=== PATIENT | male | born 1995 | race Caucasian/White ===

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

== ENCOUNTER 2017-01-13 22:41 | Inpatient (IN) | payer OTHER ==
[~2017-01-13] VITALS: Ht 162.6 cm; Wt 48.9 kg
[2017-01-13] MEDS ORDERED: ONDANSETRON INJ 2 MG/ML 2 ML VIAL IV STA (23:22)
[2017-01-13] MEDS ORDERED: MoRPHine SULFATE 10 MG/ML CARP/VIAL IV STA (23:22)
[2017-01-13] MEDS ORDERED: SODIUM CHLORIDE 0.9% 1000ML 1,000 ML IV STA (23:22)
[2017-01-13] MEDS ORDERED: SODIUM CHLORIDE 0.9% 1000ML 1,000 ML IV ONE (23:22)
--- NOTE | 2017-01-13 23:29 | EMERGENCY ROOM VISIT NOTE ---
History Report prepared by [facility]: Doreen Winston Under the Supervision of: Dr. Alex Nogueira M.D. First contact with patient: 23:16 Chief Complaint: ABDOMINAL PAIN Stated Complaint: PAIN Nursing Triage Summary: pt reports hx of sickle cell and a bad spleen. had sudden onset RUQ abdominal pain tonight. pt denies N/V/D. rates pain 10/10. History of Present Illness The patient is a 21 year old male who presents to the Emergency Room with complaints of persistent left upper quadrant abdominal pain that began today. He currently rates his discomfort as a 10/10 in severity. The patient states that he has a history of sickle cell anemia and states that he has a bad spleen. He states that his pain began suddenly today. The patient states that he is feeling short of breath today. He denies any trauma or injury to the area. The patient denies any fever chills, nausea, vomiting, or urinary symptoms. He states that he has had this happen in the past, noting that he previously used oxycodone for his discomfort. The patient denies any joint aches. He denies taking anything for his discomfort today. Source of History: patient Onset: today Position: abdomen (LUQ) Symptom Intensity: 10/10 Timing: other Associated Symptoms: + SOB, No chills, No fevers, No nausea, No vomiting Review of Systems See HPI for pertinent positives & negatives. A total of 10 systems reviewed and were otherwise negative. Past Medical & Surgical Medical Problems: (1) Elevated bilirubin (2) Intractable abdominal pain (3) Sickle cell anemia (4) Sickle cell anemia Old medical records were reviewed. Nurse's notes were reviewed and I agree with. 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 Normal speech HEENT: Normal cephalic atraumatic. Pupils are equal round and reactive to light. Sclera anicteric. Extraocular movements are intact. Oropharynx is pink with moist mucous membranes. No swelling of the mouth lips or tongue. Neck: Supple with a midline trachea. No meningeal signs or stiffness, no JVD or bruits. No Stridor. Chest: Clear to auscultation bilaterally. No wheezes or rhonchi. No increased work of breathing. Heart: regular rate and rhythm. Abdomen: Minimally diffusely tender. Soft, nondistended without rebound guarding or rigidity. Extremities: No cyanosis clubbing or edema. No calf tenderness or assymetry Spine/Back. Non tender to palpation. No CVA tenderness Skin: Good turgor without rashes. Neurologic exam: Cranial nerves two through 12 are intact. Motor and sensation are intact and symmetrical throughout. Medical Decision & Procedures ER Provider Diagnostic Interpretation: Chest x-ray per my interpretation reveals no pneumothorax, failure, infiltrate, or free air. CT results as stated below per my review and radiologist interpretation: CT Abdomen and Pelvis: Comparison is made to CT dated 11/01/16. There is minimal patchy groundglass opacity in the dependent right lower lobe. There is periportal edema, increased from prior exam. This can be seen in the setting of aggressive IV hydration in addition to pathological causes. The gallbladder, pancreas, adrenal glands, and kidneys are within normal limits. There is splenomegaly measuring 13.4 cm, decreased from 17 cm previously. Again noted are regions of infarction involving the inferior and medial spleen. The proportion of splenic tissue which enhances normally has increased from prior exam, no exceeding 50%. There is no perisplenic fluid. There is no evidence of small or large bowel obstruction. Multiple fluid- filled loops of small bowel are noted and may represent a nonspecific enteritis. The appendix is not clearly visualized, but there are no secondary signs of acute appendicitis. Urinary bladder and prostate are unremarkable. There are no acute osseous findings. There is stable mild H-shaped configuration of vertebral bodies, compatible with sickle cell disease. Radiologist: Mino Paz MD Study ready at 0041 and initial results transmitted at 0054 Laboratory Results 01/13/17 22:55 Red Blood Count 4.71, Mean Corpuscular Volume 70.9, Mean Corpuscular Hemoglobin 25.3, Mean Corpuscular Hemoglobin Concent 35.6, Neutrophils (%) (Auto) 34.6, Lymphocytes (%) (Auto) 46.0, Monocytes (%) (Auto) 13.2, Eosinophils (%) (Auto) 5.5, Basophils (%) (Auto) 0.5, Neutrophils # (Auto) 3.15, Lymphocytes # (Auto) 4.19, Monocytes # (Auto) 1.20, Eosinophils # (Auto) 0.50, Basophils # (Auto) 0.05 01/13/17 22:55 Test 01/13/17 22:55 White Blood Count 9.11 K/uL (4.8-10.8) Red Blood Count 4.71 M/uL (4.7-6.1) Hemoglobin 11.9 g/dL (14.0-18.0) Hematocrit 33.4 % (42-52) Mean Corpuscular Volume 70.9 fL (80-100) Mean Corpuscular Hemoglobin 25.3 pg (25-34) Mean Corpuscular Hemoglobin Concent 35.6 g/dl (32-36) Platelet Count 271 K/uL (130-400) Neutrophils (%) (Auto) 34.6 % Lymphocytes (%) (Auto) 46.0 % Monocytes (%) (Auto) 13.2 % Eosinophils (%) (Auto) 5.5 % Basophils (%) (Auto) 0.5 % Neutrophils # (Auto) 3.15 K/uL (1.4-6.5) Lymphocytes # (Auto) 4.19 K/uL (1.2-3.4) Monocytes # (Auto) 1.20 K/uL (0.11-0.59) Eosinophils # (Auto) 0.50 K/uL (0-0.5) Basophils # (Auto) 0.05 K/uL (0-0.2) RDW Standard Deviation 41.5 fL (36.4-46.3) RDW Coefficient of Variation 16.0 % (11.5-14.5) Immature Granulocyte % (Auto) 0.2 % Immature Granulocyte # (Auto) 0.02 K/uL (0.00-0.02) Absolute Reticulocyte Count 0.11 10^6/uL (0.02-0.10) Percent Reticulocyte Count 2.4 % (0.5-2.0) Anion Gap 9.0 mmol/L (3-11) Est Creatinine Clear Calc Drug Dose 120.9 ml/min Estimated GFR () > 150.0 Estimated GFR (Non- 138.5 BUN/Creatinine Ratio 12.5 (10-20) Calcium Level 8.8 mg/dl (8.5-10.1) Total Bilirubin 3.3 mg/dl (0.2-1) Direct Bilirubin 0.5 mg/dl (0-0.2) Aspartate Amino Transf (AST/SGOT) 48 U/L (15-37) Alanine Aminotransferase (ALT/SGPT) 44 U/L (12-78) Alkaline Phosphatase 51 U/L (45-117) Total Protein 8.3 gm/dl (6.4-8.2) Albumin 4.5 gm/dl (3.4-5.0) Lipase 92 U/L (73-393) Laboratory studies as stated above per my review. Medications Administered Medications (Trade) Dose Ordered Sig/Enmanuel Route Start Time Stop Time Status Last Admin Dose Admin Sodium Chloride 1,000 ml @ 999 mls/hr Q1H1M STAT IV 01/13/17 23:22 01/14/17 00:22 DC 01/13/17 23:31 999 MLS/HR Sodium Chloride (Nss 1000ml) 1,000 ml @ 200 mls/hr Q5H ONCE IV 01/13/17 23:22 01/14/17 02:54 DC 01/13/17 23:32 200 MLS/HR Ondansetron HCl (Zofran Inj) 4 mg NOW STAT IV 01/13/17 23:22 01/13/17 23:25 DC 01/13/17 23:31 4 MG Morphine Sulfate (MoRPHine SULFATE INJ) 6 mg NOW STAT IV 01/13/17 23:22 01/13/17 23:25 DC 01/13/17 23:32 6 MG Naloxone HCl (Narcan Inj) 0.4 mg STK-MED ONCE .ROUTE 01/13/17 23:33 01/13/17 23:36 DC 01/13/17 23:38 0.2 MG ED Course 2317: Past medical records reviewed. The patient was evaluated in room A12B, and a complete history and physical examination were performed. 2322: Ordered Morphine Sulfate 6 mg IV, Zofran Inj 4 mg IV, Sodium Chloride 1000 ml @ 200 mls/hr IV, Sodium Chloride 1000 ml @ 999 mls/hr IV. 2333: Ordered Narcan Inj 0.4 mg .route. 2337: After the patient received his narcotics, he became unresponsive and his saturation dropped. The patient was given .2 of Narcan and placed on oxygen. He immediately woke up. 2348: I reevaluated the patient and he is resting comfortably. He is mildly sleepy but arousable. He answers questions appropriately. The patient has an O2 saturation of 100%. 2358: I reevaluated the patient and he is awake, but still has mild pain. His vitals are stable. The patient is going to have a CT scan. 0018: I went to reevaluate the patient and he is at CT scan. 0054: I reevaluated the patient and he is pain free and resting comfortably. 0110: I discussed the patients case with Arthur Benitez. He recommends that the patient is evaluated for further treatment. 0116: I reevaluated the patient and he is resting. I discussed the exam findings with him and I discussed the treatment plan. He verbalized complete understanding and agreement. He will be evaluated for further treatment. 0129: I discussed the patients case with Dr. Koch, [facility] Resident. She will evaluate the patient for further treatment. Medical Decision Differentials include, but are not limited to; sickle cell crisis, gallbladder disease, liver disease, splenic process, electrolyte or metabolic abnormality, dehydration, anemia. This patient comes in as described above. He apparently has sickle cell disease and has abdominal pain and he's had this before. 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 He appears uncomfortable but his abdomen is nontender or distended. IV access established and blood work was obtained. I reviewed his old records and the last time and she was given morphine 6 mg IV and I gave him the same dose and it was given slowly however this made the patient very somnolent and he got briefly hypoxemic and unresponsive. He was given 0.2 mg of Narcan IV and woke up immediately. He remained stable after that and woke up and started complaining that he wanted more pain medication. He is not significantly anemic compared to baseline. He has no white count or fever to suggest infection. He has no significant electrolyte or metabolic abnormalities is told the bilirubin is mildly elevated as intensity of baseline is most likely related to his underlying hemoglobinopathy. He continue to be on a monitor while he was here I did a CT of his abdomen and pelvis. CAT scan shows no definite findings acutely. He does have splenic infarct which looks less than in October. I did discuss case Dr. Benitez ,who recommended we continue IV hydration and oxygen and he will see him in the morning and will likely be a little be discharged after some observation. The patient seems a feeling much better at present without pain. I did relay to the admitting team as well his sensitivity to pain medication. He will be observed Consults Time Called: 0108 Consulting Physician: Dr. Benitez, Oncology Returned Call: 0110 I discussed the patients case with Eli, Oncology. He recommends that the patient is evaluated for further treatment. Additional Consults: Time Called: 0128 Consulted Physician: LEENA Yang Resident Returned Call: 0129 Additional Comments: I discussed the patients case with Dr. Koch, [facility] [place] Resident. She will evaluate the patient for further treatment. Impression Primary Impression: Central abdominal pain Additional Impressions: Sickle cell disease Splenic infarct Scribe Attestation The scribe's documentation has been prepared under my direction and personally reviewed by me in its entirety. I confirm that the note above accurately reflects all work, treatment, procedures, and medical decision making performed by me. Departure Information Dispostion Being Evaluated By Hospitalist Prescriptions No Active Prescriptions or Reported Meds Referrals No Doctor, Assigned (PCP) Problem Qualifiers
[2017-01-13] MEDS ORDERED: NALOXONE HCL 0.4 MG/1 ML VIAL/CARP ONE (23:33)
[2017-01-13 23:39] LABS: BASO % 0.5 %; BASO ABS # 0.05 K/uL (0-0.2); COMPLETE YES; EOS % 5.5 %; HEMATOCRIT 33.4 % (42-52); IG% 0.2 %; LYMPH ABS # 4.19 K/uL (1.2-3.4); MEAN CELL VOLUME 70.9 fL (80-100); MEAN CORPUSCULAR HEMOGLOBIN 25.3 pg (25-34); MEAN CORPUSCULAR HGB CONC 35.6 g/dl (32-36); MONO % 13.2 %; NEUT % 34.6 %; PLATELET COUNT 271 K/uL (130-400); RED BLOOD COUNT 4.71 M/uL (4.7-6.1); WHITE BLOOD COUNT 9.11 K/uL (4.8-10.8)
[2017-01-13 23:54] LABS: BLOOD UREA NITROGEN 9 mg/dl (7-18); BUN/CREATININE RATIO 12.5 (10-20); CALCIUM 8.8 mg/dl (8.5-10.1); CARBON DIOXIDE 30 mmol/L (21-32); CHLORIDE 105 mmol/L (98-107); CREATININE 0.68 mg/dl (0.60-1.40); GLUCOSE 114 mg/dl (70-99); POTASSIUM 3.5 mmol/L (3.5-5.1); SODIUM 144 mmol/L (136-145)
[2017-01-13 23:57] LABS: ALKALINE PHOSPHATASE 51 U/L (45-117); ALT/SGPT 44 U/L (12-78); AST/SGOT 48 U/L (15-37)
[2017-01-14] MEDS ORDERED: OPTIRAY 320 IV PRN
[2017-01-14] MEDS ORDERED: POLYETHYLENE (MIRALAX) 17 GM PACK PO PRN (02:00)
[2017-01-14] MEDS ORDERED: MAGNESIUM HYDROXIDE SUSP 30 ML UDC PO PRN (02:00)
[2017-01-14] MEDS ORDERED: ZOLPIDEM TARTRATE 5 MG TAB PO PRN (02:00)
[2017-01-14] MEDS ORDERED: ONDANSETRON INJ 2 MG/ML 2 ML VIAL IV PRN (02:00)
[2017-01-14] MEDS ORDERED: ACETAMINOPHEN 325 MG TAB PO PRN (02:00)
[2017-01-14] MEDS ORDERED: ALUMINUM/MAGNESIUM/SIMETH (MAALOX MAX) 30 ML UDC PO PRN (02:00)
--- NOTE | 2017-01-14 02:10 | History and Physical ---
History & Physical Date & Time of Service: Jan 14, 2017 at 02:02 Chief Complaint: PAIN Primary Care Physician: Jeronimo Benitez D.O. 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 He was recently admitted in October and found to have a splenic infarct after flying back from [facility] and was dehydrated. He reports ascites been getting abdominal pain monthly when she will just take oxycodone for annual resolved. He developed severe sudden onset pain today, this is located in the epigastric region, was associated with shortness of breath, and he felt he "felt like he was going to " so he came to the ED. He was given 6 mg of IV morphine, this was where he would've received previously, but then his saturations dropped and he ended up needing Narcan. Currently he reports his pain is better controlled. He denies feeling short of breath anymore. He was meant to have an appointment with Dr. Benitez tomorrow at 8:30 to discuss going on hydroxyurea. 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 A total of 10 systems reviewed and were otherwise negative. Physical Exam Vital Signs Date Time Temp Pulse Resp B/P Pulse Ox O2 Delivery O2 Flow Rate FiO2 01/14/17 00:35 62 16 112/81 100 Nasal Cannula 2.0 01/13/17 22:44 36.4 64 22 111/74 97 Room Air GENERAL: Awake, alert, well-appearing, in no acute distress HENT: Normocephalic, atraumatic. Oropharynx unremarkable. EYES: Normal conjunctiva. Sclera non-icteric. NECK: Supple. No nuchal rigidity. FROM. No JVD. RESPIRATORY: Clear to auscultation. CARDIAC: Regular rate, normal rhythm. Extremities warm and well perfused. Pulses equal. ABDOMEN: Soft, non-distended. Mild epigastric tenderness to palpation. No rebound or guarding. No masses. RECTAL: Deferred. MUSCULOSKELETAL: Chest examination reveals no tenderness. The back is symmetrical on inspection without obvious abnormality. There is no CVA tenderness to palpation. No joint edema. LOWER EXTREMITIES: Calves are equal size bilaterally and non-tender. No edema. No discoloration. NEURO: Normal sensorium. No sensory or motor deficits noted. SKIN: No rash or jaundice noted. Diagnostics Laboratory Results Results Past 24 Hours Test 01/13/17 22:55 Range/Units White Blood Count 9.11 4.8-10.8 K/uL Red Blood Count 4.71 4.7-6.1 M/uL Hemoglobin 11.9 14.0-18.0 g/dL Hematocrit 33.4 42-52 % Mean Corpuscular Volume 70.9 80-100 fL Mean Corpuscular Hemoglobin 25.3 25-34 pg Mean Corpuscular Hemoglobin Concent 35.6 32-36 g/dl Platelet Count 271 130-400 K/uL Neutrophils (%) (Auto) 34.6 % Lymphocytes (%) (Auto) 46.0 % Monocytes (%) (Auto) 13.2 % Eosinophils (%) (Auto) 5.5 % Basophils (%) (Auto) 0.5 % Neutrophils # (Auto) 3.15 1.4-6.5 K/uL Lymphocytes # (Auto) 4.19 1.2-3.4 K/uL Monocytes # (Auto) 1.20 0.11-0.59 K/uL Eosinophils # (Auto) 0.50 0-0.5 K/uL Basophils # (Auto) 0.05 0-0.2 K/uL RDW Standard Deviation 41.5 36.4-46.3 fL RDW Coefficient of Variation 16.0 11.5-14.5 % Immature Granulocyte % (Auto) 0.2 % Immature Granulocyte # (Auto) 0.02 0.00-0.02 K/uL Absolute Reticulocyte Count 0.11 0.02-0.10 10^6/uL Percent Reticulocyte Count 2.4 0.5-2.0 % Sodium Level 144 136-145 mmol/L Potassium Level 3.5 3.5-5.1 mmol/L Chloride Level 105 98-107 mmol/L Carbon Dioxide Level 30 21-32 mmol/L Anion Gap 9.0 3-11 mmol/L Blood Urea Nitrogen 9 7-18 mg/dl Creatinine 0.68 0.60-1.40 mg/dl Est Creatinine Clear Calc Drug Dose 120.9 ml/min Estimated GFR () > 150.0 Estimated GFR (Non- 138.5 BUN/Creatinine Ratio 12.5 10-20 Random Glucose 114 70-99 mg/dl Calcium Level 8.8 8.5-10.1 mg/dl Total Bilirubin 3.3 0.2-1 mg/dl Direct Bilirubin 0.5 0-0.2 mg/dl Aspartate Amino Transf (AST/SGOT) 48 15-37 U/L Alanine Aminotransferase (ALT/SGPT) 44 12-78 U/L Alkaline Phosphatase 51 45-117 U/L Total Protein 8.3 6.4-8.2 gm/dl Albumin 4.5 3.4-5.0 gm/dl Lipase 92 73-393 U/L Diagnostic Radiology CT Abdomen and Pelvis: Comparison is made to CT dated 11/01/16. There is minimal patchy groundglass opacity in the dependent right lower lobe. There is periportal edema, increased from prior exam. This can be seen in the setting of aggressive IV hydration in addition to pathological causes. The gallbladder, pancreas, adrenal glands, and kidneys are within normal limits. There is splenomegaly measuring 13.4 cm, decreased from 17 cm previously. Again noted are regions of infarction involving the inferior and medial spleen. The proportion of splenic tissue which enhances normally has increased from prior exam, no exceeding 50%. There is no perisplenic fluid. There is no evidence of small or large bowel obstruction. Multiple fluid- filled loops of small bowel are noted and may represent a nonspecific enteritis. The appendix is not clearly visualized, but there are no secondary signs of acute appendicitis. Urinary bladder and prostate are unremarkable. There are no acute osseous findings. There is stable mild H-shaped configuration of vertebral bodies, compatible with sickle cell disease. Radiologist: Mino Paz MD Study ready at 0041 and initial results transmitted at 0059 Impression Assessment and Plan 21 yo M with sickle cell with acute abdominal pain, likely from enteritis Abdominal pain - Toradol 15mg q4h - Morphine 1-2mg q4h PRN - IV fluids - Regular diet Sickle cell - Consult Dr Benitez Level of Care Med/Surg VTE Prophylaxis VTE Risk Assessment Done? Y/N: Yes Risk Level: Moderate Resident Tracking Resident Involvement: Resident Care Provided Care Provided: Adult [facility] Medicine Assessment and Plan Attending Addendum: I have physically seen and examined this patient, have directed their medical care, have supervised the medical residents activities, and agree with the H&P as noted above, with the following changes: The patient is awake, well-developed and adequately nourished, alert and oriented 3, normocephalic and atraumatic, lying in bed and in no acute distress. HEENT--PERRL, EOMI, mucous membranes and oropharynx dry. Neck--supple, no JVD or bruits, thyroid normal, trachea midline, no adenopathy. Heart--normal S1 and S2, no extra beats, no murmurs, rubs or gallops. Lungs--clear bilaterally with good air movement, no respiratory distress, no accessory muscle use. Abdomen--normal bowel sounds and soft, nontender and nondistended, no hernias or masses, no organomegaly. Extremities--no cyanosis, clubbing or edema. There are good distal pulses b/l. Dermatologic--normal skin turgor, normal color, warm and dry, no abnormal lymph nodes, no rash. Neurologic--cranial nerves II through XII grossly intact, motor and sensory examination normal. Rheumatologic--normal range of motion, nontender, muscles and joints. Psychiatric--normal affect. Assessment and Plan: Sickle cell disease/acute abdominal pain/history of splenic infarcts/enteritis-- the patient be admitted to the hospital. He'll be allowed a regular diet, IV fluids at 100 mils per hour, Zofran 4 mg IV every 6 hours when necessary, Protonix 40 mg IV daily, Toradol 15 mg IV every 4 hours when necessary, and morphine sulfate 12 mg IV every 4 hours when necessary. 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
[2017-01-14] MEDS ORDERED: KETOROLAC TROMETHAMINE 15 MG/ML VIAL IV PRN (02:15)
[2017-01-14] MEDS ORDERED: MoRPHine SULFATE 2 MG/ML CARP IV PRN (02:15)
[2017-01-14 02:40] VITALS: BP 111/74; PULSE 51; TEMP 37.9; O2SAT 100; Ht 162.6 cm; Wt 48.9 kg
[2017-01-14] MEDS ORDERED: SODIUM CHLOR 0.45% + 20MEQ KCL 1,000 ML IV SCH (03:00)
[2017-01-14 05:46] LABS: URINE APPEARANCE CLOUDY (CLEAR); URINE BILIRUBIN NEG (NEG); URINE COLOR YELLOW; URINE NITRITE NEG (NEG); URINE PH 7.5 (4.5-7.5); URINE SPECIFIC GRAVITY 1.034 (1.000-1.030); UROBILINOGEN NEG (NEG)
[2017-01-14 05:47] LABS: MANUAL MICROSCOPIC REQUIRED? NO; REVIEW REQ? NO
--- NOTE | 2017-01-14 07:29 | DIAGNOSTIC IMAGING REPORT ---
CHEST ONE VIEW PORTABLE HISTORY: Atypical CHEST PAIN COMPARISON: Chest 11/01/2016. FINDINGS: The lungs are clear. Cardiac silhouette is top normal in size. No pleural effusions. No pneumothorax. IMPRESSION: No acute process. Electronically signed by: Rodolfo Anna M.D. 01/14/2017 7:28 AM Dictated Date/Time: 01/14/2017 7:26 AM
--- NOTE | 2017-01-14 07:50 | DIAGNOSTIC IMAGING REPORT ---
ABDOMEN AND PELVIS CT WITH IV CONTRAST CT DOSE: 265.49 mGy.cm HISTORY: eval for splenic disease, upper abdominal pain. TECHNIQUE: Multiaxial CT images of the abdomen and pelvis were performed following the use of intravenous contrast. COMPARISON STUDY: Abdomen and pelvis CT 11/01/2016. FINDINGS: The heart remains top normal in size. Faint groundglass densities within the right lower lobe posteriorly. These are new from the prior study. The left lung base is clear. No pneumoperitoneum. No pneumatosis. No fractures within the visualized osseous structures. Mild periportal edema which could be due to overhydration. No hepatic masses. The adrenal glands and pancreas are unremarkable. There is a small gallstone. The kidneys enhance normally. No hydronephrosis. No retroperitoneal lymphadenopathy. Mild mesenteric lymphadenopathy persists. Normal bladder. No bowel wall thickening or obstruction. Normal appendix. The spleen is decreased in size and now measures 13 cm in length, previously measuring 17 cm. The decreased enhancement within the inferior and medial aspect of the spleen is consistent with a splenic infarct. This has improved. Moderately distended debris-filled stomach. This remains unchanged. IMPRESSION: 1. Decrease in size of the spleen with improvement in the splenic infarct. 2. Faint patchy groundglass airspace opacities within the right lower lobe posteriorly. This could represent atelectasis, a small area of pneumonia, or acute chest syndrome given the patient's history of sickle cell disease. 3. Cholelithiasis. 4. No bowel wall thickening or obstruction. 5. Mild mesenteric lymphadenopathy, unchanged. 6. Mild periportal edema which could be due to overhydration. Electronically signed by: Rodolfo Anna M.D. 01/14/2017 7:48 AM Dictated Date/Time: 01/14/2017 7:42 AM
--- NOTE | 2017-01-14 08:27 | Progress Note ---
Progress Note Date of Service Jan 14, 2017. Progress Note Patient admitted in the early am for Sickle Cell crisis. Pain is controlled now. awaiting consult from heme/onc.
--- NOTE | 2017-01-14 08:45 | Oncology Consultation ---
Oncology/Heme Consultation Date of Consultation: Jan 14, 2017. Attending Physician: René Bundy M.D. 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 He is really never had an issue with crisis except when he was much younger. However recently he was hospitalized with splenic infarction. He was actually scheduled to follow-up in our clinic today. Last evening he was admitted with sharp midepigastric abdominal pain that seemed to radiate into the left upper quadrant. He became concerned and presented to the emergency room. Blood work was acceptable. Interestingly the CT scan which was reviewed shows a fair amount of splenic tissue that has radiologically recovered since his splenic infarction. Otherwise the really wasn't much change to his CT scan. This morning he feels generally well. He states his pain is better. 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 student Allergies Coded Allergies: No Known Allergies (Unverified , 11/01/16) Home Medications No Active Prescriptions or Reported Meds Current Inpatient Medications Current Inpatient Medications Medications (Trade) Dose Ordered Sig/Enmanuel Route Start Time Stop Time Status Last Admin Dose Admin Ioversol (Optiray 320) 100 ml UD PRN IV 01/14/17 00:00 01/18/17 00:00 Al Hydrox/Mg Hydrox/Simethicone (Maalox Max Susp) 15 ml Q4H PRN PO 01/14/17 02:00 02/13/17 01:59 Magnesium Hydroxide (Milk Of Magnesia Susp) 30 ml Q6H PRN PO 01/14/17 02:00 02/13/17 01:59 Polyethylene (Miralax Powder Packet) 17 gm DAILY PRN PO 01/14/17 02:00 02/13/17 01:59 Zolpidem Tartrate (Ambien Tab) 5 mg HSZ PRN PO 01/14/17 02:00 02/13/17 01:59 Ondansetron HCl (Zofran Inj) 4 mg Q6H PRN IV 01/14/17 02:00 02/13/17 01:59 Morphine Sulfate (MoRPHine SULFATE INJ) @ Q4H PRN IV 01/14/17 02:15 01/28/17 02:14 Ketorolac Tromethamine 15 mg 15 mg Q6H PRN IV 01/14/17 02:15 01/19/17 02:14 01/14/17 05:21 15 MG Potassium Chloride/Sodium Chloride 1,000 ml @ 100 mls/hr Q10H IV 01/14/17 03:00 01/14/17 22:59 01/14/17 02:59 100 MLS/HR Pantoprazole Sodium/Syringe (Protonix Inj/ Syringe) 10 ml @ 5 mls/min DAILY@11 IV 01/14/17 11:00 02/13/17 10:59 Review of Systems Constitutional: Negative for weight loss, night sweats, or fever Eyes: Negative for event change of vision ENT: Negative for epistaxis, nasal discharge, sore throat, or deafness Cardiovascular: Negative for chest pain, palpitations, dizziness, diaphoresis Respiratory: Negative for new shortness of breath,hemoptysis, or purulent cough Gastrointestinal: Negative for diarrhea, hematemesis, melena, nausea, vomiting , or dyspepsia Integumentary (skin): Negative for rash or jaundice discoloration Genitourinary: Negative for urinary frequency, hematuria, or dysuria Neurological: Negative for weakness, seizure activity, headache, or dizziness Lymphatic/Hematologic: Negative for petechiae, bleeding or new adenopathy Musculoskeletal: Negative for new joint or back pain Allergic/Immunologic: Negative for unusual rash or pruritis. Physical Exam Date Time Temp Pulse Resp B/P Pulse Ox O2 Delivery O2 Flow Rate FiO2 01/14/17 02:40 Nasal Cannula 2.0 01/14/17 02:40 37.9 51 18 111/74 100 Nasal Cannula 2.0 01/14/17 02:21 58 18 97/69 100 01/14/17 02:20 58 18 97/69 100 Nasal Cannula 2.0 01/14/17 00:35 62 16 112/81 100 Nasal Cannula 2.0 01/13/17 22:44 36.4 64 22 111/74 97 Room Air Constitutional: vitals are stable. Eyes: Eyes are RORY EOMI without conjuctival erythema or icterus. ENT: External examination was negative for masses. Neck: Negative for masses or palpable thyromegaly Respiratory: Lung sounds were generally clear bilaterally Cardiovascular: Heart was RRR without significant murmur, gallops aoe rubs Gastrointestinal: No palpable hepatic or splenomegaly. The abdomen was soft with normal bowel sounds. Lymphatic system: there was no palpable peripheral lymphadenopathy Musculoskeletal System: The musculoskeletal system seemed concordant with age. Skin: The skin was negative for jaundice. Neurologic exam: The exam was negative for any focal findings. Deep tendon reflexes were equal and symmetrical. Psychiatric exam: Was essentially negative with normal mood and effect. Extremities: Negative for edema or erythema Laboratory Results Last 24 Hours Test 01/13/17 22:55 01/14/17 00:00 01/14/17 06:35 White Blood Count 9.11 K/uL Red Blood Count 4.71 M/uL Hemoglobin 11.9 g/dL Hematocrit 33.4 % Mean Corpuscular Volume 70.9 fL Mean Corpuscular Hemoglobin 25.3 pg Mean Corpuscular Hemoglobin Concent 35.6 g/dl Platelet Count 271 K/uL Neutrophils (%) (Auto) 34.6 % Lymphocytes (%) (Auto) 46.0 % Monocytes (%) (Auto) 13.2 % Eosinophils (%) (Auto) 5.5 % Basophils (%) (Auto) 0.5 % Neutrophils # (Auto) 3.15 K/uL Lymphocytes # (Auto) 4.19 K/uL Monocytes # (Auto) 1.20 K/uL Eosinophils # (Auto) 0.50 K/uL Basophils # (Auto) 0.05 K/uL RDW Standard Deviation 41.5 fL RDW Coefficient of Variation 16.0 % Immature Granulocyte % (Auto) 0.2 % Immature Granulocyte # (Auto) 0.02 K/uL Absolute Reticulocyte Count 0.11 10^6/uL Percent Reticulocyte Count 2.4 % Sodium Level 144 mmol/L Potassium Level 3.5 mmol/L Chloride Level 105 mmol/L Carbon Dioxide Level 30 mmol/L Anion Gap 9.0 mmol/L Blood Urea Nitrogen 9 mg/dl Creatinine 0.68 mg/dl Est Creatinine Clear Calc Drug Dose 120.9 ml/min Estimated GFR () > 150.0 Estimated GFR (Non- 138.5 BUN/Creatinine Ratio 12.5 Random Glucose 114 mg/dl Calcium Level 8.8 mg/dl Total Bilirubin 3.3 mg/dl Direct Bilirubin 0.5 mg/dl Aspartate Amino Transf (AST/SGOT) 48 U/L Alanine Aminotransferase (ALT/SGPT) 44 U/L Alkaline Phosphatase 51 U/L Total Protein 8.3 gm/dl Albumin 4.5 gm/dl Lipase 92 U/L Urine Color YELLOW Urine Appearance CLOUDY Urine pH 7.5 Urine Specific [place] 1.034 Urine Protein NEG Urine Glucose (UA) NEG Urine Ketones NEG Urine Occult Blood NEG Urine Nitrite NEG Urine Bilirubin NEG Urine Urobilinogen NEG Urine Leukocyte Esterase NEG Urine WBC (Auto) 1-5 /hpf Urine RBC (Auto) 0-4 /hpf Urine Hyaline Casts (Auto) 1-5 /lpf Urine Epithelial Cells (Auto) 10-20 /lpf Urine Bacteria (Auto) NEG Lactate Dehydrogenase 258 U/L Assessment & Plan Variant hemoglobin S that is sickle cell hemoglobin S with hereditary persistent hemoglobin. LDH is 258. I doubt that the abdominal pain was a result of crisis however this will have to remain unclear. If an amylase and lipase marked on done and we should do those tests. However this morning he looks and quite stable. His abdomen is soft. If in fact he is able to eat then I suspect he can be discharged. He was actually scheduled to be seen in our clinic today. One of the topics that was to be discussed was beginning hydroxyurea. I started my discussion by trying to delay beginning Hydrea until there was clear stability in regards to his abdomen. However he was aware of this drug and wanted to begin. He understands that it is a form of chemotherapy. We will begin had a small dose of the prescription of 500 mg capsules were given to him to begin as an outpatient. The major potential side effects of mild nausea and risk of cytopenias with risk of fever and infection were all reviewed with him. He will have a follow-up in our clinic in about 2 weeks. He appears clinically quite stable. I did point out to him that using Hydrea in this circumstance is debatable. The role and mechanism of using Hydrea in straightforward sickle cell is to ameliorate the disease by increasing hemoglobin. His hemoglobinopathy is such that his hemoglobin is already quite elevated. However there is a secondary component and potential mechanism for Hydrea in that it does affect the deep of red cells and the red cells and there flow (rheology). He understands this but one a to begin the medicine. Thank you for helping in his care.
[2017-01-14] MEDS ORDERED: HYDR500C3 PO (09:02)
[2017-01-14] MEDS ORDERED: OXYC-106 PO (09:02)
--- NOTE | 2017-01-14 09:05 | Discharge Instructions ---
Discharge Instructions Date of Service Jan 14, 2017. Admission Reason for Admission: Abdominal pain, Sickle Cell disease Discharge Discharge Diagnosis / Problem: Abdominal pain/Sickle Cell disease/ cholelithiasis Discharge Goals Goal(s): Decrease discomfort, Increase independence Activity Recommendations Activity Limitations: resume your previous activity . Instructions / Follow-Up Instructions / Follow-Up PCP - 5-7 days Hematology, Dr. Benitez - call office to schedule an appointment for 2 weeks from now. Current Hospital Diet Patient's current hospital diet: Regular Diet Discharge Diet Recommended Diet: Regular Diet Procedures Procedures Performed: NONE> Pending Studies Studies pending at discharge: no Medical Emergencies . Who to Call and When: Medical Emergencies: If at any time you feel your situation is an emergency, please call 911 immediately. . Non-Emergent Contact Non-Emergency issues call your: Primary Care Provider . . "Provider Documentation" section prepared by Osman Valle. VTE Core Measure Inpt VTE Proph given/why not?: Davion Robertson, [facility]
[2017-01-14 10:23] VITALS: BP 111/74; PULSE 51; TEMP 37.9; O2SAT 100
[2017-01-14] MEDS ORDERED: PANTOprazole INJ 40 MG in SYRINGE 0 ML IV SCH (11:00)
--- NOTE | 2017-01-14 11:52 | Discharge Summary ---
Discharge Summary Date of Service Jan 14, 2017. Discharge Summary Admission Date: Jan 14, 2017 at 01:56 Discharge Date: Jan 14, 2017 Discharge Disposition: Home Principal Diagnosis: Abdominal pain Problems/Secondary Diagnoses: Sickle cell disease/cholelithiasis Procedures: None. Consultations: Hematology, Dr. Benitez Medication Reconciliation New Medications: Hydroxyurea (Hydrea Cap) 500 Mg Cap 500 MG PO DAILY for 30 Days, #30 CAP NS Oxycodone/Acetaminophen 10MG/325MG (Percocet 10MG/325MG) Tab 1 TAB PO DIRECTED PRN for Pain for 10 Days, #20 TAB NS Discharge Exam A 10 system review was performed and all were negative. GEN: Awake, alert, and oriented x 3. Not in acute distress HEENT: Tm's intact, no inflammation, EOMI, PERRLA, MMM Neck: Soft, supple Lungs: CTA b/l, no r/r/w Heart: REG, nrl S1S2 without murmurs, rubs or gallops Abdomen: Soft, NT, ND, + BS EXT: No C/C/E NEURO: CN's II-XII grossly intact, non-focal Skin: warm, dry, no rashes PSYCH: pleasant, cooperative, no signs of significant anxiety or depression. Hospital Course This 21 year old male with a history of sickle cell disease and a partial splenic infarction had sudden onset of severe abdominal pain that started in the right upper quadrant and then moved across his abdomen to the left upper ( the area that he has pain with sickle disease). In the ED he was given dose of IV Morphine and became hypoxemic which was treated with dose of Narcan. He did well through the night. This am he had no pain at all. Hematology evaluated the patient and the patient was started on hydroxyurea. I doubt that his pain was from sickle crisis. Interestingly, his CT scan of the abdomen/pelvis did show cholelithiasis. Perhaps his pain was related to this or gastroenteritis. 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 I did give him a script for oxycodone/ APAP which he had at home in [facility] to use prn. He will follow up with Dr. Benitez in 2 weeks. Total Time Spent: Greater than 30 minutes This includes examination of the patient, discharge planning, medication reconciliation, and communication with other providers. Discharge Instructions Please refer to the electronic Patient Visit Report (Discharge Instructions) for additional information. Follow-Up PCP - 5-7 days Hematology, Dr. Benitez - in 2 weeks.
[2017-01-22 22:29] LABS: HCT 31.2 % (38.5-50.0); HEMOGLOBIN A2 1.8 % (1.8-3.5); HEMOGLOBIN F 24.3 % (<2.0); HEMOGLOBIN S 71.2 % (0.0); HGB 10.3 g/dL (13.2-17.1); MCH 25.8 pg (27.0-33.0); RDW 16.3 % (11.0-15.0)
== END 2017-01-14 10:48 | disposition home or self-care (01) | DRG 812 ==
LOC: ENRESERVTM → ENRESERVDT → C.EDB 22:43 → C.MSN 01-14 01:56
PROVIDERS: ADMIT Hospitalist; ATTEND Hospitalist
DX: D57.00 Hb-SS disease with crisis, unspecified (principal); I25.2 Old myocardial infarction; K80.20 Calculus of gallbladder without cholecystitis without obstruction

== ENCOUNTER 2017-01-16 21:04 | Inpatient (IN) | payer OTHER ==
[~2017-01-16] VITALS: Ht 162.6 cm; Wt 48.5 kg
[~2017-01-16 21:04] MED LIST changes: +HYDR500C3 PO; +OXYC-106 PO; -OXYC-88 PO
[2017-01-16] MEDS ORDERED: SODIUM CHLORIDE 0.9% 1000ML 2,000 ML IV STA (21:17)
[2017-01-16] MEDS ORDERED: ONDA4TAB46 PO (21:23)
[2017-01-16 21:29] LABS: BASO % 0.1 %; BASO ABS # 0.02 K/uL (0-0.2); EOS % 0.4 %; HEMATOCRIT 34.7 % (42-52); IG% 0.4 %; LYMPH % 6.8 %; LYMPH ABS # 1.05 K/uL (1.2-3.4); MEAN CELL VOLUME 69.8 fL (80-100); MEAN CORPUSCULAR HEMOGLOBIN 24.9 pg (25-34); MEAN CORPUSCULAR HGB CONC 35.7 g/dl (32-36); NEUT % 83.3 %; PLATELET COUNT 261 K/uL (130-400); RED BLOOD COUNT 4.97 M/uL (4.7-6.1); WHITE BLOOD COUNT 15.35 K/uL (4.8-10.8)
[2017-01-16] MEDS ORDERED: ONDANSETRON INJ 2 MG/ML 2 ML VIAL IV STA (21:46)
[2017-01-16 21:51] LABS: ALKALINE PHOSPHATASE 95 U/L (45-117); ALT/SGPT 159 U/L (12-78); AST/SGOT 82 U/L (15-37); BLOOD UREA NITROGEN 8 mg/dl (7-18); CALCIUM 8.8 mg/dl (8.5-10.1); CARBON DIOXIDE 28 mmol/L (21-32); CHLORIDE 97 mmol/L (98-107); CREATININE 0.79 mg/dl (0.60-1.40); GLUCOSE 98 mg/dl (70-99); POTASSIUM 3.5 mmol/L (3.5-5.1); SODIUM 135 mmol/L (136-145)
[2017-01-16] MEDS: FENTANYL CITRATE INJ 50 MCG/1 ML 2 ML VIAL IV PRN ×2 (21:54→22:50)
[2017-01-16 22:30] LABS: COMPLETE YES; OVALOCYTES 1+; POIKILOCYTOSIS PRESENT; POLYCHROMASIA 1+; SCHISTOCYTES OCCASIONAL
[2017-01-16 22:38] LABS: ANISOCYTOSIS PRESENT; MICROCYTOSIS PRESENT
--- NOTE | 2017-01-16 22:40 | DIAGNOSTIC IMAGING REPORT ---
ULTRASOUND RIGHT UPPER QUADRANT ABDOMEN CLINICAL HISTORY: Right upper quadrant abdominal pain. COMPARISON STUDY: Abdominal CT dated 01/14/2017. TECHNIQUE: Real-time, grayscale, and color flow sonography of the right upper quadrant of the abdomen was performed. Images are reviewed in the transverse and longitudinal planes. FINDINGS: Liver: The liver is normal in size and echotexture. There is no intrahepatic biliary ductal dilatation. The main portal vein is patent. Gallbladder: The gallbladder is distended and filled with sludge and stones. The gallbladder wall is thickened and hyperemic measuring up to 4 mm. There is a small volume of free fluid in the right upper quadrant. A sonographic Ruelas's sign is reportedly present. The common bile duct measures up to 0.9 cm in diameter. Pancreas: Not well visualized due to overlying bowel gas. Right kidney: Survey images of the right kidney demonstrate normal size and echotexture. There is no hydronephrosis. Ascites: A small volume of free fluid is seen in the right upper quadrant. IMPRESSION: Cholelithiasis and biliary sludge with sonographic evidence of acute cholecystitis. Surgical consultation is advised. Electronically signed by: Doug Cabrera M.D. 01/16/2017 10:39 PM Dictated Date/Time: 01/16/2017 10:37 PM
[2017-01-16] MEDS ORDERED: PIPERACILLIN/TAZOBACTAM 4.5 GM/100ML D5W IV STA (22:45)
[2017-01-16] MEDS ORDERED: LACTATED RINGER'S 1000ML 1,000 ML IV STA (23:01)
[2017-01-17] MEDS: FENTANYL CITRATE INJ 50 MCG/1 ML 2 ML VIAL IV PRN ×2 (00:20→01:08)
[2017-01-17] MEDS ORDERED: PROMETHAZINE HCL INJ 25 MG in SODIUM CHLORIDE 0.9% 50ML 50 ML IV PRN (01:15)
[2017-01-17] MEDS ORDERED: MoRPHine SULFATE 4 MG/ML 1 ML CARP\\VIAL IV PRN (01:15)
[2017-01-17] MEDS ORDERED: ONDANSETRON INJ 2 MG/ML 2 ML VIAL IV PRN (01:15)
[2017-01-17] MEDS ORDERED: ACETAMINOPHEN IV 100 ML IV PRN (01:15)
[2017-01-17] MEDS ORDERED: VANCOMYCIN INJ 1,200 MG in SODIUM CHLORIDE 0.9% 250ML 250 ML IV STA (01:57)
--- NOTE | 2017-01-17 02:20 | EMERGENCY ROOM VISIT NOTE ---
History Report prepared by [facility]: Booker Powers Under the Supervision of: Dr. Watson Lazaro M.D. First contact with patient: 21:17 Chief Complaint: ABDOMINAL PAIN Stated Complaint: ABD PAIN Nursing Triage Summary: pt reports diffuse abdominal pain , reports admission to hosp. last week for dx of sickle cell crisis , states this belly pain is the same as last week. ,+ NV , I used the oxycodone for the pain it is not helping History of Present Illness The patient is a 21 year old male who presents to the Emergency Room with complaints of diffuse abdominal pain that began last night. He rates his pain an 8/10 in severity. His pain is radiating into his back as well. The patient was admitted to the hospital over night last week secondary to a sickle cell crisis. This is the first time that has happened to him. He states that his pain is similar to the same pain he felt at that time. He is also experiencing nausea and vomiting. He began having sickle cell problems last September. He has been having dark urine as well. He has been taking Oxycodone which has not been helping. He also took Zofran NIP WRAPPER. Patient denies LOC, headache, fevers, chills, diaphoresis, visual changes, neck pain, chest pain, breathing difficulties, melena, hematochezia, , numbness, weakness, lymphadenopathy, rash, or other complaints. Source of History: patient Onset: Last night Position: abdomen Symptom Intensity: 8/10 Quality: sharp Timing: constant Associated Symptoms: + back pain, + nausea, + urinary symptoms, + vomiting Review of Systems See HPI for pertinent positives and negatives. A total of ten systems were reviewed and were otherwise negative. Past Medical & Surgical Medical Problems: (1) Acute cholecystitis (2) Acute gallstone pancreatitis (3) Elevated bilirubin (4) Intractable abdominal pain (5) Sickle cell anemia (6) Sickle cell anemia Family History Diabetes mellitus FH: heart disease Hypertension Kidney disease Social History Smoking Status: Current Every Day Smoker Alcohol Use: none Marital Status: single 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: [employer] Current/Historical Medications Scheduled Hydroxyurea (Hydrea Cap), 500 MG PO DAILY Scheduled PRN Ondansetron Hcl (Zofran), 4 MG PO Q6H PRN for Nausea Oxycodone/Acetaminophen 10MG/325MG (Percocet 10MG/325MG), 1 TAB PO DIRECTED PRN for Pain Allergies Coded Allergies: No Known Allergies (Unverified , 11/01/16) Physical Exam Vital Signs Date Time Temp Pulse Resp B/P Pulse Ox O2 Delivery O2 Flow Rate FiO2 01/17/17 01:56 37.1 118 16 117/68 95 01/17/17 01:34 118 16 95 01/17/17 01:30 117/68 01/17/17 01:04 102 19 99 01/17/17 01:00 120/74 01/17/17 00:34 72 17 97 01/17/17 00:30 109/67 01/17/17 00:24 72 20 109/61 96 Room Air 01/17/17 00:04 73 22 99 01/17/17 00:00 109/61 01/16/17 23:37 81 20 110/68 97 Room Air 01/16/17 23:34 86 20 98 01/16/17 23:30 110/68 01/16/17 23:04 93 20 97 01/16/17 23:00 117/66 01/16/17 22:55 93 20 120/81 96 Room Air 01/16/17 22:51 120/81 01/16/17 22:04 72 18 100 01/16/17 22:00 131/90 01/16/17 21:57 77 20 127/87 97 Nasal Cannula 2.0 01/16/17 21:56 97 Nasal Cannula 2.0 01/16/17 21:56 86 Room Air 01/16/17 21:34 94 23 100 01/16/17 21:30 127/87 01/16/17 21:29 87 20 127/87 100 Room Air 01/16/17 21:29 100 01/16/17 21:06 37.1 108 20 121/72 98 Room Air Physical Exam GENERAL: Awake, alert, very uncomfortable appearing, in moderate distress HENT: Normocephalic, atraumatic. Oropharynx unremarkable. EYES: Normal conjunctiva. Sclera are icteric. NECK: Supple. No nuchal rigidity. FROM. No JVD. RESPIRATORY: Clear to auscultation. CARDIAC: Tachycardic rate, normal rhythm. Extremities warm and well perfused. Pulses equal. ABDOMEN: Soft, non-distended. Diffuse tenderness to palpation. No rebound or guarding. No masses. RECTAL: Deferred. MUSCULOSKELETAL: Chest examination reveals no tenderness. The back is symmetrical on inspection without obvious abnormality. There is no CVA tenderness to palpation. No joint edema. LOWER EXTREMITIES: Calves are equal size bilaterally and non-tender. No edema. No discoloration. NEURO: Normal sensorium. No sensory or motor deficits noted. SKIN: No rash or jaundice noted. Medical Decision & Procedures ER Provider Diagnostic Interpretation: X ray results as stated below per my interpretation and radiologist interpretation. Other radiology results as stated below per my review and radiologist interpretation ULTRASOUND RIGHT UPPER QUADRANT ABDOMEN CLINICAL HISTORY: Right upper quadrant abdominal pain. COMPARISON STUDY: Abdominal CT dated 01/14/2017. TECHNIQUE: Real-time, grayscale, and color flow sonography of the right upper quadrant of the abdomen was performed. Images are reviewed in the transverse and longitudinal planes. FINDINGS: Liver: The liver is normal in size and echotexture. There is no intrahepatic biliary ductal dilatation. The main portal vein is patent. Gallbladder: The gallbladder is distended and filled with sludge and stones. The gallbladder wall is thickened and hyperemic measuring up to 4 mm. There is a small volume of free fluid in the right upper quadrant. A sonographic Ruelas's sign is reportedly present. The common bile duct measures up to 0.9 cm in diameter. Pancreas: Not well visualized due to overlying bowel gas. Right kidney: Survey images of the right kidney demonstrate normal size and echotexture. There is no hydronephrosis. Ascites: A small volume of free fluid is seen in the right upper quadrant. IMPRESSION: Cholelithiasis and biliary sludge with sonographic evidence of acute cholecystitis. Surgical consultation is advised. Electronically signed by: Doug Cabrera M.D. 01/16/2017 10:39 PM Dictated Date/Time: 01/16/2017 10:37 PM Laboratory Results 01/16/17 21:16 Red Blood Count 4.97, Mean Corpuscular Volume 69.8, Mean Corpuscular Hemoglobin 24.9, Mean Corpuscular Hemoglobin Concent 35.7, Neutrophils (%) (Auto) 83.3, Lymphocytes (%) (Auto) 6.8, Monocytes (%) (Auto) 9.0, Eosinophils (%) (Auto) 0.4 , Basophils (%) (Auto) 0.1, Neutrophils # (Auto) 12.78, Lymphocytes # (Auto) 1.05, Monocytes # (Auto) 1.38, Eosinophils # (Auto) 0.06, Basophils # (Auto) 0.02 01/16/17 21:16 Test 01/16/17 21:16 White Blood Count 15.35 K/uL (4.8-10.8) Red Blood Count 4.97 M/uL (4.7-6.1) Hemoglobin 12.4 g/dL (14.0-18.0) Hematocrit 34.7 % (42-52) Mean Corpuscular Volume 69.8 fL (80-100) Mean Corpuscular Hemoglobin 24.9 pg (25-34) Mean Corpuscular Hemoglobin Concent 35.7 g/dl (32-36) Platelet Count 261 K/uL (130-400) Neutrophils (%) (Auto) 83.3 % Lymphocytes (%) (Auto) 6.8 % Monocytes (%) (Auto) 9.0 % Eosinophils (%) (Auto) 0.4 % Basophils (%) (Auto) 0.1 % Neutrophils # (Auto) 12.78 K/uL (1.4-6.5) Lymphocytes # (Auto) 1.05 K/uL (1.2-3.4) Monocytes # (Auto) 1.38 K/uL (0.11-0.59) Eosinophils # (Auto) 0.06 K/uL (0-0.5) Basophils # (Auto) 0.02 K/uL (0-0.2) RDW Standard Deviation 40.2 fL (36.4-46.3) RDW Coefficient of Variation 16.0 % (11.5-14.5) Immature Granulocyte % (Auto) 0.4 % Immature Granulocyte # (Auto) 0.06 K/uL (0.00-0.02) Polychromasia 1+ Poikilocytosis PRESENT Anisocytosis PRESENT Microcytosis PRESENT Macrocytosis PRESENT Ovalocytes 1+ Schistocytes OCCASIONAL Anion Gap 10.0 mmol/L (3-11) Est Creatinine Clear Calc Drug Dose 103.2 ml/min Estimated GFR () > 150.0 Estimated GFR (Non- 130.2 BUN/Creatinine Ratio 10.0 (10-20) Calcium Level 8.8 mg/dl (8.5-10.1) Total Bilirubin 14.7 mg/dl (0.2-1) Direct Bilirubin 9.4 mg/dl (0-0.2) Aspartate Amino Transf (AST/SGOT) 82 U/L (15-37) Alanine Aminotransferase (ALT/SGPT) 159 U/L (12-78) Alkaline Phosphatase 95 U/L (45-117) Total Protein 8.0 gm/dl (6.4-8.2) Albumin 4.5 gm/dl (3.4-5.0) Lipase 34656 U/L (73-393) Laboratory results reviewed by me Medications Administered Medications (Trade) Dose Ordered Sig/Enmanuel Route Start Time Stop Time Status Last Admin Dose Admin Sodium Chloride (Nss 1000ml) 2,000 ml @ 999 mls/hr Q2H1M STAT IV 01/16/17 21:17 01/16/17 23:17 DC 01/16/17 21:23 999 MLS/HR Fentanyl Citrate (Fentanyl Inj) 50 mcg Q15M PRN IV 01/16/17 22:00 01/30/17 21:59 01/17/17 01:08 50 MCG Ondansetron HCl (Zofran Inj) 4 mg NOW STAT IV 01/16/17 21:46 01/16/17 21:48 DC 01/16/17 21:53 4 MG Piperacillin Sod/ Tazobactam Sod 4.5 gm 4.5 gm NOW STAT IV 01/16/17 22:45 01/16/17 22:47 DC 01/16/17 22:54 4.5 GM Lactated Ringer's (Lr 1000ml) 1,000 ml @ 200 mls/hr Q5H STAT IV 01/16/17 23:01 01/17/17 04:00 01/16/17 23:21 200 MLS/HR ED Course 2116: The patient was evaluated in room B3. A complete history and physical exam was performed. Ordered Sodium Chloride 2000 ml @ 999 mls/hr IV 2146: Ordered Zofran 4 mg IV 2200: Ordered Fentanyl 50 mcg IV 2245: Zosyn Iv 4.5 gm IV 2248: I reassessed the patient at this time. He is doing better. 2251: At this time, I spoke with Dr. Ernst - General Surgery. We discussed the patient's case. He stated that I should speak with GI for a possible ERCP procedure. 2301: Lactated Ringer's 1000 ml @ mls/hr IV 2304: I spoke with Dr. Faith - GI, at this time. They recommended that the patient should be placed on NPO. We should watch his symptoms while giving him fluid and antibiotics and the symptoms should pass on their own. We will monitor him overnight. 2357: Upon reexamination, the patient was resting. I discussed the test results and treatment plan with him. The patient will be evaluated by Dr. Bundy - [facility], for further management. Medical Decision Triage Nursing notes reviewed. The patient's presentation and history were concerning for abdominal pain. Etiologies such as sickle crisis, organ infarction, biliary pathology, pancreatitis, appendicitis, diverticulitis, obstruction, inflammatory bowel disease, renal colic, PUD,mesenteric ischemia, aortic pathology, infections, genitourinary, UTI, perforated viscus, as well as others were entertained. The patient was evaluated. He was quite uncomfortable. He was hydrated with 2 L normal saline. He was given IV Zofran and IV fentanyl. He received multiple doses of IV fentanyl. The patient was jaundice. He had scleral icterus. The patient was mildly tachycardic. He was sent for ultrasound. Blood work revealed a leukocytosis and marked elevation of his LFTs. Ultrasound imaging was concerning for cholecystitis. The patient was given IV Zosyn. Consultation was made with general surgery, Dr. Ernst who recommended urgent GI consultation. Consultation was made with Dr. faith. He recommended lactated Ringer's, pain medication, and agreed with the antibiotic dosing. He asked that the patient admitted by internal medicine. If the patient is worsening he would like to be notified as he may need urgent ERCP. Consultation was made with Dr. René Bundy. He evaluated the patient in the Emergency Room. He did order an MRCP as well as additional treatment. The patient was admitted for further management. The chart was completed utilizing [employer] Speech voice recognition software. Grammatical errors, random word insertions, pronoun errors, and incomplete sentences are an occasional consequence of this system due to software limitations, ambient noise, and hardware issues. Any formal questions or concerns about the content, text, or information contained within the body of this dictation should be directly addressed to the physician for clarification. Consults Time Called: 2247 Consulting Physician: Dr. Ernst - General Surgery Returned Call: 2250 We discussed the patient's case. See ED course. Additional Consults: Time Called: 2300 Consulted Physician: Dr. Vianney WELLS Returned Call: 2303 Additional Comments: We discussed the patient's case. See ED course. Time Called: 235 Consulted Physician: Dr. Bundy - [facility] Returned Call: 235 Additional Comments: He will be evaluating the patient for further management. Impression Primary Impression: Cholecystitis Additional Impression: Pancreatitis Scribe Attestation The scribe's documentation has been prepared under my direction and personally reviewed by me in its entirety. I confirm that the note above accurately reflects all work, treatment, procedures, and medical decision making performed by me. Departure Information Dispostion Being Evaluated By Hospitalist [facility] ([facility] Patient Instructions My [facility] Problem Qualifiers Additional Impression: Pancreatitis Chronicity: acute Pancreatitis type: biliary Acute pancreatitis complication: unspecified Qualified Codes: K85.10 - Biliary acute pancreatitis without necrosis or infection
[2017-01-17 02:50] VITALS: BP 125/91; PULSE 102; TEMP 37; Ht 162.6 cm; Wt 48.5 kg
[2017-01-17 03:00] VITALS: BP 125/91; PULSE 102; TEMP 37; O2SAT 100
[2017-01-17] MEDS ORDERED: PANTOprazole INJ 40 MG in SYRINGE 0 ML IV STA (03:05)
[2017-01-17] MEDS ORDERED: VANCOMYCIN CONSULT ACTIVE PRN (03:15)
[2017-01-17] MEDS ORDERED: NSS + 20MEQ KCL 1000ML 1,000 ML IV SCH (03:15)
[2017-01-17] MEDS: PIPERACILL/TAZOBAC IV 3.375 GM in DEXTROSE 5% 100ML 100 ML IV SCH ×3 (03:50→19:53)
--- NOTE | 2017-01-17 04:11 | Pharmacy Progress Note ---
Pharmacy Antibiotic Consult Date of Service: Jan 17, 2017. Pharmacy Dosing Scope Pharmacy is consulted to initiate Vancomycin IV dosing therapy, order appropriate labs and adjust drug dose/frequency. Subjective The patient is a 21 year old male admitted on Jan 17, 2017 at 01:30. Objective Height (Feet): 5 Height (Inches): 4.00 Weight (Kilograms): 48.500 Lab Results (24hrs): Laboratory Tests Test 01/16/17 21:16 BUN/Creatinine Ratio 10.0 Blood Urea Nitrogen 8 mg/dl Creatinine 0.79 mg/dl White Blood Count 15.35 K/uL Red Blood Count 4.97 M/uL Hemoglobin 12.4 g/dL Hematocrit 34.7 % Mean Corpuscular Volume 69.8 fL Mean Corpuscular Hemoglobin 24.9 pg Mean Corpuscular Hemoglobin Concent 35.7 g/dl Platelet Count 261 K/uL Neutrophils (%) (Auto) 83.3 % Lymphocytes (%) (Auto) 6.8 % Monocytes (%) (Auto) 9.0 % Eosinophils (%) (Auto) 0.4 % Basophils (%) (Auto) 0.1 % Neutrophils # (Auto) 12.78 K/uL Lymphocytes # (Auto) 1.05 K/uL Monocytes # (Auto) 1.38 K/uL Eosinophils # (Auto) 0.06 K/uL Basophils # (Auto) 0.02 K/uL Recent Pertinent Medications * Patient is also receiving Zosyn 3.375mg IV every hours Assessment & Plan * Loading dose: 1200 mg IV (~ 25mg/kg) X 1 dose then 600mg IV (~12.3mg/kg) every 8 hours. * Goal trough level estimate: between 16-20 mcg/mL. * Trough level is ordered for 0330 on 01/18/17 just prior to the 4th dose. Pharmacy will continue to follow and will adjust dose/frequency as necessary. Thank you
--- NOTE | 2017-01-17 05:01 | History and Physical ---
History & Physical Date & Time of Service: Jan 17, 2017 at 04:50 Chief Complaint: Acute Cholecystitis, Acute Gallstone Pancreatitis Primary Care Physician: [facility] History of Present Illness Source: patient The patient is a 21-year-old male who was admitted and discharged on January 14 due to severe abdominal pain with unclear etiology at that time. The pain was initially thought possibly secondary to sickle cell, but determined to not likely be so. When he was discharged home that day he felt improved, however, last night he began to develop generalized abdominal pain again, this time radiated into his back, accompanied by nausea and vomiting. His urine has become more dark has not been urinating as frequently. He has been taking oxycodone was not helping the pain. Past Medical/Surgical History Medical Problems: (1) Sickle cell anemia Status: Chronic Family History Diabetes mellitus FH: heart disease Hypertension Kidney disease Social History Smoking Status: Light Tobacco Smoker Smokeless Tobacco Use: No Alcohol Use: none Marital Status: single Housing status: lives with friends Occupational Status: [employer] Multi-Drug Resistant Organisms History of MDRO: No Allergies Coded Allergies: No Known Allergies (Unverified , 11/01/16) Home Medications Scheduled Hydroxyurea (Hydrea Cap), 500 MG PO DAILY Scheduled PRN Ondansetron Hcl (Zofran), 4 MG PO Q6H PRN for Nausea Oxycodone/Acetaminophen 10MG/325MG (Percocet 10MG/325MG), 1 TAB PO DIRECTED PRN for Pain Review of Systems The patient denies chest pain, palpitations, shortness of breath, cough, lower extremity swelling, vision change, hearing change, sore throat, blood in urine or stool, dysuria, urinary frequency or urgency, lightheadedness, dizziness, headache, memory loss, rash, abnormal bruising or bleeding, imbalance, focal or generalized weakness, numbness or tingling in arms or legs, arthralgias or myalgias, neck pain, night sweats, or allergy symptoms. The review of systems is otherwise negative other than for that already noted above, and at least 10 systems have been reviewed. Physical Exam Vital Signs Date Time Temp Pulse Resp B/P Pulse Ox O2 Delivery O2 Flow Rate FiO2 01/17/17 03:00 37.0 102 16 125/91 100 Room Air 01/17/17 02:50 37.0 102 16 125/91 Room Air 01/17/17 01:56 37.1 118 16 117/68 95 01/17/17 01:34 118 16 95 01/17/17 01:30 117/68 01/17/17 01:04 102 19 99 01/17/17 01:00 120/74 01/17/17 00:34 72 17 97 01/17/17 00:30 109/67 01/17/17 00:24 72 20 109/61 96 Room Air 01/17/17 00:04 73 22 99 01/17/17 00:00 109/61 01/16/17 23:37 81 20 110/68 97 Room Air 01/16/17 23:34 86 20 98 01/16/17 23:30 110/68 01/16/17 23:04 93 20 97 01/16/17 23:00 117/66 01/16/17 22:55 93 20 120/81 96 Room Air 01/16/17 22:51 120/81 01/16/17 22:04 72 18 100 01/16/17 22:00 131/90 01/16/17 21:57 77 20 127/87 97 Nasal Cannula 2.0 01/16/17 21:56 97 Nasal Cannula 2.0 01/16/17 21:56 86 Room Air 01/16/17 21:34 94 23 100 01/16/17 21:30 127/87 01/16/17 21:29 87 20 127/87 100 Room Air 01/16/17 21:29 100 01/16/17 21:06 37.1 108 20 121/72 98 Room Air The patient is awake, alert and oriented 3, normocephalic and atraumatic, sometimes rolling back and forth on the bed, in moderate acute distress secondary to abdominal pain as the pain medication wears off. HEENT--PERRL, EOMI, mucous membranes and oropharynx dry. Neck--supple, no JVD or bruits, thyroid normal, trachea midline, no adenopathy. Heart--normal S1 and S2, no extra beats, no murmurs, rubs or gallops. Lungs--clear bilaterally but diminished, no respiratory distress, no accessory muscle use. Abdomen--decreased bowel sounds, soft, mildly distended, generalized discomfort. Extremities--no cyanosis, clubbing or edema. There are good distal pulses b/l. Dermatologic--normal skin turgor, normal color, warm and dry, no abnormal lymph nodes, no rash. Neurologic--cranial nerves II through XII grossly intact. Rheumatologic--normal range of motion, nontender, muscles and joints. Psychiatric--in pain. Diagnostics Laboratory Results Results Past 24 Hours Test 01/16/17 21:16 Range/Units White Blood Count 15.35 4.8-10.8 K/uL Red Blood Count 4.97 4.7-6.1 M/uL Hemoglobin 12.4 14.0-18.0 g/dL Hematocrit 34.7 42-52 % Mean Corpuscular Volume 69.8 80-100 fL Mean Corpuscular Hemoglobin 24.9 25-34 pg Mean Corpuscular Hemoglobin Concent 35.7 32-36 g/dl Platelet Count 261 130-400 K/uL Neutrophils (%) (Auto) 83.3 % Lymphocytes (%) (Auto) 6.8 % Monocytes (%) (Auto) 9.0 % Eosinophils (%) (Auto) 0.4 % Basophils (%) (Auto) 0.1 % Neutrophils # (Auto) 12.78 1.4-6.5 K/uL Lymphocytes # (Auto) 1.05 1.2-3.4 K/uL Monocytes # (Auto) 1.38 0.11-0.59 K/uL Eosinophils # (Auto) 0.06 0-0.5 K/uL Basophils # (Auto) 0.02 0-0.2 K/uL RDW Standard Deviation 40.2 36.4-46.3 fL RDW Coefficient of Variation 16.0 11.5-14.5 % Immature Granulocyte % (Auto) 0.4 % Immature Granulocyte # (Auto) 0.06 0.00-0.02 K/uL Polychromasia 1+ Poikilocytosis PRESENT Anisocytosis PRESENT Microcytosis PRESENT Macrocytosis PRESENT Ovalocytes 1+ Schistocytes OCCASIONAL Sodium Level 135 136-145 mmol/L Potassium Level 3.5 3.5-5.1 mmol/L Chloride Level 97 98-107 mmol/L Carbon Dioxide Level 28 21-32 mmol/L Anion Gap 10.0 3-11 mmol/L Blood Urea Nitrogen 8 7-18 mg/dl Creatinine 0.79 0.60-1.40 mg/dl Est Creatinine Clear Calc Drug Dose 103.2 ml/min Estimated GFR () > 150.0 Estimated GFR (Non- 130.2 BUN/Creatinine Ratio 10.0 10-20 Random Glucose 98 70-99 mg/dl Calcium Level 8.8 8.5-10.1 mg/dl Total Bilirubin 14.7 0.2-1 mg/dl Direct Bilirubin 9.4 0-0.2 mg/dl Aspartate Amino Transf (AST/SGOT) 82 15-37 U/L Alanine Aminotransferase (ALT/SGPT) 159 12-78 U/L Alkaline Phosphatase 95 45-117 U/L Total Protein 8.0 6.4-8.2 gm/dl Albumin 4.5 3.4-5.0 gm/dl Lipase 48883 73-393 U/L Diagnostic Radiology Patient Name: KATHERIN PINZON Unit Number: [id number] Dictated: 01/16/172236 Transcribed: 01/16/172236 EV Printed Date/Time: [~ rep prt dt]/[~ rep prt tm] [~ rep ct labl] - [~ rep ct ivnm] [facility] [place] [address] Dictated: 01/16/172236 Transcribed: 01/16/172236 EV Printed Date/Time: [~ rep prt dt]/[~ rep prt tm] [~ rep ct labl] - [~ rep ct ivnm] [~ rep ct add3]] ULTRASOUND RIGHT UPPER QUADRANT ABDOMEN CLINICAL HISTORY: Right upper quadrant abdominal pain. COMPARISON STUDY: Abdominal CT dated 01/14/2017. TECHNIQUE: Real-time, grayscale, and color flow sonography of the right upper quadrant of the abdomen was performed. Images are reviewed in the transverse and longitudinal planes. FINDINGS: Liver: The liver is normal in size and echotexture. There is no intrahepatic biliary ductal dilatation. The main portal vein is patent. Gallbladder: The gallbladder is distended and filled with sludge and stones. The gallbladder wall is thickened and hyperemic measuring up to 4 mm. There is a small volume of free fluid in the right upper quadrant. A sonographic Ruelas's sign is reportedly present. The common bile duct measures up to 0.9 cm in diameter. Pancreas: Not well visualized due to overlying bowel gas. Right kidney: Survey images of the right kidney demonstrate normal size and echotexture. There is no hydronephrosis. Ascites: A small volume of free fluid is seen in the right upper quadrant. IMPRESSION: Cholelithiasis and biliary sludge with sonographic evidence of acute cholecystitis. Surgical consultation is advised. Electronically signed by: Doug Cabrera M.D. 01/16/2017 10:39 PM Dictated Date/Time: 01/16/2017 10:37 PM The status of this report is Signed. Draft = Not yet reviewed or approved by Radiologist. Signed = Reviewed and approved by Radiologist. <AttendingPhy></AttendingPhy> <FamilyPhy>[facility]</FamilyPhy> <PrimaryPhy>[facility]</PrimaryPhy> <UnitNumber>[id number]</ UnitNumber> <VisitNumber>[id number]</VisitNumber> <PatientName>YUNG PINZON</PatientName> <DateOfBirth>1995</DateOfBirth> <Location>[facility]</ Location> <ServiceDate>01/16/17</ServiceDate> <MNE>ESINDI</MNE> <OrderingPhy> Watson Lazaro MD</OrderingPhy> <OrderingPhyMNE>f rep ord dr hill</ OrderingPhyMNE> <DictatingPhyMNE>f rep dict dr hill</DictatingPhyMNE> <CCListMNE> f rep ct sergio</CCListMNE> <AdmittingPhyMNE>f pt admit dr hill</AdmittingPhyMNE> < AttendingPhyMNE>f pt attend dr hill</AttendingPhyMNE> <ConsultingPhyMNE>f pt consult dr hill</ConsultingPhyMNE> <FamilyPhyMNE>f pt fam dr hill</FamilyPhyMNE> <OtherPhyMNE>f pt other dr hill</OtherPhyMNE> < PrimaryPhyMNE>f pt prim care dr hill</PrimaryPhyMNE> <ReferringPhyMNE>f pt referring dr hill</ReferringPhyMNE> Impression Assessment and Plan Acute cholecystitis/gallstone pancreatitis--patient will be admitted to the medical surgical floor and nothing by mouth status. Start Zosyn 3.375 g IV every 6 hours, Zofran 4 mg IV every 6 hours when necessary, Protonix 40 mg IV daily, Phenergan 25 mg IV every 6 hours when necessary, normal saline with potassium chloride 20 mEq at 25 ML's per hour, and morphine sulfate 2-4 mg IV every 2 hours when necessary Follow serial laboratories. The emergency department as consulted surgery, who asked the patient be seen by gastroenterology. GI consult suggested symptomatic treatment, and the patient' s pain was not controlled, would come in for decompression. We'll order an MRCP for further assessment. Sickle cell disease--has been seen by fire apparatus engineer Dr. Benitez at last admission , but was not thought to be in crisis at that time. Level of Care Med/Surg Advanced Directives Existing Advance Directive: No Existing Living Will: No Existing Power of Buttonhole Maker Hand: No Resuscitation Status FULL RESUSCITATION VTE Prophylaxis VTE Risk Assessment Done? Y/N: Yes Risk Level: Low Given or contraindicated: SCD's Social Service Consult None Apply
[2017-01-17] MEDS: MoRPHine SULFATE 2 MG/ML CARP IV PRN ×5 (05:02→14:30)
[2017-01-17] MEDS: DiphenhydrAMINE HCL 50 MG/ML VIAL IV PRN (05:41)
[2017-01-17 06:49] VITALS: BP 123/64; PULSE 92; TEMP 37.3; O2SAT 95
[2017-01-17] MEDS ORDERED: PIPERACILL/TAZOBAC CONSULT ACTIVE PRN (09:30)
[2017-01-17] MEDS: LACTATED RINGER'S 1000ML 1,000 ML IV SCH ×4 (10:00→21:24)
--- NOTE | 2017-01-17 10:05 | DIAGNOSTIC IMAGING REPORT ---
MRCP CLINICAL HISTORY: Acute cholecystitis. Abdominal pain. COMPARISON STUDY: CT of the abdomen and pelvis January 14, 2017 and right upper quadrant ultrasound January 16, 2017. TECHNIQUE: Utilizing a 1.5 Michelle magnet and heavily T2 weighted sequences, multiplanar, multi echo imaging of the abdomen was performed without IV contrast. FINDINGS: The splenic infarct is similar appearance to CT of January 14, 2017. No biliary ductal dilatation is identified. No common bile duct calculi are identified although sensitivity is diminished due to motion artifact. There has been interval development of a small to moderate amount of fluid within the abdomen and pelvis since prior abdominal CT. Peripancreatic fluid is noted. Sludge and stones are noted within the gallbladder. There is mild gallbladder wall thickening. Trace bilateral pleural effusion are noted. Unenhanced images of the liver, adrenal glands and kidneys are normal. IMPRESSION: 1. Interval development of abdominal and pelvic ascites with peripancreatic infiltration. The findings favor acute pancreatitis. Discussed with Dr. Valle at time of dictation. 2. No biliary ductal dilatation. No common bile duct calculi identified although sensitivity diminished due to motion artifact. 3. Cholelithiasis and mild gallbladder wall thickening which may reflect acute cholecystitis. 4. No change in appearance of the splenic infarct. Electronically signed by: Troy Cash M.D. 01/17/2017 10:04 AM Dictated Date/Time: 01/17/2017 8:33 AM
[2017-01-17 10:18] LABS: BASO % 0.1 %; BASO ABS # 0.01 K/uL (0-0.2); EOS % 0.3 %; HEMATOCRIT 31.8 % (42-52); IG% 0.4 %; LYMPH % 8.3 %; LYMPH ABS # 1.17 K/uL (1.2-3.4); MEAN CORPUSCULAR HEMOGLOBIN 25.4 pg (25-34); NEUT % 81.9 %; PLATELET COUNT 222 K/uL (130-400); RED BLOOD COUNT 4.61 M/uL (4.7-6.1); WHITE BLOOD COUNT 14.04 K/uL (4.8-10.8)
[2017-01-17 10:28] LABS: MEAN CORPUSCULAR HGB CONC 36.8 g/dl (32-36)
[2017-01-17] MEDS: PANTOprazole INJ 40 MG in SYRINGE 0 ML IV SCH (10:41)
[2017-01-17 10:43] LABS: ALB/GLOB RATIO 1.1 (0.9-2); ALKALINE PHOSPHATASE 85 U/L (45-117); ALT/SGPT 110 U/L (12-78); AST/SGOT 51 U/L (15-37); BLOOD UREA NITROGEN 5 mg/dl (7-18); CALCIUM 8.2 mg/dl (8.5-10.1); CARBON DIOXIDE 27 mmol/L (21-32); CHLORIDE 100 mmol/L (98-107); COMPLETE YES; CREATININE 0.66 mg/dl (0.60-1.40); GLUCOSE 79 mg/dl (70-99); MICROCYTOSIS PRESENT; POLYCHROMASIA 1+; POTASSIUM 3.5 mmol/L (3.5-5.1); SODIUM 137 mmol/L (136-145); TARGET CELLS 1+
[2017-01-17] MEDS ORDERED: VANCOMYCIN INJ 600 MG in SODIUM CHLORIDE 0.9% 250ML 250 ML IV SCH (12:00)
--- NOTE | 2017-01-17 12:13 | Gastrointestinal Consultation ---
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 He was admitted and d/c'd two days prior for similar but less significant abdominal pain. The pain he is experiencing now is the most severe, located in the epigastrium, and radiates across his abdomen. Does have nausea without vomiting. No diarrhea, no recent or historical EtoH use. On presentation here he was noted to have dramatically elevated Bili, Lipase, and WBC count all likely due to gallstone pancreatitis. Tachycardic without hypotension but in significant pain. His gallbladder on US is thickened and inflamed. CBD was measured to 9 mm, however, MRCP did not show biliary ductal dilation and no definitive choledocholithiasis. WBC count, bilirubin have declined today. VS are improved and pain is being controlled. No hx of this in past. He does have sickle cell disease, prior admission was thought to be a sickle crisis, but was not transfused and was discharge with a bilirubin of 3.3. AST/ALT are elevated but AP is normalized. 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: [employer] student Allergies Coded Allergies: No Known Allergies (Unverified , 11/01/16) Current Medications Home Meds and Scripts Medications Dose Route/Sig Max Daily Dose Days Date Category Zofran (Ondansetron HCl) 4 Mg Tab 4 Mg PO Q6H PRN 01/16/17 Reported Percocet 10MG/325MG (Oxycodone/Acetaminophen) Tab 1 Tab PO DIRECTED PRN 10 01/14/17 Rx Hydrea Cap (Hydroxyurea) 500 Mg Cap 500 Mg PO DAILY 30 01/14/17 Rx Review of Systems Constitutional: + see HPI Eyes: No diplopia, No discharge, No eye pain, No problem reported, No redness, No see HPI, No worsening of vision Respiratory: No cough, No dyspnea at rest, No dyspnea on exertion, No hemoptysis, No problem reported, No see HPI, No shortness of breath, No sputum, No wheezing Cardiac: No PND, No chest pain, No claudication, No edema, No orthopnea, No palpitations, No problem reported, No see HPI Abdomen: + see HPI Musculoskeletal: No calf pain, No joint pain, No muscle pain, No problem reported, No see HPI, No swelling Physical Exam Date Time Temp Pulse Resp B/P Pulse Ox O2 Delivery O2 Flow Rate FiO2 01/17/17 08:00 Room Air 01/17/17 06:49 37.3 92 19 123/64 95 Room Air 01/17/17 03:00 37.0 102 16 125/91 100 Room Air 01/17/17 02:50 37.0 102 16 125/91 Room Air 01/17/17 02:50 Room Air 01/17/17 01:56 37.1 118 16 117/68 95 01/17/17 01:34 118 16 95 01/17/17 01:30 117/68 01/17/17 01:04 102 19 99 01/17/17 01:00 120/74 01/17/17 00:34 72 17 97 01/17/17 00:30 109/67 01/17/17 00:24 72 20 109/61 96 Room Air 01/17/17 00:04 73 22 99 01/17/17 00:00 109/61 01/16/17 23:37 81 20 110/68 97 Room Air 01/16/17 23:34 86 20 98 01/16/17 23:30 110/68 01/16/17 23:04 93 20 97 01/16/17 23:00 117/66 01/16/17 22:55 93 20 120/81 96 Room Air 01/16/17 22:51 120/81 01/16/17 22:04 72 18 100 01/16/17 22:00 131/90 01/16/17 21:57 77 20 127/87 97 Nasal Cannula 2.0 01/16/17 21:56 97 Nasal Cannula 2.0 01/16/17 21:56 86 Room Air 01/16/17 21:34 94 23 100 01/16/17 21:30 127/87 01/16/17 21:29 87 20 127/87 100 Room Air 01/16/17 21:29 100 01/16/17 21:06 37.1 108 20 121/72 98 Room Air General Appearance: + pertinent finding (ill appearing, falling asleep during interview) Eyes: + pertinent finding (yellow eyes) Respiratory/Chest: chest non-tender, lungs clear, normal breath sounds Cardiovascular: regular rate, rhythm, no edema Abdomen: + pertinent finding (hypoactive, voluntary guarding, no rebound. 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 No biliary ductal dilatation is identified. No common bile duct calculi are identified although sensitivity is diminished due to motion artifact. There has been interval development of a small to moderate amount of fluid within the abdomen and pelvis since prior abdominal CT. Peripancreatic fluid is noted. Sludge and stones are noted within the gallbladder. There is mild gallbladder wall thickening. Trace bilateral pleural effusion are noted. Unenhanced images of the liver, adrenal glands and kidneys are normal. IMPRESSION: 1. Interval development of abdominal and pelvic ascites with peripancreatic infiltration. The findings favor acute pancreatitis. Discussed with Dr. Valle at time of dictation. 2. No biliary ductal dilatation. No common bile duct calculi identified although sensitivity diminished due to motion artifact. 3. Cholelithiasis and mild gallbladder wall thickening which may reflect acute cholecystitis. 4. No change in appearance of the splenic infarct. RUQ US Liver: The liver is normal in size and echotexture. There is no intrahepatic biliary ductal dilatation. The main portal vein is patent. Gallbladder: The gallbladder is distended and filled with sludge and stones. The gallbladder wall is thickened and hyperemic measuring up to 4 mm. There is a small volume of free fluid in the right upper quadrant. A sonographic Ruelas's sign is reportedly present. The common bile duct measures up to 0.9 cm in diameter. Pancreas: Not well visualized due to overlying bowel gas. Right kidney: Survey images of the right kidney demonstrate normal size and echotexture. There is no hydronephrosis. Ascites: A small volume of free fluid is seen in the right upper quadrant. IMPRESSION: Cholelithiasis and biliary sludge with sonographic evidence of acute cholecystitis. Surgical consultation is advised. Laboratory Results Last 24 Hours Test 01/16/17 21:16 01/17/17 10:09 White Blood Count 15.35 K/uL 14.04 K/uL Red Blood Count 4.97 M/uL 4.61 M/uL Hemoglobin 12.4 g/dL 11.7 g/dL Hematocrit 34.7 % 31.8 % Mean Corpuscular Volume 69.8 fL 69.0 fL Mean Corpuscular Hemoglobin 24.9 pg 25.4 pg Mean Corpuscular Hemoglobin Concent 35.7 g/dl 36.8 g/dl Platelet Count 261 K/uL 222 K/uL Neutrophils (%) (Auto) 83.3 % 81.9 % Lymphocytes (%) (Auto) 6.8 % 8.3 % Monocytes (%) (Auto) 9.0 % 9.0 % Eosinophils (%) (Auto) 0.4 % 0.3 % Basophils (%) (Auto) 0.1 % 0.1 % Neutrophils # (Auto) 12.78 K/uL 11.51 K/uL Lymphocytes # (Auto) 1.05 K/uL 1.17 K/uL Monocytes # (Auto) 1.38 K/uL 1.26 K/uL Eosinophils # (Auto) 0.06 K/uL 0.04 K/uL Basophils # (Auto) 0.02 K/uL 0.01 K/uL RDW Standard Deviation 40.2 fL 39.0 fL RDW Coefficient of Variation 16.0 % 15.8 % Immature Granulocyte % (Auto) 0.4 % 0.4 % Immature Granulocyte # (Auto) 0.06 K/uL 0.05 K/uL Polychromasia 1+ 1+ Poikilocytosis PRESENT Anisocytosis PRESENT Microcytosis PRESENT PRESENT Macrocytosis PRESENT Ovalocytes 1+ Schistocytes OCCASIONAL Sodium Level 135 mmol/L 137 mmol/L Potassium Level 3.5 mmol/L 3.5 mmol/L Chloride Level 97 mmol/L 100 mmol/L Carbon Dioxide Level 28 mmol/L 27 mmol/L Anion Gap 10.0 mmol/L 10.0 mmol/L Blood Urea Nitrogen 8 mg/dl 5 mg/dl Creatinine 0.79 mg/dl 0.66 mg/dl Est Creatinine Clear Calc Drug Dose 103.2 ml/min 123.5 ml/min Estimated GFR () > 150.0 > 150.0 Estimated GFR (Non- 130.2 140.2 BUN/Creatinine Ratio 10.0 7.0 Random Glucose 98 mg/dl 79 mg/dl Calcium Level 8.8 mg/dl 8.2 mg/dl Total Bilirubin 14.7 mg/dl 9.9 mg/dl Direct Bilirubin 9.4 mg/dl 5.1 mg/dl Aspartate Amino Transf (AST/SGOT) 82 U/L 51 U/L Alanine Aminotransferase (ALT/SGPT) 159 U/L 110 U/L Alkaline Phosphatase 95 U/L 85 U/L Total Protein 8.0 gm/dl 7.0 gm/dl Albumin 4.5 gm/dl 3.7 gm/dl Lipase 79932 U/L Target Cells 1+ Globulin 3.3 gm/dl Albumin/Globulin Ratio 1.1 Impression Patient is a 21 year old male with sickle cell disease with moderately severe gallstone pancreatitis. Plan Does have a WBC count and elevated bilirubin, but normal alkaline phosphatase. At least some of his bilirubin can be explained from sickle cell and cholecystitis. With his severity of pancreatitis, normal AP, lack of fever, no obstruction from MRCP, and no signs of hypotension, I discussed case with one of our ERCP MD's who suggested continued observation. If has fever, hypotension , then acute biliary decompression can be pursued, however, may worsen pancreatitis and should be proceeded with caution. He does not have Charot's Triad or Reynald's Pentad. BISOP score is 2, meaning less than 2% chance of mortality. The offending stone may have passed given labs and lack of biliary ductal dilation. Recs 1. IVF to continue with LR at 250 cc/hr. If has hypoxia can be turned down. Would continue for at least another 24 hrs. 2. Pain Control 3. Wean Abx to Zosyn only 4. Blood Cx's x 2 5. Follow daily labs 6. If any clinical signs of decompensation, such as hypotension, fevers, or chills, please call GI. If occurs consider repeat CT to exclude necrosis, pancreatic fluid collections. 7. Call with any questions 8. At the minimum prior to D/C should have cholecystectomy eval and intraoperative IOC.
[2017-01-17] MEDS ORDERED: NURSING VERBAL MED ORDER ONE (12:45)
[2017-01-17 15:22] VITALS: BP 116/70; PULSE 90; TEMP 37.2; O2SAT 96
[2017-01-17] MEDS ORDERED: HYDROmorphone INJ 1 MG/ML SYR IV PRN (17:00)
[2017-01-17] MEDS ORDERED: HYDROmorphone INJ 2 MG/ML SYR/VIAL IV PRN ×2 (17:00→18:00)
--- NOTE | 2017-01-17 17:00 | Progress Note ---
Progress Note Date of Service Jan 17, 2017. Progress Note Patient admitted with gallstone pancreatitis. With bili improving today suspect passed stone. Patient asked that Dr. Benitez follow to make sure sickle cell controlled - I will consult. Patient reports that Morphine tends to make him more nauseous. 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 GI directing management which is much appreciated. Patient is concerned about his schooling. 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 He reports that it is competitive and he will be missing school and has missed. I will ask social service if (with permission) we could make call on patients behalf to his advisor essentially to confirm that severity of the patients illness.
[2017-01-17] MEDS ORDERED: HYDROmorphone INJ 0.5 MG/0.5 ML SYR IV PRN (18:00)
--- NOTE | 2017-01-17 19:02 | Oncology Consultation ---
Oncology/Heme Consultation Date of Consultation: Jan 17, 2017. Attending Physician: René Bundy M.D. Reason for Consultation: History of hemoglobin S with hereditary persistent hemoglobin History of Present Illness Mr. 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 As his chart reflects he was just hospitalized a few days ago with abdominal pain without nausea. At that time his chemistries were such that his bilirubin although 3.3 was in the range of his usual bilirubin. Amylase and lipase were both normal. His abdominal pain subsided after hydration and he was discharged. He now returns with continued pain primarily in the right upper quadrant and back. Now his bilirubin is quite high primarily direct bilirubin. SGOT and SGPT are elevated but alkaline phosphatase is normal. CBC is acceptable. Lipase and MRCP findings are all consistent with pancreatitis. I do suspect that he has had a gallstone pancreatitis. A few months ago he had presented with infarction of his spleen that actually on the last CT scan done very recently there was demonstration of decreased splenic infarct with what appeared to be new or reformed splenic parenchyma. This very at that hemoglobin S tends to have a rather benign or less critical clinical issues because of the persistent hemoglobin. However in spite of adequate of course infarcts like splenic infarcts have been recorded and they do have evidence of hemolysis and subsequent problems like: 58. His brother who I believe most likely has a same issue is status post cholecystectomy. Mr. Sudha Dubon can only recall one other incidence of what sounds like a sickle crisis when he was very young. At that time he had a bony event and again his hemoglobinopathy hasn't been an issue until the recent splenic infarct. He denies any fever or chills. At our last consultation just a few days ago he inquired about taking hydroxyurea. I warned him at that time about beginning hydroxyurea because I wasn't sure where the abdominal pain was going to go as far as whether it was going to go away or develop into something else such as where he is now with possible cholecystitis. Nevertheless he wanted to begin a small dose and a prescription was given to him for 500 mg of hydroxyurea day but he has not taken any at this point. 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 Allergies Coded Allergies: No Known Allergies (Unverified , 11/01/16) Home Medications Scheduled Hydroxyurea (Hydrea Cap), 500 MG PO DAILY Scheduled PRN Ondansetron Hcl (Zofran), 4 MG PO Q6H PRN for Nausea Oxycodone/Acetaminophen 10MG/325MG (Percocet 10MG/325MG), 1 TAB PO DIRECTED PRN for Pain Current Inpatient Medications Current Inpatient Medications Medications (Trade) Dose Ordered Sig/Enmanuel Route Start Time Stop Time Status Last Admin Dose Admin Piperacillin Sod/ Tazobactam Sod/ Dextrose (Zosyn Iv/D5 100ml) 115 ml @ 28 mls/hr Q8H IV 01/17/17 04:00 01/27/17 03:59 01/17/17 11:39 28 MLS/HR Ondansetron HCl 4 mg 4 mg Q6H PRN IV 01/17/17 01:15 02/16/17 01:14 Pantoprazole Sodium 40 mg/ Syringe 10 ml @ 5 mls/min DAILY@11 IV 01/17/17 11:00 02/16/17 10:59 01/17/17 10:41 5 MLS/MIN Promethazine HCl/ Sodium Chloride (Phenergan Inj/ Nss 50ml) 51 ml @ 204 mls/hr Q6H PRN IV 01/17/17 01:15 02/16/17 01:14 Diphenhydramine HCl (Benadryl Inj) 50 mg Q6H PRN IV 01/17/17 01:30 02/16/17 01:29 01/17/17 05:41 50 MG Piperacillin Sod/ Tazobactam Sod 1 ea 1 ea UD PRN N/A 01/17/17 09:30 02/16/17 09:29 Lactated Ringer's (Lr 1000ml) 1,000 ml @ 250 mls/hr Q4H IV 01/17/17 10:00 02/16/17 09:59 01/17/17 18:33 250 MLS/HR Hydromorphone HCl (Dilaudid Inj) 0.5 mg Q2HWA PRN IV 01/17/17 18:00 01/31/17 17:59 01/17/17 17:17 0.5 MG Hydromorphone HCl (Dilaudid Inj) 1 mg Q2HWA PRN IV 01/17/17 18:00 01/31/17 17:59 Review of Systems Constitutional: Negative for weight loss, night sweats, or fever Eyes: Negative for event change of vision ENT: Negative for epistaxis, nasal discharge, sore throat, or deafness Cardiovascular: Negative for chest pain, palpitations, dizziness, diaphoresis Respiratory: Negative for new shortness of breath,hemoptysis, or purulent cough Gastrointestinal: Negative for diarrhea, hematemesis, melena, plus nausea or vomiting Integumentary (skin): Negative for rash Genitourinary: Negative for urinary frequency, hematuria, or dysuria Neurological: Negative for weakness, seizure activity, headache, or dizziness Lymphatic/Hematologic: Negative for petechiae, bleeding or new adenopathy Musculoskeletal: Negative for new joint or back pain Allergic/Immunologic: Negative for unusual rash or pruritis. Physical Exam Date Time Temp Pulse Resp B/P Pulse Ox O2 Delivery O2 Flow Rate FiO2 01/17/17 15:22 37.2 90 16 116/70 96 Room Air 01/17/17 08:00 Room Air 01/17/17 06:49 37.3 92 19 123/64 95 Room Air 01/17/17 03:00 37.0 102 16 125/91 100 Room Air 01/17/17 02:50 37.0 102 16 125/91 Room Air 01/17/17 02:50 Room Air 01/17/17 01:56 37.1 118 16 117/68 95 01/17/17 01:34 118 16 95 01/17/17 01:30 117/68 01/17/17 01:04 102 19 99 01/17/17 01:00 120/74 01/17/17 00:34 72 17 97 01/17/17 00:30 109/67 01/17/17 00:24 72 20 109/61 96 Room Air 01/17/17 00:04 73 22 99 01/17/17 00:00 109/61 01/16/17 23:37 81 20 110/68 97 Room Air 01/16/17 23:34 86 20 98 01/16/17 23:30 110/68 01/16/17 23:04 93 20 97 01/16/17 23:00 117/66 01/16/17 22:55 93 20 120/81 96 Room Air 01/16/17 22:51 120/81 01/16/17 22:04 72 18 100 01/16/17 22:00 131/90 01/16/17 21:57 77 20 127/87 97 Nasal Cannula 2.0 01/16/17 21:56 97 Nasal Cannula 2.0 01/16/17 21:56 86 Room Air 01/16/17 21:34 94 23 100 01/16/17 21:30 127/87 01/16/17 21:29 87 20 127/87 100 Room Air 01/16/17 21:29 100 01/16/17 21:06 37.1 108 20 121/72 98 Room Air Constitutional: vitals are stable. Thin pleasant young man Eyes: Eyes are RORY EOMI without conjuctival erythema positive for scleral icterus ENT: External examination was negative for masses. Neck: Negative for masses or palpable thyromegaly Respiratory: Lung sounds were generally clear bilaterally Cardiovascular: Heart was RRR without significant murmur, gallops aoe rubs Gastrointestinal: No palpable hepatic or splenomegaly. The abdomen was mildly tender in the right upper quadrant or particular bowel sounds are decreased Lymphatic system: there was no palpable peripheral lymphadenopathy Musculoskeletal System: The musculoskeletal system seemed concordant with age. Skin: The skin was negative for unusual rash Neurologic exam: The exam was negative for any focal findings. Deep tendon reflexes were equal and symmetrical. Psychiatric exam: Was essentially negative with normal mood and effect. Extremities: Negative for edema erythema Laboratory Results Last 24 Hours Test 01/16/17 21:16 01/17/17 10:09 White Blood Count 15.35 K/uL 14.04 K/uL Red Blood Count 4.97 M/uL 4.61 M/uL Hemoglobin 12.4 g/dL 11.7 g/dL Hematocrit 34.7 % 31.8 % Mean Corpuscular Volume 69.8 fL 69.0 fL Mean Corpuscular Hemoglobin 24.9 pg 25.4 pg Mean Corpuscular Hemoglobin Concent 35.7 g/dl 36.8 g/dl Platelet Count 261 K/uL 222 K/uL Neutrophils (%) (Auto) 83.3 % 81.9 % Lymphocytes (%) (Auto) 6.8 % 8.3 % Monocytes (%) (Auto) 9.0 % 9.0 % Eosinophils (%) (Auto) 0.4 % 0.3 % Basophils (%) (Auto) 0.1 % 0.1 % Neutrophils # (Auto) 12.78 K/uL 11.51 K/uL Lymphocytes # (Auto) 1.05 K/uL 1.17 K/uL Monocytes # (Auto) 1.38 K/uL 1.26 K/uL Eosinophils # (Auto) 0.06 K/uL 0.04 K/uL Basophils # (Auto) 0.02 K/uL 0.01 K/uL RDW Standard Deviation 40.2 fL 39.0 fL RDW Coefficient of Variation 16.0 % 15.8 % Immature Granulocyte % (Auto) 0.4 % 0.4 % Immature Granulocyte # (Auto) 0.06 K/uL 0.05 K/uL Polychromasia 1+ 1+ Poikilocytosis PRESENT Anisocytosis PRESENT Microcytosis PRESENT PRESENT Macrocytosis PRESENT Ovalocytes 1+ Schistocytes OCCASIONAL Sodium Level 135 mmol/L 137 mmol/L Potassium Level 3.5 mmol/L 3.5 mmol/L Chloride Level 97 mmol/L 100 mmol/L Carbon Dioxide Level 28 mmol/L 27 mmol/L Anion Gap 10.0 mmol/L 10.0 mmol/L Blood Urea Nitrogen 8 mg/dl 5 mg/dl Creatinine 0.79 mg/dl 0.66 mg/dl Est Creatinine Clear Calc Drug Dose 103.2 ml/min 123.5 ml/min Estimated GFR () > 150.0 > 150.0 Estimated GFR (Non- 130.2 140.2 BUN/Creatinine Ratio 10.0 7.0 Random Glucose 98 mg/dl 79 mg/dl Calcium Level 8.8 mg/dl 8.2 mg/dl Total Bilirubin 14.7 mg/dl 9.9 mg/dl Direct Bilirubin 9.4 mg/dl 5.1 mg/dl Aspartate Amino Transf (AST/SGOT) 82 U/L 51 U/L Alanine Aminotransferase (ALT/SGPT) 159 U/L 110 U/L Alkaline Phosphatase 95 U/L 85 U/L Total Protein 8.0 gm/dl 7.0 gm/dl Albumin 4.5 gm/dl 3.7 gm/dl Lipase 98608 U/L Target Cells 1+ Globulin 3.3 gm/dl Albumin/Globulin Ratio 1.1 Assessment & Plan 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 With his chemistries and findings I suspect that he has had a gallstone and now resultant pancreatitis. CBC is acceptable. Would continue hydration and I suspect surgery will need to be consulted. A cholecystectomy will eventually need to be done once the a pancreatitis subsides. I have told Mr. Parkinson not to take any hydroxyurea until after this - (the time of surgery) is established and done
[2017-01-17] MEDS: HYDROmorphone INJ 1 MG/ML SYR IV PRN ×3 (19:20→23:21)
[2017-01-17 23:20] VITALS: BP 121/78; PULSE 98; TEMP 37; O2SAT 97
[2017-01-18] MEDS: HYDROmorphone INJ 1 MG/ML SYR IV PRN ×11 (01:22→23:13)
[2017-01-18] MEDS: LACTATED RINGER'S 1000ML 1,000 ML IV SCH ×7 (01:22→22:15)
[2017-01-18] MEDS: PIPERACILL/TAZOBAC IV 3.375 GM in DEXTROSE 5% 100ML 100 ML IV SCH ×3 (03:24→13:23)
[2017-01-18] MEDS ORDERED: VANCOMYCIN TROUGH SCH (03:30)
[2017-01-18] MEDS: DiphenhydrAMINE HCL 50 MG/ML VIAL IV PRN ×2 (05:15→20:15)
[2017-01-18 07:01] VITALS: BP 132/86; PULSE 127; TEMP 37; O2SAT 100
[2017-01-18 07:30] VITALS: PULSE 94
[2017-01-18 07:47] LABS: BASO % 0.2 %; BASO ABS # 0.02 K/uL (0-0.2); COMPLETE YES; HEMATOCRIT 27.8 % (42-52); IG% 0.4 %; LYMPH % 15.9 %; LYMPH ABS # 1.71 K/uL (1.2-3.4); MEAN CELL VOLUME 71.3 fL (80-100); MEAN CORPUSCULAR HEMOGLOBIN 25.9 pg (25-34); MEAN CORPUSCULAR HGB CONC 36.3 g/dl (32-36); MEAN PLATELET VOLUME 10.6 fL (7.4-10.4); NEUT % 69.5 %; PLATELET COUNT 192 K/uL (130-400); WHITE BLOOD COUNT 10.73 K/uL (4.8-10.8)
[2017-01-18 07:57] LABS: INR 1.2 (0.9-1.1); PARTIAL THROMBOPLASTIN RATIO 1.3; PROTHROMBIN TIME (PATIENT) 13.4 SECONDS (9.0-12.0)
[2017-01-18 08:20] LABS: ALKALINE PHOSPHATASE 67 U/L (45-117); ALT/SGPT 70 U/L (12-78); AMYLASE 215 U/L (25-115); AST/SGOT 27 U/L (15-37); BLOOD UREA NITROGEN 7 mg/dl (7-18); BUN/CREATININE RATIO 13.5 (10-20); CALCIUM 8.4 mg/dl (8.5-10.1); CARBON DIOXIDE 29 mmol/L (21-32); CHLORIDE 98 mmol/L (98-107); CREATININE 0.51 mg/dl (0.60-1.40); GLUCOSE 68 mg/dl (70-99); MAGNESIUM 1.4 mg/dl (1.8-2.4); POTASSIUM 3.4 mmol/L (3.5-5.1); SODIUM 137 mmol/L (136-145)
[2017-01-18] MEDS ORDERED: MAGNESIUM SULFATE 1GM / D5W 1 GM in PREMIXED IN D5W 100 ML IV ONE (10:00)
--- NOTE | 2017-01-18 10:06 | Gastroenterology Progress Note ---
Progress Note Date of Service: Jan 18, 2017 Subjective Pt evaluation today including: conversation w/ patient, physical exam, chart review, lab review Patient was seen and examined this morning. He reports that he is hungry and is no longer having any of the pain that brought him to the ED. No nausea, no vomiting. No fever, chills. Has been NPO with IVF. He has not had a BM since admission but does not feel like he has to go due to limited PO intake. Denies any black/bloody stools, hematemesis coffee ground emesis. He reports he has been itchy since admission - he believed related to Dilaudid use as this has happened with other pain medications. Denies any SOB, facial edema with dilaudid Also with elevated TB. Not pruritic today. TB elevation resolving, still receiving Dilaudid. Review of Systems Constitutional: No chills, No fever Respiratory: No cough, No shortness of breath Cardiac: No chest pain, No edema Abdomen: No GI bleeding, No constipation, No diarrhea, No nausea, No pain, No vomiting Medications Current Inpatient Medications Medications (Trade) Dose Ordered Sig/Enmanuel Route Start Time Stop Time Status Last Admin Dose Admin Piperacillin Sod/ Tazobactam Sod/ Dextrose (Zosyn Iv/D5 100ml) 115 ml @ 28 mls/hr Q8H IV 01/17/17 04:00 01/27/17 03:59 01/18/17 03:24 28 MLS/HR Ondansetron HCl 4 mg 4 mg Q6H PRN IV 01/17/17 01:15 02/16/17 01:14 Pantoprazole Sodium 40 mg/ Syringe 10 ml @ 5 mls/min DAILY@11 IV 01/17/17 11:00 02/16/17 10:59 01/17/17 10:41 5 MLS/MIN Promethazine HCl/ Sodium Chloride (Phenergan Inj/ Nss 50ml) 51 ml @ 204 mls/hr Q6H PRN IV 01/17/17 01:15 02/16/17 01:14 Diphenhydramine HCl (Benadryl Inj) 50 mg Q6H PRN IV 01/17/17 01:30 02/16/17 01:29 01/18/17 05:15 50 MG Piperacillin Sod/ Tazobactam Sod 1 ea 1 ea UD PRN N/A 01/17/17 09:30 02/16/17 09:29 Lactated Ringer's (Lr 1000ml) 1,000 ml @ 250 mls/hr Q4H IV 01/17/17 10:00 02/16/17 09:59 01/18/17 05:14 250 MLS/HR Hydromorphone HCl (Dilaudid Inj) 0.5 mg Q2HWA PRN IV 01/17/17 18:00 01/31/17 17:59 01/17/17 17:17 0.5 MG Hydromorphone HCl 1 mg 1 mg Q2HWA PRN IV 01/17/17 18:00 01/31/17 17:59 01/18/17 08:05 1 MG Magnesium Sulfate/ Prmx (Magnesium Sulfate/Premixed D5W) 100 ml @ 100 mls/hr NOW ONCE IV 01/18/17 10:00 01/18/17 10:59 Objective Vital Signs Date Time Temp Pulse Resp B/P Pulse Ox O2 Delivery O2 Flow Rate FiO2 01/18/17 08:00 Room Air 01/18/17 07:30 94 01/18/17 07:01 37.0 127 18 132/86 100 Room Air 01/17/17 23:26 Room Air 01/17/17 23:20 37.0 98 16 121/78 97 Room Air 01/17/17 20:00 Room Air 01/17/17 15:22 37.2 90 16 116/70 96 Room Air Physical Exam General Appearance: no apparent distress Eyes: PERRL ENT: hearing grossly normal Neck: supple Respiratory/Chest: lungs clear, normal breath sounds, no respiratory distress, no accessory muscle use Cardiovascular: regular rate, rhythm, no JVD, no murmur Abdomen: normal bowel sounds, non tender, soft, no organomegaly, no pulsatile mass Neurologic/Psych: alert, normal mood/affect, oriented x 3 Skin: normal color, warm/dry, no rash Laboratory Results Last 24 Hours Test 01/17/17 10:09 01/18/17 07:37 White Blood Count 14.04 K/uL 10.73 K/uL Red Blood Count 4.61 M/uL 3.90 M/uL Hemoglobin 11.7 g/dL 10.1 g/dL Hematocrit 31.8 % 27.8 % Mean Corpuscular Volume 69.0 fL 71.3 fL Mean Corpuscular Hemoglobin 25.4 pg 25.9 pg Mean Corpuscular Hemoglobin Concent 36.8 g/dl 36.3 g/dl Platelet Count 222 K/uL 192 K/uL Neutrophils (%) (Auto) 81.9 % 69.5 % Lymphocytes (%) (Auto) 8.3 % 15.9 % Monocytes (%) (Auto) 9.0 % 13.0 % Eosinophils (%) (Auto) 0.3 % 1.0 % Basophils (%) (Auto) 0.1 % 0.2 % Neutrophils # (Auto) 11.51 K/uL 7.46 K/uL Lymphocytes # (Auto) 1.17 K/uL 1.71 K/uL Monocytes # (Auto) 1.26 K/uL 1.39 K/uL Eosinophils # (Auto) 0.04 K/uL 0.11 K/uL Basophils # (Auto) 0.01 K/uL 0.02 K/uL RDW Standard Deviation 39.0 fL 41.7 fL RDW Coefficient of Variation 15.8 % 16.0 % Immature Granulocyte % (Auto) 0.4 % 0.4 % Immature Granulocyte # (Auto) 0.05 K/uL 0.04 K/uL Polychromasia 1+ Microcytosis PRESENT Target Cells 1+ Sodium Level 137 mmol/L 137 mmol/L Potassium Level 3.5 mmol/L 3.4 mmol/L Chloride Level 100 mmol/L 98 mmol/L Carbon Dioxide Level 27 mmol/L 29 mmol/L Anion Gap 10.0 mmol/L 10.0 mmol/L Blood Urea Nitrogen 5 mg/dl 7 mg/dl Creatinine 0.66 mg/dl 0.51 mg/dl Est Creatinine Clear Calc Drug Dose 123.5 ml/min 159.8 ml/min Estimated GFR () > 150.0 > 150.0 Estimated GFR (Non- 140.2 > 150.0 BUN/Creatinine Ratio 7.0 13.5 Random Glucose 79 mg/dl 68 mg/dl Calcium Level 8.2 mg/dl 8.4 mg/dl Total Bilirubin 9.9 mg/dl 5.5 mg/dl Direct Bilirubin 5.1 mg/dl 2.0 mg/dl Aspartate Amino Transf (AST/SGOT) 51 U/L 27 U/L Alanine Aminotransferase (ALT/SGPT) 110 U/L 70 U/L Alkaline Phosphatase 85 U/L 67 U/L Total Protein 7.0 gm/dl 6.4 gm/dl Albumin 3.7 gm/dl 3.2 gm/dl Globulin 3.3 gm/dl Albumin/Globulin Ratio 1.1 Mean Platelet Volume 10.6 fL Prothrombin Time 13.4 SECONDS Prothromb Time International Ratio 1.2 Activated Partial Thromboplast Time 34.3 SECONDS Partial Thromboplastin Ratio 1.3 Magnesium Level 1.4 mg/dl Amylase Level 215 U/L Lipase 1253 U/L Assessment and Plan Patient is a 21 year old male with sickle cell disease with moderately severe gallstone pancreatitis. Today he is no longer having any epigastric pain or nausea. Labs continue to improve. TB 5.5, DB 2 AST 27 ALT 70 ALKP 67. He is requesting food. Continue IVF to continue with LR at 250 cc/hr until 01/19/17 Clear liquids as tolerated. May advance to low fat diet 01/19/17 if doing well with clear liquids. IV Pain medications as needed Continue Zosyn LFT's while admitted Please call with any signs of decompensation, such as hypotension, fevers, or chills - will need repeat CT to exclude necrosis, pancreatic fluid collections at that time Consult surgery for cholecystectomy evaluation GI to sign off. Call with questions. I have seen and examined the patient with Leni Ayala whose note reflect sour findings and plan.
[2017-01-18] MEDS: PANTOprazole INJ 40 MG in SYRINGE 0 ML IV SCH (10:13)
--- NOTE | 2017-01-18 13:12 | Surgery Consultation ---
Consultation Date of Consultation: Jan 18, 2017. Attending Physician: Osman Valle DO (Faye Andrade, NADEEM) History of Present Illness Marley is a pleasant 21 year-old male with history of sickle cell anemia who originally presented to the emergency room with abdominal pain on 01/15/[address] scan of abdomen and pelvis which showed cholelithiasis and decreased size of spleen and improvement in splenic infarct. He had no leukocytosis however his total bilirubin was elevated at 3.3. He was discharged home on same day and felt to have a sickle cell crisis however whenever he got home he continued to have severe abdominal pain and presented to the emergency room again on 01/16/2017. Marley states the pain was an 11 on a scale of 10. States the pain was very severe and sharp in the entire abdomen with radiation to his back. Associated nausea and vomiting. No fevers or chills. He states he has never had this type of pain before. Denies of any fever, chills, night sweats, changes in bowel habits, diarrhea, constipation , or blood in stools. He did notice very dark urine as well. On this ER admission he had a leukocytosis of 15.35 and total bilirubin of 14.7 with direct bilirubin of 9.4. [place]ase [place] [id number]. Abdominal ultrasound showed gallstones, slight gallbladder wall thickening, and dilated common bile duct at 0.9 cm. MRCP however did not show dilated CBD and no choledocholithiasis. IT did however show evidence of peripancreatic fluid and findings suggestive of acute pancreatitis. Patient states he is feeling better since admission. Still having some right and left abdominal pain. No nausea or vomiting since admission. Is itchy. 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 As of note, patient's brother has sickle cell anemia as well and had history of gallstones in which he required ERCP and gallbladder removal. (Faye Andrade PA-C) Past Medical/Surgical History Medical Problems: (1) Central abdominal pain Status: Acute (2) Cholecystitis Status: Acute (3) LUQ abdominal pain Status: Acute (4) Pancreatitis Status: Acute (5) Sickle cell crisis Status: Acute (6) Sickle cell disease Status: Acute (7) Splenic infarct Status: Acute (8) Splenic infarct Status: Acute (Faye Andrade PA-C) Family History Diabetes mellitus FH: heart disease Hypertension Kidney disease (Faye Andrade PA-C) Diabetes mellitus FH: heart disease Hypertension Kidney disease (Jama Betancur M.D.) Social History Smoking Status: Light Tobacco Smoker Smokeless Tobacco Use: No Alcohol Use: none Marital Status: single 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: [employer]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 (Faye Andarde PA-C) Allergies Coded Allergies: No Known Allergies (Unverified , 11/01/16) Home Medications Scheduled Hydroxyurea (Hydrea Cap), 500 MG PO DAILY Scheduled PRN Ondansetron Hcl (Zofran), 4 MG PO Q6H PRN for Nausea Oxycodone/Acetaminophen 10MG/325MG (Percocet 10MG/325MG), 1 TAB PO DIRECTED PRN for Pain Current Inpatient Medications Current Inpatient Medications Medications (Trade) Dose Ordered Sig/Enmanuel Route Start Time Stop Time Status Last Admin Dose Admin Piperacillin Sod/ Tazobactam Sod/ Dextrose (Zosyn Iv/D5 100ml) 115 ml @ 28 mls/hr Q8H IV 01/17/17 04:00 01/27/17 03:59 01/18/17 12:06 28 MLS/HR Ondansetron HCl 4 mg 4 mg Q6H PRN IV 01/17/17 01:15 02/16/17 01:14 Pantoprazole Sodium 40 mg/ Syringe 10 ml @ 5 mls/min DAILY@11 IV 01/17/17 11:00 02/16/17 10:59 01/18/17 10:13 5 MLS/MIN Promethazine HCl/ Sodium Chloride (Phenergan Inj/ Nss 50ml) 51 ml @ 204 mls/hr Q6H PRN IV 01/17/17 01:15 02/16/17 01:14 Diphenhydramine HCl (Benadryl Inj) 50 mg Q6H PRN IV 01/17/17 01:30 02/16/17 01:29 01/18/17 05:15 50 MG Piperacillin Sod/ Tazobactam Sod 1 ea 1 ea UD PRN N/A 01/17/17 09:30 02/16/17 09:29 Lactated Ringer's (Lr 1000ml) 1,000 ml @ 250 mls/hr Q4H IV 01/17/17 10:00 02/16/17 09:59 01/18/17 10:13 250 MLS/HR Hydromorphone HCl (Dilaudid Inj) 0.5 mg Q2HWA PRN IV 01/17/17 18:00 01/31/17 17:59 01/17/17 17:17 0.5 MG Hydromorphone HCl (Dilaudid Inj) 1 mg Q2HWA PRN IV 01/17/17 18:00 01/31/17 17:59 01/18/17 12:06 1 MG (Faye Andrade, PA-C) Review of Systems Constitutional: No chills, No fever, No sweats Cardiovascular: No chest pain Abdomen: + nausea, + pain, + vomiting, No constipation, No diarrhea Musculoskeletal: No joint pain, No muscle pain Genitourinary - Male: + problem reported (dark urine), No dysuria, No hematuria , No urinary frequency, No urinary urgency Integumentary: + itch (Faye Andrade, PA-C) Physical Exam Date Time Temp Pulse Resp B/P Pulse Ox O2 Delivery O2 Flow Rate FiO2 01/18/17 08:00 Room Air 01/18/17 07:30 94 01/18/17 07:01 37.0 127 18 132/86 100 Room Air 01/17/17 23:26 Room Air 01/17/17 23:20 37.0 98 16 121/78 97 Room Air 01/17/17 20:00 Room Air 01/17/17 15:22 37.2 90 16 116/70 96 Room Air General Appearance: WD/WN, no apparent distress Head: normocephalic, atraumatic Eyes: + pertinent finding (+ sclera yellow) ENT: hearing grossly normal Neck: trachea midline Respiratory/Chest: lungs clear, normal breath sounds, no respiratory distress, no accessory muscle use Cardiovascular: regular rate, rhythm, no murmur Abdomen/GI: soft, no organomegaly, no pulsatile mass, + tenderness (RUQ and LUQ ) Neurologic/Psych: alert, normal mood/affect, oriented x 3 Skin: warm/dry, no rash, + jaundice (Faye Andrade, PA-C) Laboratory Results Last 24 Hours Test 01/18/17 07:37 White Blood Count 10.73 K/uL Red Blood Count 3.90 M/uL Hemoglobin 10.1 g/dL Hematocrit 27.8 % Mean Corpuscular Volume 71.3 fL Mean Corpuscular Hemoglobin 25.9 pg Mean Corpuscular Hemoglobin Concent 36.3 g/dl Platelet Count 192 K/uL Mean Platelet Volume 10.6 fL Neutrophils (%) (Auto) 69.5 % Lymphocytes (%) (Auto) 15.9 % Monocytes (%) (Auto) 13.0 % Eosinophils (%) (Auto) 1.0 % Basophils (%) (Auto) 0.2 % Neutrophils # (Auto) 7.46 K/uL Lymphocytes # (Auto) 1.71 K/uL Monocytes # (Auto) 1.39 K/uL Eosinophils # (Auto) 0.11 K/uL Basophils # (Auto) 0.02 K/uL RDW Standard Deviation 41.7 fL RDW Coefficient of Variation 16.0 % Immature Granulocyte % (Auto) 0.4 % Immature Granulocyte # (Auto) 0.04 K/uL Prothrombin Time 13.4 SECONDS Prothromb Time International Ratio 1.2 Activated Partial Thromboplast Time 34.3 SECONDS Partial Thromboplastin Ratio 1.3 Sodium Level 137 mmol/L Potassium Level 3.4 mmol/L Chloride Level 98 mmol/L Carbon Dioxide Level 29 mmol/L Anion Gap 10.0 mmol/L Blood Urea Nitrogen 7 mg/dl Creatinine 0.51 mg/dl Est Creatinine Clear Calc Drug Dose 159.8 ml/min Estimated GFR () > 150.0 Estimated GFR (Non- > 150.0 BUN/Creatinine Ratio 13.5 Random Glucose 68 mg/dl Calcium Level 8.4 mg/dl Magnesium Level 1.4 mg/dl Total Bilirubin 5.5 mg/dl Direct Bilirubin 2.0 mg/dl Aspartate Amino Transf (AST/SGOT) 27 U/L Alanine Aminotransferase (ALT/SGPT) 70 U/L Alkaline Phosphatase 67 U/L Total Protein 6.4 gm/dl Albumin 3.2 gm/dl Amylase Level 215 U/L Lipase 1253 U/L ULTRASOUND RIGHT UPPER QUADRANT ABDOMEN CLINICAL HISTORY: Right upper quadrant abdominal pain. COMPARISON STUDY: Abdominal CT dated 01/14/2017. TECHNIQUE: Real-time, grayscale, and color flow sonography of the right upper quadrant of the abdomen was performed. Images are reviewed in the transverse and longitudinal planes. FINDINGS: Liver: The liver is normal in size and echotexture. There is no intrahepatic biliary ductal dilatation. The main portal vein is patent. Gallbladder: The gallbladder is distended and filled with sludge and stones. The gallbladder wall is thickened and hyperemic measuring up to 4 mm. There is a small volume of free fluid in the right upper quadrant. A sonographic Ruelas's sign is reportedly present. The common bile duct measures up to 0.9 cm in diameter. Pancreas: Not well visualized due to overlying bowel gas. Right kidney: Survey images of the right kidney demonstrate normal size and echotexture. There is no hydronephrosis. Ascites: A small volume of free fluid is seen in the right upper quadrant. IMPRESSION: Cholelithiasis and biliary sludge with sonographic evidence of acute cholecystitis. Surgical consultation is advised. MRCP CLINICAL HISTORY: Acute cholecystitis. Abdominal pain. COMPARISON STUDY: CT of the abdomen and pelvis January 14, 2017 and right upper quadrant ultrasound January 16, 2017. TECHNIQUE: Utilizing a 1.5 Michelle magnet and heavily T2 weighted sequences, multiplanar, multi echo imaging of the abdomen was performed without IV contrast. FINDINGS: The splenic infarct is similar appearance to CT of January 14, 2017. No biliary ductal dilatation is identified. No common bile duct calculi are identified although sensitivity is diminished due to motion artifact. There has been interval development of a small to moderate amount of fluid within the abdomen and pelvis since prior abdominal CT. Peripancreatic fluid is noted. Sludge and stones are noted within the gallbladder. There is mild gallbladder wall thickening. Trace bilateral pleural effusion are noted. Unenhanced images of the liver, adrenal glands and kidneys are normal. IMPRESSION: 1. Interval development of abdominal and pelvic ascites with peripancreatic infiltration. The findings favor acute pancreatitis. Discussed with Dr. Valle at time of dictation. 2. No biliary ductal dilatation. No common bile duct calculi identified although sensitivity diminished due to motion artifact. 3. Cholelithiasis and mild gallbladder wall thickening which may reflect acute cholecystitis. 4. No change in appearance of the splenic infarct. (Faye Andrade ., PA-C) Assessment & Plan Gallstone Pancreatitis - Leukocytosis resolved - Total bilirubin and Direct Bilirubin improving 5.5/2.0 respectively - Lipase trending down, 1253 today - +Jaundice Sickle Cell Anemia Plan: Discussed with patient cholecystectomy however will need to allow pancreatitis to improve prior to cholecystectomy. Will not plan on laparoscopic cholecystectomy for another few days. () Continue IV fluids, IV antibiotics, and conservative management Continue pain management prn Repeat am labs, cbc, bmp, LFTs, lipase Now on clear liquids Continue management established by GI and Medicine services will follow Dr. Betancur has seen and examined patient and agrees with above stated findings and treatment plan (Faye Andrade ., PA-C) I interviewed and examined this patient and I agree with the above note. He has a history of sickle cell anemia and was admitted with a rather significant pancreatitis with significant elevation of LFT's and has developed ascites most likely due to cholelithiasis and sludge. He will need a cholecystectomy at some point after resolution of the pancreatitis. We will continue to follow and determine timing of surgery. (Jama Betancur M.D.)
--- NOTE | 2017-01-18 13:51 | Hospitalist Progress Note ---
Hospitalist Progress Note Date of Service Jan 18, 2017. (Mariaa Covarrubias ., ALAINAC) Subjective Pt evaluation today including: conversation w/ patient, physical exam, chart review, lab review, review of inpatient medication list Pain: 4/10 bilateral flank pain PO Intake: NPO Voiding: no voiding problems Patient reports blemished better. He states he still has a 4/10 bilateral flank pain that is worse with deep breaths. He also complains of weakness and fatigue. The patient is being kept NPO. He denies any nausea or vomiting. The patient complains of itchiness, likely secondary to elevated bilirubin. The patient denies fevers, chills, sweats, chest pain, palpitations, claudication, cough, wheezing, shortness of breath, nausea, vomiting, dysuria, hematuria, urinary retention, paralysis, numbness and tingling. Additional Comments: See HPI for pertinent positives and negatives. All other systems reviewed and negative. (Mariaa Covarrubias, ALAINAC) Objective Vital Signs Date Time Temp Pulse Resp B/P Pulse Ox O2 Delivery O2 Flow Rate FiO2 01/18/17 08:00 Room Air 01/18/17 07:30 94 01/18/17 07:01 37.0 127 18 132/86 100 Room Air 01/17/17 23:26 Room Air 01/17/17 23:20 37.0 98 16 121/78 97 Room Air 01/17/17 20:00 Room Air 01/17/17 15:22 37.2 90 16 116/70 96 Room Air (Mariaa Covarrubias PA-C) Physical Exam General Appearance: WD/WN, no apparent distress, + thin Eyes: normal inspection, PERRL, EOMI ENT: hearing grossly normal, pharynx normal, + pertinent finding (icterus) Neck: supple, no JVD, trachea midline Respiratory/Chest: lungs clear, normal breath sounds, no respiratory distress Cardiovascular: no gallop, no murmur, + tachycardia (regular rhythm) Abdomen: normal bowel sounds, soft, + tenderness (mild diffuse tenderness) Extremities: non-tender, normal inspection, no pedal edema Neurologic/Psychiatric: alert, normal mood/affect, oriented x 3 Skin: normal color, warm/dry, + jaundice (Mariaa Covarrubias, PEDRO-C) Laboratory Results Last 24 Hours Test 01/18/17 07:37 White Blood Count 10.73 K/uL Red Blood Count 3.90 M/uL Hemoglobin 10.1 g/dL Hematocrit 27.8 % Mean Corpuscular Volume 71.3 fL Mean Corpuscular Hemoglobin 25.9 pg Mean Corpuscular Hemoglobin Concent 36.3 g/dl Platelet Count 192 K/uL Mean Platelet Volume 10.6 fL Neutrophils (%) (Auto) 69.5 % Lymphocytes (%) (Auto) 15.9 % Monocytes (%) (Auto) 13.0 % Eosinophils (%) (Auto) 1.0 % Basophils (%) (Auto) 0.2 % Neutrophils # (Auto) 7.46 K/uL Lymphocytes # (Auto) 1.71 K/uL Monocytes # (Auto) 1.39 K/uL Eosinophils # (Auto) 0.11 K/uL Basophils # (Auto) 0.02 K/uL RDW Standard Deviation 41.7 fL RDW Coefficient of Variation 16.0 % Immature Granulocyte % (Auto) 0.4 % Immature Granulocyte # (Auto) 0.04 K/uL Prothrombin Time 13.4 SECONDS Prothromb Time International Ratio 1.2 Activated Partial Thromboplast Time 34.3 SECONDS Partial Thromboplastin Ratio 1.3 Sodium Level 137 mmol/L Potassium Level 3.4 mmol/L Chloride Level 98 mmol/L Carbon Dioxide Level 29 mmol/L Anion Gap 10.0 mmol/L Blood Urea Nitrogen 7 mg/dl Creatinine 0.51 mg/dl Est Creatinine Clear Calc Drug Dose 159.8 ml/min Estimated GFR () > 150.0 Estimated GFR (Non- > 150.0 BUN/Creatinine Ratio 13.5 Random Glucose 68 mg/dl Calcium Level 8.4 mg/dl Magnesium Level 1.4 mg/dl Total Bilirubin 5.5 mg/dl Direct Bilirubin 2.0 mg/dl Aspartate Amino Transf (AST/SGOT) 27 U/L Alanine Aminotransferase (ALT/SGPT) 70 U/L Alkaline Phosphatase 67 U/L Total Protein 6.4 gm/dl Albumin 3.2 gm/dl Amylase Level 215 U/L Lipase 1253 U/L (Mariaa Covarrubias ., ALAINAC) Assessment and Plan 21 y/o male with a history of sickle cell anemia presents to the ED on 01/16 with abdominal pain, nausea, and vomiting. Acute gallstone pancreatitis/acute cholecystitis--improving. Pt met sepsis criteria on admission with tachycardia, WBC >12K and source of infection -Admit to MedSurg -Lactated Ringer's at 250 cc/hr -GI consulted, appreciate recs: Start clear liquid diet. If tolerated, patient may start low-fat diet on 01/19. Continue IVF at 250 cc/hr until 01/19. -Consult general surgery for cholecystectomy evaluation, appreciate recs: Cholecystectomy after pancreatitis improves/resolves. Continue current treatment. Repeat CBC, BMP, LFTs, lipase in the morning. -Continue IV Zosyn -Clear liquid diet as tolerated -Continue pain control with IV Dilaudid. -Continue nausea control with IV Zofran and Phenergan -Continue Protonix 40 mg IV qd -LFTs much improved. Total bilirubin 5.5 on 01/18, improved from 9.9. AST and ALT within normal limits -Lipase improved to 1253 on 01/18 from 12,504 Hypomagnesemia -Magnesium 1.4 on 01/18 -Given magnesium sulfate 1 g IV 1 -Continue to monitor. Will likely need a second dose -Very mild hypokalemia on 01/18 at 3.4. Continue to monitor. If magnesium is WNL and potassium still low, will replete as needed Sickle cell anemia--stable -Hgb stable at 10.1 on 01/18 -Dr. Benitez consulted, appreciate recs: hold hydroxyurea DVT prophylaxis -SCDs Code Status -Level I, FULL RESUSCITATION STATUS This chart was completed in part utilizing [employer] Voice Recognition software. Attempts were made to minimize the grammatical errors, random word insertions, pronoun errors and incomplete sentences. Any formal questions or concerns about the content, text or information contained within the body of this dictation should be directly addressed to the provider for clarification. (Mariaa Covarrubias ., NADEEM) I personally evaluated this patient and performed a physical exam. I reviewed the orders. I read this note performed by Mariaa Covarrubias PA-C and agree with its contents. Patient is doing much better today. Pain has greatly improved. He decided to simply withdraw from this semester so as not to have negative effect on GPA. I told him that I will be signing off this evening and that I will update my colleague who will resume care. (Osman Valle, DO)
[2017-01-18 15:38] VITALS: BP 126/68; PULSE 93; TEMP 37.2; O2SAT 96
[2017-01-18 23:25] VITALS: BP 132/70; PULSE 92; TEMP 36.8; O2SAT 99
[2017-01-19] MEDS: HYDROmorphone INJ 1 MG/ML SYR IV PRN ×4 (01:25→08:07)
[2017-01-19] MEDS: LACTATED RINGER'S 1000ML 1,000 ML IV SCH ×2 (02:15→05:46)
[2017-01-19] MEDS: PIPERACILL/TAZOBAC IV 3.375 GM in DEXTROSE 5% 100ML 100 ML IV SCH ×3 (03:21→20:12)
[2017-01-19 07:43] LABS: BASO % 0.5 %; EOS % 4.4 %; HEMATOCRIT 25.6 % (42-52); IG% 0.2 %; LYMPH % 29.9 %; LYMPH ABS # 1.83 K/uL (1.2-3.4); MEAN CELL VOLUME 69.6 fL (80-100); MEAN CORPUSCULAR HEMOGLOBIN 25.3 pg (25-34); MEAN CORPUSCULAR HGB CONC 36.3 g/dl (32-36); MONO % 14.5 %; NEUT % 50.5 %; PLATELET COUNT 175 K/uL (130-400); RED BLOOD COUNT 3.68 M/uL (4.7-6.1); WHITE BLOOD COUNT 6.12 K/uL (4.8-10.8)
[2017-01-19 07:44] LABS: BASO ABS # 0.03 K/uL (0-0.2)
[2017-01-19 07:55] VITALS: BP 111/74; PULSE 74; TEMP 36.8; O2SAT 93
[2017-01-19 08:00] LABS: INR 1.1 (0.9-1.1); PARTIAL THROMBOPLASTIN RATIO 1.3
[2017-01-19 08:17] LABS: ALT/SGPT 57 U/L (12-78); AMYLASE 89 U/L (25-115); BLOOD UREA NITROGEN 4 mg/dl (7-18); BUN/CREATININE RATIO 7.1 (10-20); CALCIUM 8.6 mg/dl (8.5-10.1); CARBON DIOXIDE 32 mmol/L (21-32); CHLORIDE 101 mmol/L (98-107); CREATININE 0.49 mg/dl (0.60-1.40); GLUCOSE 64 mg/dl (70-99); MAGNESIUM 1.7 mg/dl (1.8-2.4); POTASSIUM 3.7 mmol/L (3.5-5.1); SODIUM 139 mmol/L (136-145)
[2017-01-19 08:22] LABS: ALKALINE PHOSPHATASE 62 U/L (45-117); AST/SGOT 28 U/L (15-37)
[2017-01-19] MEDS ORDERED: MoRPHine SULFATE 2 MG/ML CARP IV PRN (09:00)
[2017-01-19] MEDS ORDERED: MoRPHine SULFATE 4 MG/ML 1 ML CARP\\VIAL IV PRN (09:00)
[2017-01-19 09:04] LABS: COMPLETE YES; LARGE PLATELETS 1+; MICROCYTOSIS PRESENT; POLYCHROMASIA 1+; TARGET CELLS 2+
--- NOTE | 2017-01-19 09:36 | Surgery Progress Note ---
Surgery Progress Note Date of Service Jan 19, 2017. Subjective Post OP Day: HD # 2 + diet (tolerating clear liquids), + flatus, + nausea, + pain controlled, No SOB , No bowel movement, No chest pain, No vomiting "Feeling better than yesterday, abdominal pain not as bad" slight nausea after drinking apple juice yesterday Objective Vital Signs: Date Time Temp Pulse Resp B/P Pulse Ox O2 Delivery O2 Flow Rate FiO2 01/19/17 08:15 Room Air 01/19/17 07:55 36.8 74 16 111/74 93 Room Air 01/18/17 23:25 36.8 92 15 132/70 99 Room Air 01/18/17 23:20 Room Air 01/18/17 15:38 37.2 93 17 126/68 96 Room Air 01/18/17 15:15 Room Air General Appearance: WD/WN, no apparent distress, + pertinent finding (+ jaundice, sclera yellow) Head: normocephalic, atraumatic Neck: trachea midline Respiratory/Chest: lungs clear, normal breath sounds, no respiratory distress, no accessory muscle use Cardiovascular: regular rate, rhythm, no murmur Abdomen: non tender, non distended, soft, no organomegaly, no pulsatile mass Laboratory Results: Results Past 24 Hours Test 01/19/17 06:37 Range/Units White Blood Count 6.12 4.8-10.8 K/uL Red Blood Count 3.68 4.7-6.1 M/uL Hemoglobin 9.3 14.0-18.0 g/dL Hematocrit 25.6 42-52 % Mean Corpuscular Volume 69.6 80-100 fL Mean Corpuscular Hemoglobin 25.3 25-34 pg Mean Corpuscular Hemoglobin Concent 36.3 32-36 g/dl Platelet Count 175 130-400 K/uL Neutrophils (%) (Auto) 50.5 % Lymphocytes (%) (Auto) 29.9 % Monocytes (%) (Auto) 14.5 % Eosinophils (%) (Auto) 4.4 % Basophils (%) (Auto) 0.5 % Neutrophils # (Auto) 3.09 1.4-6.5 K/uL Lymphocytes # (Auto) 1.83 1.2-3.4 K/uL Monocytes # (Auto) 0.89 0.11-0.59 K/uL Eosinophils # (Auto) 0.27 0-0.5 K/uL Basophils # (Auto) 0.03 0-0.2 K/uL RDW Standard Deviation 39.1 36.4-46.3 fL RDW Coefficient of Variation 15.6 11.5-14.5 % Immature Granulocyte % (Auto) 0.2 % Immature Granulocyte # (Auto) 0.01 0.00-0.02 K/uL Large Platelets 1+ Polychromasia 1+ Microcytosis PRESENT Target Cells 2+ Prothrombin Time 12.0 9.0-12.0 SECONDS Prothromb Time International Ratio 1.1 0.9-1.1 Activated Partial Thromboplast Time 33.9 21.0-31.0 SECONDS Partial Thromboplastin Ratio 1.3 Sodium Level 139 136-145 mmol/L Potassium Level 3.7 3.5-5.1 mmol/L Chloride Level 101 98-107 mmol/L Carbon Dioxide Level 32 21-32 mmol/L Anion Gap 6.0 3-11 mmol/L Blood Urea Nitrogen 4 7-18 mg/dl Creatinine 0.49 0.60-1.40 mg/dl Est Creatinine Clear Calc Drug Dose 166.3 ml/min Estimated GFR () > 150.0 Estimated GFR (Non- > 150.0 BUN/Creatinine Ratio 7.1 10-20 Random Glucose 64 70-99 mg/dl Calcium Level 8.6 8.5-10.1 mg/dl Magnesium Level 1.7 1.8-2.4 mg/dl Total Bilirubin 4.3 0.2-1 mg/dl Direct Bilirubin 1.6 0-0.2 mg/dl Aspartate Amino Transf (AST/SGOT) 28 15-37 U/L Alanine Aminotransferase (ALT/SGPT) 57 12-78 U/L Alkaline Phosphatase 62 45-117 U/L Total Protein 6.6 6.4-8.2 gm/dl Albumin 3.3 3.4-5.0 gm/dl Amylase Level 89 25-115 U/L Lipase 595 73-393 U/L Assessment & Plan Acute Gallstone Pancreatitis - vital signs stable - Abdominal pain improving and controlled with Dilaudid - tolerating clear liquids - Total bilirubin 4.3, Direct bili- 1.6, and Lipase 595 (all trending down) Plan: Diet advanced per GI and Medicine regarding pancreatitis Pancreatic enzyme and total bilirubin improving Will continue conservative management established Change Dilaudid to Morphine per patient request Again would like a few more days to improve pancreatitis prior to laparoscopic cholecystectomy if patient decides to have surgery here. Repeat am labs Discussed with Dr. Betancur, will see patient later today
[2017-01-19] MEDS: PANTOprazole INJ 40 MG in SYRINGE 0 ML IV SCH (10:34)
[2017-01-19] MEDS: MoRPHine SULFATE 2 MG/ML CARP IV PRN ×3 (10:39→21:51)
[2017-01-19] MEDS: D5W AND LACTATED RINGERS 1,000 ML IV SCH ×3 (12:02→21:52)
--- NOTE | 2017-01-19 13:31 | HEME/ONC PROGRESS NOTE ---
DATE: 01/19/2017 DIAGNOSES: 1. Abdominal pain. 2. Pancreatitis. 3. Cholecystitis. 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 Benitez. He has had intermittent abdominal pain with and without nausea over the past couple of weeks. He was admitted about a week prior to his most recent admission thought to be suffering from a sickle crisis. He was seen in the interim by Dr. Benitez and recommended starting hydroxyurea. He was admitted with return of abdominal pain, amylase and lipase consistent with pancreatitis and ultrasound confirms cholecystitis with gallbladder wall thickening. Surgical consultation has been completed and elective surgery is recommended. Clinically, Mr. Neil feels well today, says his pain is completely resolved. PHYSICAL EXAMINATION: GENERAL: He is in no acute distress. VITAL SIGNS: Temperature 36.8, pulse 74, respiration 16, blood pressure 111/74. SKIN: Without rash or lesion. HEENT: Oral mucosa without erythema or ulceration. NECK: Supple. HEART: Regular rate and rhythm. No clicks, rubs, murmurs, gallops. LUNGS: Clear. ABDOMEN: Soft, nontender, nondistended. Bowel sounds are active. EXTREMITIES: No calf tenderness or swelling. NEUROLOGIC: Grossly intact. LABORATORY DATA: WBC count NL, hemoglobin 9.3, platelet count 175,000. Amylase 89, lipase 595, direct bilirubin 1.6, magnesium 1.7. Sodium 139, potassium 3.7, chloride 101, carbon dioxide 32, creatinine 0.49, and BUN 4. IMPRESSION: 1. Acute pancreatitis. 2. Cholecystitis/cholelithiasis. 3. Hemoglobin S with persistent hemoglobin. PLAN: Agree with Dr. Benitez's assessment that this gentleman will eventually need surgery. From a hematologic standpoint, no current support is necessary. He has been advised to hold off on initiating hydroxyurea until he undergoes surgery. According to nursing staff, he is still deciding whether to have surgery done here at [facility]. Will continue to follow him periodically throughout his hospital stay. Will also ensure that he has appropriate outpatient followup at [facility]. Thank you again for allowing us to participate in his care. DENNIS
[2017-01-19] MEDS ORDERED: MAGNESIUM SULFATE 1GM / D5W 1 GM in PREMIXED IN D5W 100 ML IV ONE (13:35)
--- NOTE | 2017-01-19 14:12 | Hospitalist Progress Note ---
Hospitalist Progress Note Date of Service Jan 19, 2017. (Mariaa Covarrubias ., NADEEM) Subjective Pt evaluation today including: conversation w/ patient, physical exam, chart review, lab review, review of inpatient medication list Pain: None PO Intake: Tolerating clear liquid diet Voiding: no voiding problems Patient reports feeling much better. He states that he has no abdominal pain currently and has not required any IV pain medication for several hours. He is tolerating a clear liquid diet well without any nausea or vomiting. The patient denies weakness and fatigued today and would like to advance his diet. The patient still complains of pruritus. He states that this has happened in the past when he takes oxycodone, and that this has occurred even prior to this acute pancreatitis episode and elevated bilirubin. The patient denies fevers, chills, sweats, chest pain, palpitations, claudication, cough, wheezing, shortness of breath, nausea, vomiting, abdominal pain, dysuria, hematuria, urinary retention, paralysis, weakness, numbness and tingling. Additional Comments: See HPI for pertinent positives and negatives. All other systems reviewed and negative. (Mariaa Covarrubias ., PEDRO-C) Objective Vital Signs Date Time Temp Pulse Resp B/P Pulse Ox O2 Delivery O2 Flow Rate FiO2 01/19/17 08:15 Room Air 01/19/17 07:55 36.8 74 16 111/74 93 Room Air 01/18/17 23:25 36.8 92 15 132/70 99 Room Air 01/18/17 23:20 Room Air 01/18/17 15:38 37.2 93 17 126/68 96 Room Air 01/18/17 15:15 Room Air (Mariaa Covarrubias, PEDRO-C) Physical Exam General Appearance: WD/WN, no apparent distress, + thin Eyes: PERRL, EOMI, + pertinent finding (icterus) ENT: normal ENT inspection, hearing grossly normal, pharynx normal Neck: supple, no JVD, trachea midline Respiratory/Chest: lungs clear, normal breath sounds, no respiratory distress Cardiovascular: regular rate, rhythm, no gallop, no murmur Abdomen: normal bowel sounds, non tender, soft Extremities: non-tender, normal inspection, no pedal edema Neurologic/Psychiatric: alert, normal mood/affect, oriented x 3 Skin: normal color, warm/dry, no rash (Mariaa Covarrubias .ALAINAC) Laboratory Results Last 24 Hours Test 01/19/17 06:37 White Blood Count 6.12 K/uL Red Blood Count 3.68 M/uL Hemoglobin 9.3 g/dL Hematocrit 25.6 % Mean Corpuscular Volume 69.6 fL Mean Corpuscular Hemoglobin 25.3 pg Mean Corpuscular Hemoglobin Concent 36.3 g/dl Platelet Count 175 K/uL Neutrophils (%) (Auto) 50.5 % Lymphocytes (%) (Auto) 29.9 % Monocytes (%) (Auto) 14.5 % Eosinophils (%) (Auto) 4.4 % Basophils (%) (Auto) 0.5 % Neutrophils # (Auto) 3.09 K/uL Lymphocytes # (Auto) 1.83 K/uL Monocytes # (Auto) 0.89 K/uL Eosinophils # (Auto) 0.27 K/uL Basophils # (Auto) 0.03 K/uL RDW Standard Deviation 39.1 fL RDW Coefficient of Variation 15.6 % Immature Granulocyte % (Auto) 0.2 % Immature Granulocyte # (Auto) 0.01 K/uL Large Platelets 1+ Polychromasia 1+ Microcytosis PRESENT Target Cells 2+ Prothrombin Time 12.0 SECONDS Prothromb Time International Ratio 1.1 Activated Partial Thromboplast Time 33.9 SECONDS Partial Thromboplastin Ratio 1.3 Sodium Level 139 mmol/L Potassium Level 3.7 mmol/L Chloride Level 101 mmol/L Carbon Dioxide Level 32 mmol/L Anion Gap 6.0 mmol/L Blood Urea Nitrogen 4 mg/dl Creatinine 0.49 mg/dl Est Creatinine Clear Calc Drug Dose 166.3 ml/min Estimated GFR () > 150.0 Estimated GFR (Non- > 150.0 BUN/Creatinine Ratio 7.1 Random Glucose 64 mg/dl Calcium Level 8.6 mg/dl Magnesium Level 1.7 mg/dl Total Bilirubin 4.3 mg/dl Direct Bilirubin 1.6 mg/dl Aspartate Amino Transf (AST/SGOT) 28 U/L Alanine Aminotransferase (ALT/SGPT) 57 U/L Alkaline Phosphatase 62 U/L Total Protein 6.6 gm/dl Albumin 3.3 gm/dl Amylase Level 89 U/L Lipase 595 U/L (Mariaa Covarrubias .ALAINAC) Assessment and Plan 21 y/o male with a history of sickle cell anemia presents to the ED on 01/16 with abdominal pain, nausea, and vomiting. Acute gallstone pancreatitis/acute cholecystitis--improving. Pt met sepsis criteria on admission with tachycardia, WBC >12K and source of infection -Admit to [facility] -IV fluids changed to D5 + lactated Ringer's at 200 cc/hr due to blood sugar of 64 this morning -GI consulted, appreciate recs: Start clear liquid diet. If tolerated, patient may start low-fat diet on 01/19. Continue IVF at 250 cc/hr until 01/19. GI signed off. -Consult general surgery for cholecystectomy evaluation, appreciate recs: Cholecystectomy after pancreatitis improves/resolves. Continue current treatment. -Continue IV Zosyn -Patient tolerating clear liquid diet well -Dilaudid changed to morphine per patient request -Continue nausea control with IV Zofran and Phenergan -Continue Protonix 40 mg IV qd -LFTs continued to improve. Total bilirubin 4.3 on 01/19, improved from 5.5. AST and ALT remain within normal limits -Lipase continues to improve. Lipase 595 on 01/11, improved from 1253. Hypomagnesemia--improving -Magnesium 1.4 on 01/18 -Given magnesium sulfate 1 g IV 1 -Magnesium 1.7 on 01/19 -Give another dose of magnesium sulfate 1 g IV, recheck in the morning -Very mild hypokalemia on 01/18 at 3.4. Magnesium is improving, potassium is also improved to 3.7 on 01/11 Sickle cell anemia--stable -Hgb stable at 9.3 on 01/19 -Dr. Benitez consulted, appreciate recs: hold hydroxyurea until surgery DVT prophylaxis -SCDs Code Status -Level I, FULL RESUSCITATION STATUS This chart was completed in part utilizing [employer] Speech Voice Recognition software. Attempts were made to minimize the grammatical errors, random word insertions, pronoun errors and incomplete sentences. Any formal questions or concerns about the content, text or information contained within the body of this dictation should be directly addressed to the provider for clarification. (Mariaa Covarrubias ., NADEEM) Attending Attestation: Pt seen/examined, chart reviewed, care plan d/w PEDRO Covarrubias. I agree w/ the arzate components of her documentation. Pt feels better. Less abd pain. No nausea or emesis. No stool. VSS no fever gen - thin but NAD eyes - icterus mouth - MMM heart - RRR lungs - CTA b/l abd - minimal tenderness epigastric region, BS+, no HSM lipase 500s lfts improved Hb mid 9's A/P: 1. acute gallstone pancreatitis - improved 2. cholecystitis 2nd to heme gallstones 3. sickle cell disease variant 4. acute/chronic anemia 5. hypoglycemia add dextrose due to #5 clear liquids ok to lower fluid rate to 200/hr labs in AM plan for OR on for lap colby cont IV abx in meantime Nicolas QUIROZ MD (Juan Quiroz MD)
[2017-01-19 14:54] VITALS: BP 117/75; PULSE 98; TEMP 36.7; O2SAT 96
[2017-01-19 15:30] VITALS: O2SAT 96
[2017-01-19] MEDS ORDERED: MAGNESIUM OXIDE 400 MG TAB PO ONE (15:45)
[2017-01-19 23:01] VITALS: BP 100/63; PULSE 67; TEMP 36.5; O2SAT 98
[2017-01-20] MEDS: D5W AND LACTATED RINGERS 1,000 ML IV SCH ×3 (01:11→11:08)
[2017-01-20] MEDS: MoRPHine SULFATE 2 MG/ML CARP IV PRN ×2 (01:12→12:23)
[2017-01-20] MEDS: PIPERACILL/TAZOBAC IV 3.375 GM in DEXTROSE 5% 100ML 100 ML IV SCH ×3 (04:05→19:50)
[2017-01-20 06:17] LABS: BASO % 0.8 %; BASO ABS # 0.03 K/uL (0-0.2); EOS % 6.7 %; LYMPH % 39.4 %; LYMPH ABS # 1.53 K/uL (1.2-3.4); MEAN CELL VOLUME 69.3 fL (80-100); MEAN CORPUSCULAR HEMOGLOBIN 25.1 pg (25-34); MEAN CORPUSCULAR HGB CONC 36.2 g/dl (32-36); MEAN PLATELET VOLUME 10.7 fL (7.4-10.4); MONO % 16.2 %; NEUT % 36.9 %; PLATELET COUNT 204 K/uL (130-400); RED BLOOD COUNT 3.75 M/uL (4.7-6.1); WHITE BLOOD COUNT 3.88 K/uL (4.8-10.8)
--- NOTE | 2017-01-20 06:35 | Surgery Progress Note ---
Surgery Progress Note Date of Service Jan 20, 2017. Subjective No nausea, No vomiting Very little pain Objective Vital Signs: Date Time Temp Pulse Resp B/P Pulse Ox O2 Delivery O2 Flow Rate FiO2 01/19/17 23:38 Room Air 01/19/17 23:01 36.5 67 14 100/63 98 Room Air 01/19/17 15:30 96 Room Air 01/19/17 14:54 36.7 98 18 117/75 96 Room Air 01/19/17 08:15 Room Air 01/19/17 07:55 36.8 74 16 111/74 93 Room Air Abdomen: normal bowel sounds, non distended, soft, + tenderness (minimal) Laboratory Results: Results Past 24 Hours Test 01/19/17 06:37 01/20/17 05:10 Range/Units White Blood Count 6.12 3.88 4.8-10.8 K/uL Red Blood Count 3.68 3.75 4.7-6.1 M/uL Hemoglobin 9.3 9.4 14.0-18.0 g/dL Hematocrit 25.6 26.0 42-52 % Mean Corpuscular Volume 69.6 69.3 80-100 fL Mean Corpuscular Hemoglobin 25.3 25.1 25-34 pg Mean Corpuscular Hemoglobin Concent 36.3 36.2 32-36 g/dl Platelet Count 175 204 130-400 K/uL Neutrophils (%) (Auto) 50.5 36.9 % Lymphocytes (%) (Auto) 29.9 39.4 % Monocytes (%) (Auto) 14.5 16.2 % Eosinophils (%) (Auto) 4.4 6.7 % Basophils (%) (Auto) 0.5 0.8 % Neutrophils # (Auto) 3.09 1.43 1.4-6.5 K/uL Lymphocytes # (Auto) 1.83 1.53 1.2-3.4 K/uL Monocytes # (Auto) 0.89 0.63 0.11-0.59 K/uL Eosinophils # (Auto) 0.27 0.26 0-0.5 K/uL Basophils # (Auto) 0.03 0.03 0-0.2 K/uL RDW Standard Deviation 39.1 38.8 36.4-46.3 fL RDW Coefficient of Variation 15.6 15.5 11.5-14.5 % Immature Granulocyte % (Auto) 0.2 0.0 % Immature Granulocyte # (Auto) 0.01 0.00 0.00-0.02 K/uL Large Platelets 1+ Polychromasia 1+ Microcytosis PRESENT Target Cells 2+ Prothrombin Time 12.0 9.0-12.0 SECONDS Prothromb Time International Ratio 1.1 0.9-1.1 Activated Partial Thromboplast Time 33.9 21.0-31.0 SECONDS Partial Thromboplastin Ratio 1.3 Sodium Level 139 136-145 mmol/L Potassium Level 3.7 3.5-5.1 mmol/L Chloride Level 101 98-107 mmol/L Carbon Dioxide Level 32 21-32 mmol/L Anion Gap 6.0 3-11 mmol/L Blood Urea Nitrogen 4 7-18 mg/dl Creatinine 0.49 0.60-1.40 mg/dl Est Creatinine Clear Calc Drug Dose 166.3 ml/min Estimated GFR () > 150.0 Estimated GFR (Non- > 150.0 BUN/Creatinine Ratio 7.1 10-20 Random Glucose 64 70-99 mg/dl Calcium Level 8.6 8.5-10.1 mg/dl Magnesium Level 1.7 1.8-2.4 mg/dl Total Bilirubin 4.3 0.2-1 mg/dl Direct Bilirubin 1.6 0-0.2 mg/dl Aspartate Amino Transf (AST/SGOT) 28 15-37 U/L Alanine Aminotransferase (ALT/SGPT) 57 12-78 U/L Alkaline Phosphatase 62 45-117 U/L Total Protein 6.6 6.4-8.2 gm/dl Albumin 3.3 3.4-5.0 gm/dl Amylase Level 89 25-115 U/L Lipase 595 73-393 U/L Mean Platelet Volume 10.7 7.4-10.4 fL Assessment & Plan Pancreatitis secondary to gallstones Pancreatitis resolving Today's labs pending Planning laparoscopic cholecystectomy with cholangiogram tomorrow Yesterday, I discussed the procedure with the patient. I discussed the possible need to convert to an open procedure and the possible complications. He has signed a consent form.
[2017-01-20 06:50] LABS: ALT/SGPT 49 U/L (12-78); BLOOD UREA NITROGEN 2 mg/dl (7-18); BUN/CREATININE RATIO 3.2 (10-20); CALCIUM 8.7 mg/dl (8.5-10.1); CARBON DIOXIDE 30 mmol/L (21-32); CHLORIDE 105 mmol/L (98-107); GLUCOSE 146 mg/dl (70-99); MAGNESIUM 1.7 mg/dl (1.8-2.4); POTASSIUM 3.6 mmol/L (3.5-5.1); SODIUM 142 mmol/L (136-145)
[2017-01-20 06:55] LABS: COMPLETE YES; LARGE PLATELETS 3+; MICROCYTOSIS PRESENT; TARGET CELLS 2+
[2017-01-20 06:56] LABS: ALKALINE PHOSPHATASE 58 U/L (45-117); AST/SGOT 22 U/L (15-37)
[2017-01-20 07:02] VITALS: BP 99/63; PULSE 59; TEMP 36.8; O2SAT 98
[2017-01-20] MEDS ORDERED: MAGNESIUM OXIDE 400 MG TAB PO SCH (09:00)
[2017-01-20] MEDS: PANTOprazole INJ 40 MG in SYRINGE 0 ML IV SCH (11:01)
--- NOTE | 2017-01-20 11:53 | Hospitalist Progress Note ---
Hospitalist Progress Note Date of Service Jan 20, 2017. (Mariaa Covarrubias ., ALAINAC) Subjective Pt evaluation today including: conversation w/ patient, physical exam, chart review, lab review, review of inpatient medication list Pain: None PO Intake: Tolerating clear liquids Voiding: no voiding problems Patient reports feeling well. He states that when he woke up this morning, he did have some mild abdominal pain as well as nausea. After having a bowel movement earlier this morning, his symptoms resolved. He is tolerating a clear liquid diet well. At this point. He denies any abdominal pain or nausea, weakness or fatigue. The patient denies fevers, chills, sweats, chest pain, palpitations, claudication, cough, wheezing, shortness of breath, nausea, vomiting, abdominal pain, dysuria, hematuria, urinary retention, paralysis, weakness, numbness and tingling. Additional Comments: See HPI for pertinent positives and negatives. All other systems reviewed and negative. (Mariaa Covarrubias, PEDRO-C) Objective Vital Signs Date Time Temp Pulse Resp B/P Pulse Ox O2 Delivery O2 Flow Rate FiO2 01/20/17 07:30 Room Air 01/20/17 07:02 36.8 59 16 99/63 98 Room Air 01/19/17 23:38 Room Air 01/19/17 23:01 36.5 67 14 100/63 98 Room Air 01/19/17 15:30 96 Room Air 01/19/17 14:54 36.7 98 18 117/75 96 Room Air (Mariaa Covarrubias, PEDRO-C) Physical Exam General Appearance: WD/WN, no apparent distress, + thin Eyes: PERRL, EOMI, + pertinent finding (icterus improving) ENT: normal ENT inspection, hearing grossly normal, pharynx normal Neck: supple, no JVD, trachea midline Respiratory/Chest: lungs clear, normal breath sounds, no respiratory distress Cardiovascular: regular rate, rhythm, no gallop, no murmur Abdomen: normal bowel sounds, soft, + tenderness (mild diffuse abdominal tenderness with palpation only) Extremities: non-tender, normal inspection, no pedal edema Neurologic/Psychiatric: alert, normal mood/affect, oriented x 3 Skin: normal color, warm/dry, no rash (Mariaa Covarrubias ., PEDRO-C) Laboratory Results Last 24 Hours Test 01/20/17 05:10 White Blood Count 3.88 K/uL Red Blood Count 3.75 M/uL Hemoglobin 9.4 g/dL Hematocrit 26.0 % Mean Corpuscular Volume 69.3 fL Mean Corpuscular Hemoglobin 25.1 pg Mean Corpuscular Hemoglobin Concent 36.2 g/dl Platelet Count 204 K/uL Mean Platelet Volume 10.7 fL Neutrophils (%) (Auto) 36.9 % Lymphocytes (%) (Auto) 39.4 % Monocytes (%) (Auto) 16.2 % Eosinophils (%) (Auto) 6.7 % Basophils (%) (Auto) 0.8 % Neutrophils # (Auto) 1.43 K/uL Lymphocytes # (Auto) 1.53 K/uL Monocytes # (Auto) 0.63 K/uL Eosinophils # (Auto) 0.26 K/uL Basophils # (Auto) 0.03 K/uL RDW Standard Deviation 38.8 fL RDW Coefficient of Variation 15.5 % Immature Granulocyte % (Auto) 0.0 % Immature Granulocyte # (Auto) 0.00 K/uL Large Platelets 3+ Microcytosis PRESENT Target Cells 2+ Sodium Level 142 mmol/L Potassium Level 3.6 mmol/L Chloride Level 105 mmol/L Carbon Dioxide Level 30 mmol/L Anion Gap 7.0 mmol/L Blood Urea Nitrogen 2 mg/dl Creatinine 0.50 mg/dl Est Creatinine Clear Calc Drug Dose 163.0 ml/min Estimated GFR () > 150.0 Estimated GFR (Non- > 150.0 BUN/Creatinine Ratio 3.2 Random Glucose 146 mg/dl Calcium Level 8.7 mg/dl Magnesium Level 1.7 mg/dl Total Bilirubin 3.4 mg/dl Direct Bilirubin 1.3 mg/dl Aspartate Amino Transf (AST/SGOT) 22 U/L Alanine Aminotransferase (ALT/SGPT) 49 U/L Alkaline Phosphatase 58 U/L Total Protein 6.8 gm/dl Albumin 3.2 gm/dl Lipase 422 U/L (Mariaa Covarrubias PA-C) Assessment and Plan 21 y/o male with a history of sickle cell anemia presents to the ED on 01/16 with abdominal pain, nausea, and vomiting. Acute gallstone pancreatitis/acute cholecystitis--improving. Pt met sepsis criteria on admission with tachycardia, WBC >12K and source of infection -Admit to [facility] -Hypoglycemia resolved, BSG 146 on 01/20. IV fluids changed to Lactated Ringer' s at 100 cc/hr -GI consulted, appreciate recs: Start clear liquid diet. Continue IVF at 250 cc/hr until 01/19. GI signed off. -Consult general surgery for cholecystectomy evaluation, appreciate recs: Planning for laparoscopic cholecystectomy with cholangiogram tomorrow, 01/21 at 13:30 -Continue IV Zosyn -Patient tolerating clear liquid diet well -Dilaudid changed to morphine per patient request -Continue nausea control with IV Zofran and Phenergan -Continue Protonix 40 mg IV qd -LFTs continued to improve. Total bilirubin 3.4 on 01/20, improved from 4.3. AST/ALT WNL. -Lipase continues to improve. Lipase 422 on 01/20, improved from 595 Hypomagnesemia--stable -Magnesium 1.4 on 01/18 -Given magnesium sulfate 1 g IV 1 -Magnesium 1.7 on 01/19 -Second bag of magnesium sulfate 1 g IV ordered, however, patient reported burning during infusion and did not complete the bag. Patient was given oral supplementation instead. -Magnesium remains at 1.7 on 01/20 -Continue oral supplementation with magnesium oxide 400 mg PO TID Sickle cell anemia--stable -Hgb stable at 9.4 on 01/20 -Hematology consulted, appreciate recs: hold hydroxyurea until surgery DVT prophylaxis -SCDs Code Status -Level I, FULL RESUSCITATION STATUS This chart was completed in part utilizing [employer] Speech Voice Recognition software. Attempts were made to minimize the grammatical errors, random word insertions, pronoun errors and incomplete sentences. Any formal questions or concerns about the content, text or information contained within the body of this dictation should be directly addressed to the provider for clarification. (Mariaa Covarrubias ., NADEEM) Attending Attestation: Pt seen/examined, chart reviewed, care plan d/w PEDRO Covarrubias. I agree w/ the arzate components of her documentation. Pt with no abd pain/nausea/emesis at time of my visit. Had loose bowel movement earlier today. No sob. VSS no fever gen - nad eyes - mild icterus heart - RRR lungs - CTA b/l abd - soft, NT, ND, BS+, no HSM ext - no edema LFTs improving lipase stable Hb mid 9's Cr normal A/P: 1. gallstone pancreatitis - resolved 2. acute cholecystitis - cont zosyn, to OR In am for lap colby; NPO after MN 3. FEN - cut fluid rate to 100cc/hr. NPO after MN; replace magnesium. 4. Sickle cell anemia/variant - H/H stable. No indication for transfusion at this time. Juan Quiroz MD (Juan Quiroz MD)
[2017-01-20] MEDS: LACTATED RINGER'S 1000ML 1,000 ML IV SCH ×2 (12:11→22:17)
[2017-01-20] MEDS: MAGNESIUM OXIDE 400 MG TAB PO SCH ×2 (14:37→21:32)
[2017-01-20 14:57] VITALS: BP 113/71; PULSE 102; TEMP 36.7; O2SAT 96
--- NOTE | 2017-01-20 19:47 | Anesthesiology Progress Note ---
Pre-OP Anesthesia Assessment Date of Note Jan 20, 2017. Review patient information reviewed, chart reviewed, labs reviewed, acceptable for surgery Notes The patients only medical problem is sickle cell anemia. He had a painful crisis in October of this year and has had no serious complications yet. Otherwise he is healthy and denies all other medical problems. He is thin and has an airway that is between a MP 2-3. He is acceptable for anesthesia and surgery tomorrow.
[2017-01-21] VITALS (9 sets, daily range): BP systolic 109–144; BP diastolic 63–85; PULSE 52–92; TEMP 36.4–36.7; O2SAT 91–100
[2017-01-21] MEDS: PIPERACILL/TAZOBAC IV 3.375 GM in DEXTROSE 5% 100ML 100 ML IV SCH ×3 (03:37→19:35)
[2017-01-21 07:07] LABS: BASO % 0.8 %; BASO ABS # 0.03 K/uL (0-0.2); COMPLETE YES; EOS % 6.4 %; HEMATOCRIT 28.2 % (42-52); LYMPH % 40.8 %; LYMPH ABS # 1.52 K/uL (1.2-3.4); MEAN CELL VOLUME 70.5 fL (80-100); MEAN CORPUSCULAR HGB CONC 35.5 g/dl (32-36); MEAN PLATELET VOLUME 10.9 fL (7.4-10.4); MONO % 18.5 %; NEUT % 33.5 %; PLATELET COUNT 242 K/uL (130-400); WHITE BLOOD COUNT 3.73 K/uL (4.8-10.8)
[2017-01-21] MEDS: LACTATED RINGER'S 1000ML 1,000 ML IV SCH ×2 (07:33→17:45)
[2017-01-21 07:39] LABS: ALT/SGPT 47 U/L (12-78); AST/SGOT 19 U/L (15-37); BLOOD UREA NITROGEN 3 mg/dl (7-18); BUN/CREATININE RATIO 5.3 (10-20); CALCIUM 8.8 mg/dl (8.5-10.1); CARBON DIOXIDE 30 mmol/L (21-32); CHLORIDE 106 mmol/L (98-107); CREATININE 0.55 mg/dl (0.60-1.40); GLUCOSE 83 mg/dl (70-99); POTASSIUM 3.8 mmol/L (3.5-5.1); SODIUM 141 mmol/L (136-145)
[2017-01-21 07:42] LABS: ALKALINE PHOSPHATASE 57 U/L (45-117)
[2017-01-21] MEDS: MAGNESIUM OXIDE 400 MG TAB PO SCH ×3 (10:08→21:53)
--- NOTE | 2017-01-21 10:09 | Hospitalist Progress Note ---
Hospitalist Progress Note Date of Service Jan 21, 2017. (Mariaa Covarrubias, ALAINAC) Subjective Pt evaluation today including: conversation w/ patient, physical exam, chart review, lab review, review of inpatient medication list Pain: None PO Intake: NPO for surgery today Voiding: no voiding problems Patient reports feeling well. He denies any abdominal pain, nausea, or vomiting. He is currently NPO for his lap cholecystectomy later today. The patient denies fevers, chills, sweats, chest pain, palpitations, claudication, cough, wheezing, shortness of breath, nausea, vomiting, abdominal pain, dysuria , hematuria, urinary retention, paralysis, weakness, numbness and tingling. Additional Comments: See HPI for pertinent positives and negatives. All other systems reviewed and negative. (Mariaa Covarrubias PA-C) Objective Vital Signs Date Time Temp Pulse Resp B/P Pulse Ox O2 Delivery O2 Flow Rate FiO2 01/21/17 08:11 36.4 70 19 110/63 100 Room Air 01/21/17 07:35 Room Air 01/21/17 00:04 36.5 73 16 109/66 96 Room Air 01/20/17 23:15 Room Air 01/20/17 20:00 Room Air 01/20/17 16:50 Room Air 01/20/17 14:57 36.7 102 16 113/71 96 Room Air (aMriaa Covarrubias ., PA-C) Physical Exam General Appearance: WD/WN, no apparent distress, + thin Eyes: normal inspection, PERRL, EOMI, + pertinent finding (icterus improving) ENT: normal ENT inspection, hearing grossly normal, pharynx normal Neck: supple, no JVD, trachea midline Respiratory/Chest: lungs clear, normal breath sounds, no respiratory distress Cardiovascular: regular rate, rhythm, no gallop, no murmur Abdomen: normal bowel sounds, soft, + tenderness (LLQ mildly TTP) Extremities: non-tender, normal inspection, no pedal edema Neurologic/Psychiatric: alert, normal mood/affect, oriented x 3 Skin: normal color, warm/dry, no rash (Mariaa Covarrubias, PEDRO-C) Laboratory Results Last 24 Hours Test 01/21/17 06:36 White Blood Count 3.73 K/uL Red Blood Count 4.00 M/uL Hemoglobin 10.0 g/dL Hematocrit 28.2 % Mean Corpuscular Volume 70.5 fL Mean Corpuscular Hemoglobin 25.0 pg Mean Corpuscular Hemoglobin Concent 35.5 g/dl Platelet Count 242 K/uL Mean Platelet Volume 10.9 fL Neutrophils (%) (Auto) 33.5 % Lymphocytes (%) (Auto) 40.8 % Monocytes (%) (Auto) 18.5 % Eosinophils (%) (Auto) 6.4 % Basophils (%) (Auto) 0.8 % Neutrophils # (Auto) 1.25 K/uL Lymphocytes # (Auto) 1.52 K/uL Monocytes # (Auto) 0.69 K/uL Eosinophils # (Auto) 0.24 K/uL Basophils # (Auto) 0.03 K/uL RDW Standard Deviation 40.6 fL RDW Coefficient of Variation 15.7 % Immature Granulocyte % (Auto) 0.0 % Immature Granulocyte # (Auto) 0.00 K/uL Sodium Level 141 mmol/L Potassium Level 3.8 mmol/L Chloride Level 106 mmol/L Carbon Dioxide Level 30 mmol/L Anion Gap 5.0 mmol/L Blood Urea Nitrogen 3 mg/dl Creatinine 0.55 mg/dl Est Creatinine Clear Calc Drug Dose 148.2 ml/min Estimated GFR () > 150.0 Estimated GFR (Non- > 150.0 BUN/Creatinine Ratio 5.3 Random Glucose 83 mg/dl Calcium Level 8.8 mg/dl Total Bilirubin 3.5 mg/dl Direct Bilirubin 1.4 mg/dl Aspartate Amino Transf (AST/SGOT) 19 U/L Alanine Aminotransferase (ALT/SGPT) 47 U/L Alkaline Phosphatase 57 U/L Total Protein 7.2 gm/dl Albumin 3.6 gm/dl Lipase 745 U/L (Mariaa Covarrubias, ALAINAC) Assessment and Plan 21 y/o male with a history of sickle cell anemia presents to the ED on 01/16 with abdominal pain, nausea, and vomiting. Acute gallstone pancreatitis/acute cholecystitis--improving. Pt met sepsis criteria on admission with tachycardia, WBC >12K and source of infection -Admit to MedSurg -Hypoglycemia resolved, BSG 146 on 01/20. IV fluids changed to Lactated Ringer' s at 100 cc/hr -GI consulted, appreciate recs: Start clear liquid diet. Continue IVF at 250 cc/hr until 01/19. GI signed off. -Consult general surgery for cholecystectomy evaluation, appreciate recs: Planning for laparoscopic cholecystectomy with cholangiogram on 01/21 at 13:30 -NPO after midnight -Continue IV Zosyn -Patient tolerating clear liquid diet well -Dilaudid changed to morphine per patient request -Continue nausea control with IV Zofran and Phenergan -Continue Protonix 40 mg IV qd -LFTs stable, very minimal changed compared to 01/20 -Lipase increased to 745 on 01/21, up from 422. Pt clinically doing well though and LFTs stable as above Hypomagnesemia--resolved -Magnesium 1.4 on 01/18 -Given magnesium sulfate 1 g IV 1 -Magnesium 1.7 on 01/19 -Second bag of magnesium sulfate 1 g IV ordered, however, patient reported burning during infusion and did not complete the bag. Patient was given oral supplementation instead. -Magnesium remains at 1.7 on 01/20 -Magnesium oxide 400 mg PO TID -Repeat magnesium on 01/21 at 2.0 Sickle cell anemia--stable -Hgb improved on 01/21 to 10.0 -Hematology consulted, appreciate recs: hold hydroxyurea until surgery DVT prophylaxis -SCDs Code Status -Level I, FULL RESUSCITATION STATUS This chart was completed in part utilizing [employer] Speech Voice Recognition software. Attempts were made to minimize the grammatical errors, random word insertions, pronoun errors and incomplete sentences. Any formal questions or concerns about the content, text or information contained within the body of this dictation should be directly addressed to the provider for clarification. (Mariaa Covarrubias ., PA-C) Attending Attestation: Pt seen/examined, chart reviewed, care plan d/w PEDRO Covarrubias. I agree w/ the arzate components of her documentation. I saw the patient post-op from lap colby. He c/o abdominal pain but o/w no sob. VSS no fever gen - mild distress from abd pain eyes - mild icterus heart - RRR lungs - CTA b/l abd - BS+, incisions clean, mild tenderness over incisions ext - no edema LFTs improving lipase 700s Hb 10 A/P: 1. gallstone pancreatitis - resolved 2. acute cholecystitis - s/p lap colby today. can likely d/c abx. no CBD stone seen on cholangiogram. 3. FEN - cont fluids at 100cc/hr. Diet per surgery. Mag is now normal. 4. Sickle cell anemia/variant - H/H stable. No indication for transfusion at this time. Juan Quiroz MD (Juan Quiroz MD)
--- NOTE | 2017-01-21 11:11 | Surgery Progress Note ---
Surgery Progress Note Date of Service Jan 21, 2017. Subjective Post OP Day: HD # 4 + bowel movement, + diet (no diet as of this morning), + feeling well, + flatus , + pain controlled, No SOB, No chest pain, No complaints, No nausea, No vomiting Objective Vital Signs: Date Time Temp Pulse Resp B/P Pulse Ox O2 Delivery O2 Flow Rate FiO2 01/21/17 08:11 36.4 70 19 110/63 100 Room Air 01/21/17 07:35 Room Air 01/21/17 00:04 36.5 73 16 109/66 96 Room Air 01/20/17 23:15 Room Air 01/20/17 20:00 Room Air 01/20/17 16:50 Room Air 01/20/17 14:57 36.7 102 16 113/71 96 Room Air General Appearance: WD/WN, no apparent distress Head: normocephalic, atraumatic, + pertinent finding (sclear slightly yellow) Neck: trachea midline Respiratory/Chest: lungs clear, normal breath sounds, no respiratory distress, no accessory muscle use Cardiovascular: regular rate, rhythm, no murmur Abdomen: non tender, non distended, soft, no organomegaly Extremities: normal inspection Laboratory Results: Results Past 24 Hours Test 01/21/17 06:36 Range/Units White Blood Count 3.73 4.8-10.8 K/uL Red Blood Count 4.00 4.7-6.1 M/uL Hemoglobin 10.0 14.0-18.0 g/dL Hematocrit 28.2 42-52 % Mean Corpuscular Volume 70.5 80-100 fL Mean Corpuscular Hemoglobin 25.0 25-34 pg Mean Corpuscular Hemoglobin Concent 35.5 32-36 g/dl Platelet Count 242 130-400 K/uL Mean Platelet Volume 10.9 7.4-10.4 fL Neutrophils (%) (Auto) 33.5 % Lymphocytes (%) (Auto) 40.8 % Monocytes (%) (Auto) 18.5 % Eosinophils (%) (Auto) 6.4 % Basophils (%) (Auto) 0.8 % Neutrophils # (Auto) 1.25 1.4-6.5 K/uL Lymphocytes # (Auto) 1.52 1.2-3.4 K/uL Monocytes # (Auto) 0.69 0.11-0.59 K/uL Eosinophils # (Auto) 0.24 0-0.5 K/uL Basophils # (Auto) 0.03 0-0.2 K/uL RDW Standard Deviation 40.6 36.4-46.3 fL RDW Coefficient of Variation 15.7 11.5-14.5 % Immature Granulocyte % (Auto) 0.0 % Immature Granulocyte # (Auto) 0.00 0.00-0.02 K/uL Sodium Level 141 136-145 mmol/L Potassium Level 3.8 3.5-5.1 mmol/L Chloride Level 106 98-107 mmol/L Carbon Dioxide Level 30 21-32 mmol/L Anion Gap 5.0 3-11 mmol/L Blood Urea Nitrogen 3 7-18 mg/dl Creatinine 0.55 0.60-1.40 mg/dl Est Creatinine Clear Calc Drug Dose 148.2 ml/min Estimated GFR () > 150.0 Estimated GFR (Non- > 150.0 BUN/Creatinine Ratio 5.3 10-20 Random Glucose 83 70-99 mg/dl Calcium Level 8.8 8.5-10.1 mg/dl Magnesium Level 2.0 1.8-2.4 mg/dl Total Bilirubin 3.5 0.2-1 mg/dl Direct Bilirubin 1.4 0-0.2 mg/dl Aspartate Amino Transf (AST/SGOT) 19 15-37 U/L Alanine Aminotransferase (ALT/SGPT) 47 12-78 U/L Alkaline Phosphatase 57 45-117 U/L Total Protein 7.2 6.4-8.2 gm/dl Albumin 3.6 3.4-5.0 gm/dl Lipase 745 73-393 U/L Assessment & Plan Acute Gallstone Pancreatitis - vital signs stable - Abdominal pain improving and minimal and controlled with Dilaudid - tolerating clear liquids - + bowel function - Total bilirubin 3.5 (slight increase from yesterday at 3.4), Direct bili- 1.4 (slight increase from yesterday 1.3) , and Lipase 745 (increase from yesterday 422) Plan: Currently NPO for Laparoscopic cholecystectomy and cholangiogram today at 1:30 pm. Continue current IV fluids, and pain management
[2017-01-21] MEDS: PANTOprazole INJ 40 MG in SYRINGE 0 ML IV SCH (11:36)
[2017-01-21] MEDS ORDERED: MIDAZOLAM HCL 1 MG/ML 2ML VIAL ONE (12:49)
[2017-01-21] MEDS ORDERED: FENTANYL CITRATE INJ 50 MCG/1 ML 2 ML VIAL ONE ×3 (12:49→15:59)
[2017-01-21] MEDS ORDERED: CEFAZOLIN SOD 1 GM VIAL ONE (13:44)
[2017-01-21] MEDS ORDERED: BUPIVACAINE 0.5 % 5 MG/1 ML MPF 30ML VIAL ONE (13:44)
[2017-01-21] MEDS ORDERED: CONRAY 60% 50 ML VIAL ONE (13:44)
[2017-01-21] MEDS ORDERED: HEPARIN SOD (PORCINE) 1000 UNIT/ML 10 ML VIAL ONE (13:44)
[2017-01-21] MEDS ORDERED: ONDANSETRON INJ 2 MG/ML 2 ML VIAL IV PRN (13:45)
[2017-01-21] MEDS ORDERED: EpHEDrine SULFATE INJ 50 MG/ML AMP IV PRN (13:45)
[2017-01-21] MEDS ORDERED: HYDROmorphone INJ 2 MG/ML SYR/VIAL IV PRN (13:45)
[2017-01-21] MEDS ORDERED: MEPERIDINE HCL 25 MG/ML CARP IV PRN (13:45)
[2017-01-21] MEDS ORDERED: LABETALOL HCL IV 5 MG/ML 20ML IV PRN ×2 (13:45→14:00)
[2017-01-21] MEDS ORDERED: FLUMAZENIL 0.1 MG/1 ML 10 ML VIAL IV PRN (13:45)
[2017-01-21] MEDS ORDERED: NALOXONE HCL 0.4 MG/1 ML VIAL/CARP IV PRN (13:45)
[2017-01-21] MEDS ORDERED: PHENYLEPHRINE 100MCG/ML 5ML SYR IV PRN (13:45)
[2017-01-21] MEDS ORDERED: ATROPINE SULFATE 0.1 MG/ML 5ML SYR IV PRN (13:45)
[2017-01-21] MEDS ORDERED: ONDANSETRON INJ 2 MG/ML 2 ML VIAL ONE (14:50)
[2017-01-21] MEDS ORDERED: DEXAMETHASONE SOD INJ 4 MG/ML VIAL ONE (14:50)
[2017-01-21] MEDS ORDERED: ESMOLOL HCL 10 MG/ML 10 ML VIAL ONE (14:50)
[2017-01-21] MEDS ORDERED: ROCURONIUM BROMIDE 10 MG/ML 5 ML VIAL ONE (14:50)
[2017-01-21] MEDS ORDERED: LIDOCAINE HCL 2% 2 ML VIAL (20MG/ML) ONE (14:50)
[2017-01-21] MEDS ORDERED: PROPOFOL IV EMULSION 10 MG/ML 20 ML VIAL IV ONE ×2 (14:50→15:23)
[2017-01-21] MEDS ORDERED: GLYCOPYRROLATE INJ 0.2 MG/ML VIAL ONE (14:55)
[2017-01-21] MEDS ORDERED: NEOSTIGMINE METHYLSULFATE 5 MG/5 ML SYR ONE (14:55)
--- NOTE | 2017-01-21 14:56 | DIAGNOSTIC IMAGING REPORT ---
INTRAOPERATIVE CHOLANGIOGRAM HISTORY: Post cholecystectomy. FLUOROSCOPY TIME: 23 seconds. FINDINGS: Fluoroscopy was provided for an intraoperative cholangiogram status post cholecystectomy. Contrast was injected through the cystic duct remnant. The common bile duct is normal in course and caliber. There are no filling defects seen within the common bile duct to suggest a retained stone. Contrast extends into the small bowel. There is no intrahepatic bile duct dilatation. IMPRESSION: Fluoroscopy provided for an intraoperative cholangiogram status post cholecystectomy. No filling defects within the common bile duct. Good flow contrast to the duodenum. Electronically signed by: Jama Saldivar M.D. 01/21/2017 2:55 PM Dictated Date/Time: 01/21/2017 2:54 PM
--- NOTE | 2017-01-21 15:31 | [facility] Post Operative Brief Note ---
Immediate Operative Summary Operative Date Jan 21, 2017. Pre-Operative Diagnosis acute gallstone pancreatitis Post-Operative Diagnosis acute gallstone pancreatitis Procedure(s) Performed Laparoscopic Cholecystectomy with Cholangiogram Surgeon Dr. Jama Betancur Auto Job Estimator Surgeon(s) Linda Andrade PA-C Estimated Blood Loss 5cc Findings See dictation Specimens A. gallbladder Drains None Anesthesia General Complication(s) None Disposition Recovery Room / PACU
[2017-01-21] MEDS: FENTANYL CITRATE INJ 50 MCG/1 ML 2 ML VIAL IV PRN ×2 (15:46→15:51)
[2017-01-21] MEDS ORDERED: KETOROLAC TROMETHAMINE 15 MG/ML VIAL IV. STA (15:53)
[2017-01-21] MEDS ORDERED: KETOROLAC TROMETHAMINE 30 MG/ML VIAL ONE (15:59)
--- NOTE | 2017-01-21 16:10 | Anesthesiology Progress Note ---
Anesthesia Post Op Note Date & Time Jan 21, 2017 at 16:10 Vital Signs Pain Intensity: 3 Vital Signs Past 12 Hours Date Time Temp Pulse Resp B/P Pulse Ox O2 Delivery O2 Flow Rate FiO2 01/21/17 16:00 64 16 153/90 100 Nasal Cannula 3 01/21/17 15:50 58 16 158/95 100 Mask 10 01/21/17 15:40 67 16 154/91 100 Mask 10 01/21/17 15:33 36.6 76 16 133/81 100 Mask 10 01/21/17 08:11 36.4 70 19 110/63 100 Room Air 01/21/17 07:35 Room Air Notes Mental Status: alert / awake / arousable, participated in evaluation Pt Amnestic to Procedure: Yes Nausea / Vomiting: adequately controlled Pain: adequately controlled Airway Patency, RR, SpO2: stable & adequate BP & HR: stable & adequate Hydration State: stable & adequate Anesthetic Complications: no major complications apparent
[2017-01-21] MEDS: MoRPHine SULFATE 2 MG/ML CARP IV PRN (17:46)
[2017-01-22 00:05] VITALS: PULSE 55; O2SAT 100
[2017-01-22] MEDS: MoRPHine SULFATE 2 MG/ML CARP IV PRN (00:09)
[2017-01-22 01:00] VITALS: PULSE 60
--- NOTE | 2017-01-22 01:35 | OPERATIVE REPORT ---
DATE OF OPERATION: 01/21/2017 PREOPERATIVE DIAGNOSIS: Cholelithiasis, gallbladder sludge with history of pancreatitis. POSTOPERATIVE DIAGNOSIS: Same. PROCEDURE: Laparoscopic cholecystectomy with intraoperative cholangiogram. SURGEON: Dr. Betancur. DIVERSIONAL THERAPIST: Faye Andrade PA-C. FINDINGS: The gallbladder was of normal size. The cystic duct was not dilated. The liver was of normal size and contour. The visible bowel appeared normal. The cholangiogram was performed. There was free flow into the duodenum. There was flow into the radicles. There was no evidence of filling defect. TECHNIQUE: The patient was given a general anesthetic and the area was prepped and draped in the usual sterile fashion. Transverse incision was made below the umbilicus, carried down through the subcutaneous tissue to the fascia which was grasped with 2 Ondina clamps and incised between. The peritoneum was identified, incised, and the introducer was placed bluntly. The abdomen was then insufflated to a pressure of 15 mmHg with carbon dioxide. The upper midline, mid clavicular, and anterior axillary introducers were placed under direct vision through small skin incisions. Traction was placed on the gallbladder, and beginning on the lateral side of the infundibulum, the peritoneum was opened and peeled down toward the common bile duct. The infundibulum was dissected away from the liver on that side. Further dissection was carried similarly on the anterior surface of the infundibulum and into the triangle of Calot which was opened. The infundibulum was dissected away from the infundibulum on the medial side. Further dissection of connective tissue and lymphatics were peeled toward the common bile duct and the cystic duct was identified. A plane was able to be established behind the cystic duct by performing further dissection. The cystic duct-gallbladder junction was confirmed. A clip was placed near the cystic duct-gallbladder junction and the cystic duct was partially transected. The cholangiocatheter was placed in the duct and the balloon was inflated. It was irrigated, there was no leak. Cholangiogram was performed with findings as above. Cholangiocatheter was removed and 3 clips were placed in the proximal cystic duct and transection was completed. That allowed me to visualize easily the cystic artery, isolated, clamped twice proximally and once near the gallbladder and divided. The gallbladder was peeled off the liver bed, and in doing so, there was a posterior branch of the artery that was identified in 2 places. It was clamped, divided, and the division of the attachments of the gallbladder to the liver were taken down and the gallbladder was freed. It was placed into an Endobag and brought out through the upper midline incision. The introducer was replaced and the liver edge was elevated. The subdiaphragmatic and subhepatic spaces were irrigated and the irrigation removed and that was repeated until the return was clear. The gallbladder bed of the liver was inspected and there was no bleeding. The previously placed clips were inspected and were intact. The gas was allowed to escape and the introducers were removed. The fascia of the umbilical introducer site and the upper midline introducer sites were closed with interrupted 0 Vicryl and skin of all the incisions was closed with 4-0 Monocryl in either an interrupted or running subcuticular fashion. The skin was cleansed, dried, benzoin placed and Steri-Strips applied. The estimated blood loss was 5 mL. Sponge, needle and instrument counts were correct prior to closure. The patient tolerated surgical procedure without complication and was transferred to recovery. I attest to the content of the Intraoperative Record and any orders documented therein. Any exceptio ns are noted below.
[2017-01-22 03:05] VITALS: BP 102/51; PULSE 51; TEMP 36.6; O2SAT 99
[2017-01-22] MEDS: PIPERACILL/TAZOBAC IV 3.375 GM in DEXTROSE 5% 100ML 100 ML IV SCH (03:44)
[2017-01-22] MEDS: LACTATED RINGER'S 1000ML 1,000 ML IV SCH ×2 (03:44→13:24)
[2017-01-22 06:25] LABS: BASO % 0.2 %; BASO ABS # 0.01 K/uL (0-0.2); EOS % 0.3 %; HEMATOCRIT 26.3 % (42-52); IG% 0.2 %; LYMPH % 28.6 %; LYMPH ABS # 1.64 K/uL (1.2-3.4); MEAN CELL VOLUME 69.6 fL (80-100); MEAN CORPUSCULAR HEMOGLOBIN 25.1 pg (25-34); MEAN CORPUSCULAR HGB CONC 36.1 g/dl (32-36); MONO % 14.1 %; NEUT % 56.6 %; PLATELET COUNT 228 K/uL (130-400); RED BLOOD COUNT 3.78 M/uL (4.7-6.1); WHITE BLOOD COUNT 5.73 K/uL (4.8-10.8)
[2017-01-22 06:57] VITALS: BP 99/57; PULSE 53; TEMP 36.5; O2SAT 100
[2017-01-22 06:57] LABS: ALT/SGPT 43 U/L (12-78); AST/SGOT 28 U/L (15-37); BLOOD UREA NITROGEN 5 mg/dl (7-18); BUN/CREATININE RATIO 9.3 (10-20); CALCIUM 8.5 mg/dl (8.5-10.1); CARBON DIOXIDE 27 mmol/L (21-32); CHLORIDE 103 mmol/L (98-107); CREATININE 0.57 mg/dl (0.60-1.40); GLUCOSE 102 mg/dl (70-99); MAGNESIUM 1.9 mg/dl (1.8-2.4); SODIUM 138 mmol/L (136-145)
[2017-01-22 07:26] LABS: ALKALINE PHOSPHATASE 53 U/L (45-117)
[2017-01-22 07:48] LABS: COMPLETE YES; MICROCYTOSIS PRESENT; TARGET CELLS 2+
--- NOTE | 2017-01-22 08:15 | HEME/ONC PROGRESS NOTE ---
DATE: 01/22/2017 DATE: 01/22/2017. DIAGNOSES: 1. Status post laparoscopic cholecystectomy. 2. Pancreatitis. 3. Cholecystitis. 4. Hemoglobin S with persistent hemoglobin. 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 Benitez. He underwent laparoscopic cholecystectomy yesterday. Today has little postoperative discomfort and has not yet commenced with a follow-up diet. Counts today reveal hemoglobin of 9.5 and hematocrit 26.3 respectively. Nursing reports no overnight issues. PHYSICAL EXAMINATION: GENERAL: He is in no acute distress. VITAL SIGNS: Temperature 36.5, pulse 53, respiration 16, blood pressure 99/57. SKIN: Without rash or lesion. HEAD, EYES, EARS, NOSE, AND THROAT: Oral mucosa without erythema or ulceration. NECK: Supple. HEART: Regular rate and rhythm. LUNGS: Clear to auscultation. ABDOMEN: Steri-Strips covering laparoscopic surgical wounds. Abdomen is otherwise firm, nondistended. No rigidity or guarding. EXTREMITIES: No clubbing, cyanosis or edema. NEUROLOGIC: Grossly intact. LABORATORY DATA: WBC count 5,730, hemoglobin 9.5, platelet count 228,000. Sodium 138, potassium 4.0, chloride 103, carbon dioxide 27, creatinine 0.57, BUN 5. IMPRESSION: 1. Postoperative day 1 status post laparoscopic cholecystectomy. 2. Acute pancreatitis. 3. Cholecystitis/choledocholithiasis. 4. Hemoglobin S with persistent hemoglobin. PLAN: Mr. Neil seems to be doing quite well postoperatively. He is anxious to resume diet. From a hematologic standpoint, his counts are stable and transfusional support not necessary at this juncture. We will make sure the patient has appropriate outpatient hematologic followup. I have nothing further to add at this juncture. Thank you again for allowing us to participate in the care of this very pleasant gentleman.
--- NOTE | 2017-01-22 08:30 | Anesthesiology Progress Note ---
Anesthesia Post Op Note Date & Time Jan 22, 2017 at 08:30 Vital Signs Vital Signs Past 12 Hours Date Time Temp Pulse Resp B/P Pulse Ox O2 Delivery O2 Flow Rate FiO2 01/22/17 06:57 36.5 53 16 99/57 100 Nasal Cannula 2.0 01/22/17 03:05 36.6 51 16 102/51 99 Nasal Cannula 2.0 01/22/17 01:00 60 01/22/17 00:05 55 100 Room Air 1.0 01/21/17 23:30 36.6 16 125/78 100 Nasal Cannula 3.0 01/21/17 23:24 52 100 Nasal Cannula 2.0 Notes Mental Status: alert / awake / arousable, participated in evaluation Pt Amnestic to Procedure: Yes Nausea / Vomiting: adequately controlled Pain: adequately controlled Airway Patency, RR, SpO2: stable & adequate BP & HR: stable & adequate Hydration State: stable & adequate Anesthetic Complications: no major complications apparent
--- NOTE | 2017-01-22 08:48 | Surgery Progress Note ---
Surgery Progress Note Date of Service Jan 22, 2017. Subjective Post OP Day: 1 + feeling well, + flatus, No SOB, No chest pain, No complaints, No nausea, No vomiting Objective Vital Signs: Date Time Temp Pulse Resp B/P Pulse Ox O2 Delivery O2 Flow Rate FiO2 01/22/17 06:57 36.5 53 16 99/57 100 Nasal Cannula 2.0 01/22/17 03:05 36.6 51 16 102/51 99 Nasal Cannula 2.0 01/22/17 01:00 60 01/22/17 00:05 55 100 Room Air 1.0 01/21/17 23:30 36.6 16 125/78 100 Nasal Cannula 3.0 01/21/17 23:24 52 100 Nasal Cannula 2.0 01/21/17 19:30 Nasal Cannula 3.0 01/21/17 19:15 36.7 60 18 119/78 100 Nasal Cannula 3.0 01/21/17 18:15 36.4 52 16 139/83 100 Nasal Cannula 3.0 01/21/17 17:15 36.6 92 16 144/82 100 Nasal Cannula 3.0 01/21/17 16:53 92 16 141/85 100 Nasal Cannula 3.0 01/21/17 16:38 Nasal Cannula 01/21/17 16:20 36.6 90 14 136/78 100 3.0 01/21/17 16:20 92 Nasal Cannula 3.0 01/21/17 16:10 36.3 60 16 158/84 100 Nasal Cannula 3 01/21/17 16:00 64 16 153/90 100 Nasal Cannula 3 01/21/17 15:50 58 16 158/95 100 Mask 10 01/21/17 15:40 67 16 154/91 100 Mask 10 01/21/17 15:33 36.6 76 16 133/81 100 Mask 10 General Appearance: WD/WN, no apparent distress Head: normocephalic, atraumatic Neck: trachea midline Respiratory/Chest: lungs clear, normal breath sounds, no respiratory distress, no accessory muscle use Cardiovascular: regular rate, rhythm, no murmur Abdomen: non distended, soft, + tenderness (appropriate post op) Incision(s): clean, dry, intact Laboratory Results: Results Past 24 Hours Test 01/22/17 05:55 Range/Units White Blood Count 5.73 4.8-10.8 K/uL Red Blood Count 3.78 4.7-6.1 M/uL Hemoglobin 9.5 14.0-18.0 g/dL Hematocrit 26.3 42-52 % Mean Corpuscular Volume 69.6 80-100 fL Mean Corpuscular Hemoglobin 25.1 25-34 pg Mean Corpuscular Hemoglobin Concent 36.1 32-36 g/dl Platelet Count 228 130-400 K/uL Neutrophils (%) (Auto) 56.6 % Lymphocytes (%) (Auto) 28.6 % Monocytes (%) (Auto) 14.1 % Eosinophils (%) (Auto) 0.3 % Basophils (%) (Auto) 0.2 % Neutrophils # (Auto) 3.24 1.4-6.5 K/uL Lymphocytes # (Auto) 1.64 1.2-3.4 K/uL Monocytes # (Auto) 0.81 0.11-0.59 K/uL Eosinophils # (Auto) 0.02 0-0.5 K/uL Basophils # (Auto) 0.01 0-0.2 K/uL RDW Standard Deviation 39.3 36.4-46.3 fL RDW Coefficient of Variation 15.6 11.5-14.5 % Immature Granulocyte % (Auto) 0.2 % Immature Granulocyte # (Auto) 0.01 0.00-0.02 K/uL Microcytosis PRESENT Target Cells 2+ Sodium Level 138 136-145 mmol/L Potassium Level 4.0 3.5-5.1 mmol/L Chloride Level 103 98-107 mmol/L Carbon Dioxide Level 27 21-32 mmol/L Anion Gap 8.0 3-11 mmol/L Blood Urea Nitrogen 5 7-18 mg/dl Creatinine 0.57 0.60-1.40 mg/dl Est Creatinine Clear Calc Drug Dose 143.0 ml/min Estimated GFR () > 150.0 Estimated GFR (Non- 148.9 BUN/Creatinine Ratio 9.3 10-20 Random Glucose 102 70-99 mg/dl Calcium Level 8.5 8.5-10.1 mg/dl Magnesium Level 1.9 1.8-2.4 mg/dl Total Bilirubin 2.9 0.2-1 mg/dl Direct Bilirubin 1.1 0-0.2 mg/dl Aspartate Amino Transf (AST/SGOT) 28 15-37 U/L Alanine Aminotransferase (ALT/SGPT) 43 12-78 U/L Alkaline Phosphatase 53 45-117 U/L Total Protein 6.5 6.4-8.2 gm/dl Albumin 3.2 3.4-5.0 gm/dl Lipase 491 73-393 U/L Assessment & Plan POD # 1 s/p laparoscopic cholecystectomy with intraoperative Cholangiogram -vitals stable - pain minimal controlled, appropriate post-op on exam - Total bilirubin down to 2.9 and direct to 1.1, Lipase down to 451 - tolerating clear liquids Plan: Would advance diet to low fat diet to see if he tolerates before discharge From surgical standpoint good for discharge Should follow-up in [address] Pipe Betancur has seen and examined patient, agrees with above stated findings and treatment plan.
[2017-01-22] MEDS: MAGNESIUM OXIDE 400 MG TAB PO SCH ×2 (08:54→13:25)
[2017-01-22] MEDS: PANTOprazole INJ 40 MG in SYRINGE 0 ML IV SCH (08:55)
[2017-01-22 11:28] VITALS: BP 124/76; PULSE 58; TEMP 36.6; O2SAT 99
[2017-01-22] MEDS ORDERED: OXYC-643 PO (12:45)
--- NOTE | 2017-01-22 12:56 | Discharge Instructions ---
Discharge Instructions Date of Service Jan 22, 2017. Admission Reason for Admission: Acute Cholecystitis, Acute Gallstone Pancreatitis Discharge Discharge Diagnosis / Problem: Acute cholecystitis, acute gallstone pancreatitis Discharge Goals Goal(s): Decrease discomfort, Improve function, Improve disease control, Diagnostic testing, Therapeutic intervention Activity Recommendations Activity Limitations: per Instructions/Follow-up section . Instructions / Follow-Up Instructions / Follow-Up You were admitted to the hospital with acute pancreatitis secondary to gallstones, as well as acute cholecystitis. You were treated by being kept nothing by mouth and given aggressive IV fluids. Once your acute pancreatitis resolved, you were taken to the OR for a laparoscopic cholecystectomy and cholangiogram. Your surgery revealed a normal-sized gall bladder and liver. The cholangiogram was also normal. You tolerated the procedure well and are now medically stable for discharge. Post-Surgical ~ Discharge Instructions Activity Recommendations: - lifting limitation: no more than 10 pounds for 2 weeks - exercise/sex/sports limit: non-strenuous for 2 weeks - driving or machine use limit: none for 1 week - Shower/bathe limit: may shower beginning tomorrow Diet: - Low fat diet until follow up with Dr. Betancur in 2 weeks SPECIAL CARE INSTRUCTIONS: - May shower in 24 hours. Let water run over area and pat dry. - Leave steri strips on for one week. - Call the surgeon's office with any questions or concerns - ( e.g. temperature higher than 101 degrees F, excessive bleeding or pain). MEDICATIONS: -You may continue your hydroxyurea 500 mg by mouth daily per Dr. Yee of hematology -Ibuprofen 600 mg every 6 hours with food - Percocet 1 tablet every 6 hours as needed for pain FOLLOW UP VISIT: - If not already scheduled, please call the office to schedule a two week follow-up appointment. Office number -- A referral has been placed for you to follow up with Dr. Benitez in 2 weeks. Current Hospital Diet Patient's current hospital diet: Low Fat Diet Discharge Diet Recommended Diet: Low Fat Diet Procedures Procedures Performed: Laparoscopic Cholecystectomy with Cholangiogram Pending Studies Studies pending at discharge: no Medical Emergencies . Who to Call and When: Medical Emergencies: If at any time you feel your situation is an emergency, please call 911 immediately. . Non-Emergent Contact Non-Emergency issues call your: Primary Care Provider Call Non-Emergent contact if: you have a fever, your pain is not controlled, your pain is worsening, your pain is unusual for you, your pain is concerning you, wound has increased drainage, wound has increased redness, wound has increased pain, you have any medication questions . Past History Medical & Surgical History: (1) Acute gallstone pancreatitis (2) Acute cholecystitis . "Provider Documentation" section prepared by Mariaa Covarrubias. Attending Attestation: Pt seen & examined on day of discharge and care plan d/w PA Mariaa Covarrubias. I agree w/ her discharge instructions as outlined. Juan Quiroz MD VTE Core Measure Inpt VTE Proph given/why not?: SCD's [place] Drug Monitoring Program Search Results: patient reviewed within database, no issues identified
--- NOTE | 2017-01-22 13:13 | Discharge Summary ---
Discharge Summary Date of Service Jan 22, 2017. (Mariaa Covarrubias PA-C) Discharge Summary Admission Date: Jan 17, 2017 at 01:30 Discharge Date: Jan 22, 2017 Discharge Disposition: Home Principal Diagnosis: Acute gallstone pancreatitis, acute cholecystitis Problems/Secondary Diagnoses: Sickle cell anemia Procedures: Patient: KATHERIN PINZON Admit Date: 01/16/1703/25/17 Med Rec: [id number] Acct ID: [id number] [~ rep ct labl] Page 2of 2 p: [~ rep prt dt last] [~ rep prt tm last] [~ rep ct labl] Page 1of 1 p: [~ rep prt dt last] [~ rep prt tm last] OPERATIVE REPORT [place], [place] Patient: KATHERIN PINZON Admit Date: 01/16/1703/26/17 Med Rec: [id number] Att Phy: Juan Quiroz MD Acct ID: [id number] Fam Phy: [facility] Date: 1995 Ref Phy: [facility] Age: 21 Location: [facility] Sex: Room/Bed: [facility] MNE:[facility] REPORT #: [id number] CC: Jama Betancur M.D. Endcc: DICTATED BY: Jama Betancur M.D. DATE OF OPERATION: 01/21/2017 PREOPERATIVE DIAGNOSIS: Cholelithiasis, gallbladder sludge with history of pancreatitis. POSTOPERATIVE DIAGNOSIS: Same. PROCEDURE: Laparoscopic cholecystectomy with intraoperative cholangiogram. SURGEON: Dr. Betancur. SAFE [employer]ULT MECHANIC: Faye Andrade PA-C. FINDINGS: The gallbladder was of normal size. The cystic duct was not dilated. The liver was of normal size and contour. The visible bowel appeared normal. The cholangiogram was performed. There was free flow into the duodenum. There was flow into the radicles. There was no evidence of filling defect. TECHNIQUE: The patient was given a general anesthetic and the area was prepped and draped in the usual sterile fashion. Transverse incision was made below the umbilicus, carried down through the subcutaneous tissue to the fascia which was grasped with 2 Ondina clamps and incised between. The peritoneum was identified, incised, and the introducer was placed bluntly. The abdomen was then insufflated to a pressure of 15 mmHg with carbon dioxide. The upper midline, mid clavicular, and anterior axillary introducers were placed under direct vision through small skin incisions. Traction was placed on the gallbladder, and beginning on the lateral side of the infundibulum, the peritoneum was opened and peeled down toward the common bile duct. The infundibulum was dissected away from the liver on that side. Further dissection was carried similarly on the anterior surface of the infundibulum and into the triangle of Calot which was opened. The infundibulum was dissected away from the infundibulum on the medial side. Further dissection of connective tissue and lymphatics were peeled toward the common bile duct and the cystic duct was identified. A plane was able to be established behind the cystic duct by performing further dissection. The cystic duct-gallbladder junction was confirmed. A clip was placed near the cystic duct-gallbladder junction and the cystic duct was partially transected. The cholangiocatheter was placed in the duct and the balloon was inflated. It was irrigated, there was no leak. Cholangiogram was performed with findings as above. Cholangiocatheter was removed and 3 clips were placed in the proximal cystic duct and transection was completed. That allowed me to visualize easily the cystic artery, isolated, clamped twice proximally and once near the gallbladder and divided. The gallbladder was peeled off the liver bed, and in doing so, there was a posterior branch of the artery that was identified in 2 places. It was clamped, divided, and the division of the attachments of the gallbladder to the liver were taken down and the gallbladder was freed. It was placed into an Endobag and brought out through the upper midline incision. The introducer was replaced and the liver edge was elevated. The subdiaphragmatic and subhepatic spaces were irrigated and the irrigation removed and that was repeated until the return was clear. The gallbladder bed of the liver was inspected and there was no bleeding. The previously placed clips were inspected and were intact. The gas was allowed to escape and the introducers were removed. The fascia of the umbilical introducer site and the upper midline introducer sites were closed with interrupted 0 Vicryl and skin of all the incisions was closed with 4-0 Monocryl in either an interrupted or running subcuticular fashion. The skin was cleansed, dried, benzoin placed and Steri-Strips applied. The estimated blood loss was 5 mL. Sponge, needle and instrument counts were correct prior to closure. The patient tolerated surgical procedure without complication and was transferred to recovery. I attest to the content of the Intraoperative Record and any orders documented therein. Any exceptions are noted below. Dictated: 01/21/17 2310 Transcribed: 01/22/17 0134 <Electronically signed by Jama Betancur M.D.> Signed: 01/22/17 0836 ES Jama Betancur M.D. The status of this report is Signed. Draft = Not yet reviewed or approved by Medical Physician. Signed = Reviewed and approved by Medical Physician. Consultations: General surgery--Dr. Betancur Hematology--Dr. Benitez/Dr. Yee Gastroenterology--Dr. Faith (Mariaa Covarrubias, PA-C) Problems/Secondary Diagnoses: hypomagnesemia - resolved abnormal LFTs 2nd to acute cholecystitis - resolving h/o splenic infarct Procedures: MRCP gall bladder ultrasound (Juan Quiroz MD) Medication Reconciliation Changed Medications: Oxycodone/Acetaminophen 5MG/325MG (Oxycodone/Acetaminophen 5MG/325MG) 1 Tab Tab 1 TABLET PO Q6H PRN for Pain for 3 Days, #9 TAB (Changed from: Oxycodone/ Acetaminophen 10MG/325MG (Percocet 10MG/325MG) Tab 1 Tab PO DIRECTED PRN Pain 10 Days #20 TAB NS) Take one tablet by mouth every 6 hours as needed for pain Continued Medications: Hydroxyurea (Hydrea Cap) 500 Mg Cap 500 MG PO DAILY for 30 Days, #30 CAP NS Ondansetron Hcl (Zofran) 4 Mg Tab 4 MG PO Q6H PRN for Nausea, TAB Referrals At Discharge Follow up Referrals: Oncology/Hematology Referral - Within 2 Weeks with Jeronimo Benitez D.O. Surgery Referral - Within 2 Weeks with Jama Betancur M.D. Discharge Exam Patient is doing well postoperatively. He currently complains of a mild 2/10 sore, aching pain in his right flank. He denies any nausea or vomiting. He is tolerating a low-fat diet well. The patient denies fevers, chills, sweats, chest pain, palpitations, claudication, cough, wheezing, shortness of breath, nausea, vomiting, dysuria, hematuria, urinary retention, paralysis, weakness, numbness and tingling. Review of Systems: Constitutional: + fatigue, No chills, No fever, No sweats Eyes: No diplopia, No eye pain, No worsening of vision ENT: No hearing loss, No sore throat, No trouble swallowing Respiratory: No cough, No shortness of breath, No wheezing Cardiovascular: No chest pain, No claudication, No palpitations Abdomen: + pain, No nausea, No vomiting Musculoskeletal: No calf pain, No joint pain, No muscle pain Genitourinary - Male: No dysuria, No hematuria, No urinary retention Neurologic: No numbness/tingling, No paralysis, No weakness Integumentary: No color change, No itch, No rash Physical Exam: General Appearance: WD/WN, no apparent distress, + thin Eyes: normal inspection, PERRL, EOMI ENT: normal ENT inspection, hearing grossly normal, pharynx normal Neck: supple, no JVD, trachea midline Respiratory/Chest: lungs clear, normal breath sounds, no respiratory distress Cardiovascular: regular rate, rhythm, no gallop, no murmur Abdomen / GI: normal bowel sounds, soft, + tenderness (R flank and RUQ TTP) , + pertinent finding (lap colby incisions covered with steri strips. wounds clean) Extremities: no calf tenderness, normal capillary refill, no pedal edema Neurologic/Psychiatric: alert, normal mood/affect, oriented x 3 Skin: normal color, warm/dry, no rash (Mariaa Covarrubias ., PA-C) Hospital Course 21 y/o male with a history of sickle cell anemia presents to the ED on 01/16 with abdominal pain, nausea, and vomiting. Acute gallstone pancreatitis/acute cholecystitis--improving. Pt met sepsis criteria on admission with tachycardia, WBC >12K and source of infection -Ad[facility] to [facility] -Hypoglycemia resolved, BSG 146 on 01/20. IV fluids changed to Lactated Ringer' s at 100 cc/hr -GI consulted, appreciate recs: Start clear liquid diet. Continue IVF at 250 cc/hr until 01/19. GI signed off 01/18. -Consult general surgery for cholecystectomy evaluation, appreciate recs: Laparoscopic cholecystectomy with cholangiogram on 01/21. Patient tolerated well. Cholangiogram normal. Spoke with Dr. Betancur, patient is cleared for discharge if able to tolerate low-fat diet. -Tolerating low-fat diet on discharge -D/C IV Zosyn -Dilaudid changed to morphine per patient request -Continue nausea control with IV Zofran and Phenergan -Protonix 40 mg IV qd -LFTs improved. Total bilirubin 2.9 on discharge, improved from 3.5. AST and ALT within normal limits. -Lipase 491 on discharge, improved from 745. -Discharged with Percocet 5/325 1 tablet q6h prn pain x 3 days. May continue home Zofran as needed for nausea Hypomagnesemia--resolved -Magnesium 1.4 on 01/18 -Given magnesium sulfate 1 g IV 1 -Magnesium 1.7 on 01/19 -Second bag of magnesium sulfate 1 g IV ordered, however, patient reported burning during infusion and did not complete the bag. Patient was given oral supplementation instead. -Magnesium remains at 1.7 on 01/20 -Magnesium oxide 400 mg PO TID -Repeat magnesium on 01/21 at 2.0 Sickle cell anemia--stable -Hgb 9.5 on discharge -Hematology consulted, appreciate recs: Spoke with Dr. Yee, patient may resume hydroxyurea DVT prophylaxis -SCDs Code Status -Level I, FULL RESUSCITATION STATUS Dispo -Patient medically stable for discharge, will return home This chart was completed in part utilizing [employer] Voice Recognition software. Attempts were made to minimize the grammatical errors, random word insertions, pronoun errors and incomplete sentences. Any formal questions or concerns about the content, text or information contained within the body of this dictation should be directly addressed to the provider for clarification. Total Time Spent: Greater than 30 minutes This includes examination of the patient, discharge planning, medication reconciliation, and communication with other providers. (Mariaa Covarrubias ., NADEEM) Attending Attestation & Discharge Note: Pt seen/examined, chart reviewed, and care plan d/w PEDRO Covarrubias on day of discharge. I agree with the arzate components of her discharge summary. 21yo male with known sickle cell disease who presented with abdominal pain and markedly elevated LFTs. Found to have gallstone pancreatitis. Seen in consult by gastroenterology, heme/onc, and general surgery. Was treated medically for the pancreatitis in customary fashion, and after several days of recovery, underwent an uncomplicated laparoscopic cholecystectomy Post-op his LFTs and lipase remained stable. Intra-op cholangiogram failed to show a CBD stone. From a hematological standpoint he was stable while here with Hb 9-10 range and no sickle crisis. He will follow-up with [facility], Dr. eBtancur, and the heme/ onc clinic after discharge. Discharge exam - gen - nad eyes - scant icterus mouth - MMM heart - RRR, s1, s2 lungs - CTA b/l abd - soft, ND, BS+, minimal tenderness skin - surgical sites on abd wall clean ext - no edema Juan Quiroz MD Total Time Spent: Less than 30 minutes (Juan Quiroz MD) Discharge Instructions Please refer to the electronic Patient Visit Report (Discharge Instructions) for additional information. (Mariaa Covarrubias ., PA-C) Follow-Up 1. [facility] on WedJanuary 26 at 2:15 2. Jama Betancur MD - [facility] general surgery - within 2 weeks 3. [facility] [place] [place] - Dr. Benitez or Dr. Yee - within 2 weeks (Juan Quiroz MD) Additional Copies To Jama Betancur M.D.; Jeronimo Benitez D.O.; Sumit Yee D.O.; [facility]
[2017-01-22 14:26] VITALS: BP 124/76; PULSE 58; TEMP 36.6; O2SAT 99
== END 2017-01-22 15:44 | disposition home or self-care (01) | DRG 418 ==
LOC: ENRESERVDT → ENRESERVTM → C.EDB 21:05 → C.MSN 01-17 01:30
PROVIDERS: ADMIT Hospitalist; ATTEND Internal Medicine
PROC: 0FT44ZZ Resection of Gallbladder, Percutaneous Endoscopic Approach (ICD-10-PCS; principal; 2017-01-21 13:30)
DX: K85.10 Biliary acute pancreatitis without necrosis or infection (principal); R17 Unspecified jaundice; K81.2 Acute cholecystitis with chronic cholecystitis; D56.4 Hereditary persistence of fetal hemoglobin [HPFH]; E83.42 Hypomagnesemia; E87.6 Hypokalemia; D57.1 Sickle-cell disease without crisis; F17.200 Nicotine dependence, unspecified, uncomplicated; Z83.3 Family history of diabetes mellitus; Z82.49 Family history of ischemic heart disease and other diseases of the circulatory system; Z84.1 Family history of disorders of kidney and ureter

== ENCOUNTER 2017-12-08 00:33 | Emergency (ER) | payer OTHER ==
[~2017-12-08] VITALS: Ht 165.1 cm; Wt 46.4 kg
[~2017-12-08 00:33] MED LIST changes: -HYDR500C3 PO; +ONDA4TAB46 PO; -OXYC-106 PO
[2017-12-08 00:41] VITALS: TEMP 36.8; Ht 165.1 cm; Wt 46.4 kg
[2017-12-08] MEDS ORDERED: SODIUM CHLORIDE 0.9% 1000ML 1,000 ML IV STA (00:51)
[2017-12-08] MEDS ORDERED: ONDANSETRON INJ 2 MG/ML 2 ML VIAL IV STA (00:51)
[2017-12-08] MEDS ORDERED: HYDROmorphone INJ 1 MG/ML SYR IV STA ×2 (00:51→02:26)
[2017-12-08 01:13] LABS: RETIC COUNT % 1.4 % (0.5-2.0)
[2017-12-08 01:33] LABS: ALBUMIN 4.5 gm/dl (3.4-5.0); ALT/SGPT 58 U/L (12-78); AST/SGOT 73 U/L (15-37); BLOOD UREA NITROGEN 13 mg/dl (7-18); CALCIUM 8.7 mg/dl (8.5-10.1); CARBON DIOXIDE 21 mmol/L (21-32); CREATININE 0.72 mg/dl (0.60-1.40); GLUCOSE 82 mg/dl (70-99); LIPASE 79 U/L (73-393); POTASSIUM 3.6 mmol/L (3.5-5.1); SODIUM 134 mmol/L (136-145)
[2017-12-08 01:36] LABS: ALKALINE PHOSPHATASE 57 U/L (45-117); TOTAL PROTEIN 8.5 gm/dl (6.4-8.2)
[2017-12-08 01:39] LABS: BASO % 0.3 %; BASO ABS # 0.04 K/uL (0-0.2); EOS % 0.4 %; EOS ABS # 0.06 K/uL (0-0.5); HEMATOCRIT 29.9 % (42-52); IG# 0.03 K/uL (0.00-0.02); LYMPH % 21.7 %; LYMPH ABS # 2.93 K/uL (1.2-3.4); MEAN CELL VOLUME 74.6 fL (80-100); MEAN CORPUSCULAR HEMOGLOBIN 27.4 pg (25-34); MEAN CORPUSCULAR HGB CONC 36.8 g/dl (32-36); MONO % 9.4 %; MONO ABS # 1.27 K/uL (0.11-0.59); PLATELET COUNT 133 K/uL (130-400); RED CELL DISTRIBUTION WIDTH CV 15.5 % (11.5-14.5); RED CELL DISTRIBUTION WIDTH SD 41.8 fL (36.4-46.3); WHITE BLOOD COUNT 13.53 K/uL (4.8-10.8)
[2017-12-08] MEDS ORDERED: OPTIRAY 320 IV PRN (04:15)
[2017-12-08] MEDS ORDERED: ALUMINUM/MAGNESIUM/SIMETH (MAALOX MAX) 30 ML UDC PO PRN (05:30)
[2017-12-08] MEDS ORDERED: HYDROmorphone INJ 1 MG/ML SYR IV PRN (05:30)
[2017-12-08] MEDS ORDERED: D5NSS + 20MEQ KCL 1,000 ML IV SCH (05:30)
[2017-12-08] MEDS ORDERED: MAGNESIUM HYDROXIDE SUSP 30 ML UDC PO PRN (05:30)
[2017-12-08] MEDS ORDERED: ONDANSETRON INJ 2 MG/ML 2 ML VIAL IV PRN (05:30)
[2017-12-08] MEDS ORDERED: OXYCODONE/ACETAMINOPHEN 10/325MG TAB PO PRN (05:30)
[2017-12-08] MEDS ORDERED: POLYETHYLENE (MIRALAX) 17 GM PACK PO PRN (05:45)
--- NOTE | 2017-12-08 05:55 | EMERGENCY ROOM VISIT NOTE ---
History First contact with patient: 00:46 Chief Complaint: ABDOMINAL PAIN Stated Complaint: PAIN OVER LEFT SIDE OF STOMACH Nursing Triage Summary: pt reports that he woke up at 2300 with LUQ pain. denies N/V/D. hx sickle cell and spleen infarct. History of Present Illness The patient is a 22 year old male who presents to the Emergency Room with complaints of severe left upper quadrant pain for the past few hours as a history of sickle cell and splenic infarct. Symptoms were similar. He follows with Dr. Benitez. He describes the pain as severe, 9 out of 10. Nothing makes it better or worse. Patient denies chest pain, dyspnea, fever, chills, nausea, vomiting, diarrhea, back pain, urinary symptoms. Patient has had his gallbladder out already. Review of Systems An 10 system review of systems was completed with positives and pertinent negatives listed in the HPI. Past Medical/Surgical History Medical Problems: (1) Acute cholecystitis (2) Acute gallstone pancreatitis (3) Elevated bilirubin (4) Intractable abdominal pain (5) Sickle cell anemia (6) Sickle cell anemia (7) Sickle cell crisis (8) Splenic infarct Family History Diabetes mellitus FH: heart disease Hypertension Kidney disease Social History Smoking Status: Never Smoker Alcohol Use: none Drug Use: none Marital Status: single 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: [employer] Current/Historical Medications No Active Prescriptions or Reported Meds Physical Exam Vital Signs Date Time Temp Pulse Resp B/P (MAP) Pulse Ox O2 Delivery O2 Flow Rate FiO2 12/08/17 05:20 104 16 114/60 98 Room Air 12/08/17 03:35 96 16 106/56 95 Room Air 12/08/17 02:32 96 20 119/72 100 Room Air 12/08/17 00:41 36.8 117 18 142/79 100 Room Air Physical Exam VITALS: Vitals are noted on the nurse's note and reviewed by myself. Vital signs stable. GENERAL: Pleasant male who appears in pain, in no acute distress, nondiaphoretic , well-developed well-nourished. SKIN: The skin was without rashes, erythema, edema, or bruising. There is no tenting of the skin. Capillary reflex less than 2 seconds. HEAD: Normocephalic atraumatic. EARS: External auditory canals clear, tympanic membranes pearly mderano without erythema or effusion bilaterally. EYES: Pupils equal round and reactive to light and accommodation. Conjunctivae without injection, sclerae without icterus. Extraocular movements intact. NOSE: Patent, turbinates without inflammation or discharge. MOUTH: Mucous membranes moist. . Pharynx without erythema or exudate. Uvula midline. Airway patent. Tongue does not deviate. NECK: Supple without nuchal rigidity. No lymphadenopathy. No thyromegaly. Cervical spine is nontender. No JVD. HEART: Regular rate and rhythm without murmurs gallops or rubs. LUNGS: Clear to auscultation bilaterally without wheezes, rales or rhonchi. No dullness to percussion. No retractions or accessory muscle use. ABDOMEN: Positive bowel sounds x 4. Normal tympanic percussion. Soft, tender to palpation left upper quadrant, no CVA tenderness, without masses or organomegaly. Ruelas sign negative. No guarding or rebound tenderness. MUSCULOSKELETAL: No muscle atrophy, erythema, or edema noted. NEURO: Patient was alert and oriented to person place and time. No focal neurological deficits. Medical Decision & Procedures Laboratory Results 12/08/17 01:05 Red Blood Count 4.01, Mean Corpuscular Volume 74.6, Mean Corpuscular Hemoglobin 27.4, Mean Corpuscular Hemoglobin Concent 36.8, Neutrophils (%) (Auto) 68.0, Lymphocytes (%) (Auto) 21.7, Monocytes (%) (Auto) 9.4, Eosinophils (%) (Auto) 0.4, Basophils (%) (Auto) 0.3, Neutrophils # (Auto) 9.20, Lymphocytes # (Auto) 2.93, Monocytes # (Auto) 1.27, Eosinophils # (Auto) 0.06, Basophils # (Auto) 0.04 12/08/17 01:05 Test 12/08/17 01:05 White Blood Count 13.53 K/uL (4.8-10.8) Red Blood Count 4.01 M/uL (4.7-6.1) Hemoglobin 11.0 g/dL (14.0-18.0) Hematocrit 29.9 % (42-52) Mean Corpuscular Volume 74.6 fL (80-100) Mean Corpuscular Hemoglobin 27.4 pg (25-34) Mean Corpuscular Hemoglobin Concent 36.8 g/dl (32-36) Platelet Count 133 K/uL (130-400) Neutrophils (%) (Auto) 68.0 % Lymphocytes (%) (Auto) 21.7 % Monocytes (%) (Auto) 9.4 % Eosinophils (%) (Auto) 0.4 % Basophils (%) (Auto) 0.3 % Neutrophils # (Auto) 9.20 K/uL (1.4-6.5) Lymphocytes # (Auto) 2.93 K/uL (1.2-3.4) Monocytes # (Auto) 1.27 K/uL (0.11-0.59) Eosinophils # (Auto) 0.06 K/uL (0-0.5) Basophils # (Auto) 0.04 K/uL (0-0.2) RDW Standard Deviation 41.8 fL (36.4-46.3) RDW Coefficient of Variation 15.5 % (11.5-14.5) Immature Granulocyte % (Auto) 0.2 % Immature Granulocyte # (Auto) 0.03 K/uL (0.00-0.02) Platelet Estimate NORMAL Target Cells 1+ Absolute Reticulocyte Count 0.05 10^6/uL (0.02-0.10) Percent Reticulocyte Count 1.4 % (0.5-2.0) Immature Reticulocyte Fraction 13.4 % (2.3-13.4) Reticulocyte Hemoglobin Content 31.2 PG (28.2-36.6) Urine Color DK YELLOW Urine Appearance CLEAR (CLEAR) Urine pH 5.0 (4.5-7.5) Urine Specific [place] 1.015 (1.000-1.030) Urine Protein NEG (NEG) Urine Glucose (UA) NEG (NEG) Urine Ketones TRACE (NEG) Urine Occult Blood NEG (NEG) Urine Nitrite NEG (NEG) Urine Bilirubin NEG (NEG) Urine Urobilinogen NEG (NEG) Urine Leukocyte Esterase NEG (NEG) Anion Gap 12.0 mmol/L (3-11) Est Creatinine Clear Calc Drug Dose 107.4 ml/min Estimated GFR () > 150.0 Estimated GFR (Non- 134.3 BUN/Creatinine Ratio 18.3 (10-20) Calcium Level 8.7 mg/dl (8.5-10.1) Total Bilirubin 2.7 mg/dl (0.2-1) Direct Bilirubin 0.4 mg/dl (0-0.2) Aspartate Amino Transf (AST/SGOT) 73 U/L (15-37) Alanine Aminotransferase (ALT/SGPT) 58 U/L (12-78) Alkaline Phosphatase 57 U/L (45-117) Total Protein 8.5 gm/dl (6.4-8.2) Albumin 4.5 gm/dl (3.4-5.0) Lipase 79 U/L (73-393) Medications Administered Medications (Trade) Dose Ordered Sig/Enmanuel Route Start Time Stop Time Status Last Admin Dose Admin Sodium Chloride 1,000 ml @ 999 mls/hr Q1H1M STAT IV 12/08/17 00:51 12/08/17 01:55 DC 12/08/17 01:09 999 MLS/HR Hydromorphone HCl (Dilaudid Inj) 1 mg NOW STAT IV 12/08/17 00:51 12/08/17 00:54 DC 12/08/17 01:10 1 MG Ondansetron HCl (Zofran Inj) 4 mg NOW STAT IV 12/08/17 00:51 12/08/17 00:54 DC 12/08/17 01:09 4 MG Hydromorphone HCl (Dilaudid Inj) 1 mg NOW STAT IV 12/08/17 02:26 12/08/17 02:27 DC 12/08/17 02:35 1 MG ED Course Prior records/ancillary studies reviewed. Triage Nursing notes reviewed. The patient's history was concerning for abdominal pain. Differential diagnosis: Etiologies such as sickle cell crisis, splenic infarct, appendicitis, diverticulitis, PUD, UTI, pancreatitis, obstruction, mesenteric ischemia, aortic pathology, infections, inflammatory bowel disease, renal colic, as well as others were entertained. Physical examination findings: As above. ER treatment provided: Dilaudid, Zofran, IV fluids On reassessment the patient felt better. Diagnostics interpreted by me: The labs revealed mild anemia. Normal retic count; chronically elevated bilirubin Imaging studies: CT ABDOMEN & PELVIS With Contrast: Comparison: 01/14/2017. Lower thorax is unremarkable. Gallbladder is surgically absent. Heterogeneous attenuation of the spleen with present around infarcts noted. Pancreas and adrenal glands are unremarkable. Kidneys, ureters and urinary bladder are unremarkable. Bowel is unremarkable. Appendix is not visualized. No acute osseous abnormality. Radiologist: Aashish Ma MD Consultation: A consultation was placed with the hospitalist, Dr. Eubanks. The case was discussed and diagnostics were reviewed. The patient was evaluated in the ER for further treatment. Exam and history seem consistent with splenic infarct. Patient had a mild anemia improving per chart review. Chronically elevated bilirubin. Patient refused admission. He states he would rather go home and follow-up outpatient with hematology. Patient was informed that a splenic infarct. He has had this before. He understands the risks involved such as further injury to his spleen or blood clots and verbalized understanding of this. He was strongly encouraged to follow-up within a day or 2 with his utilization review coordinator or with family care for reevaluation or here in the ER sooner for further evaluation treatment , fevers, pain, worsening signs or symptoms or as needed. Patient ambulated out of the ER without difficulties. By the evaluation outlined above emergent etiologies such as appendicitis, diverticulitis, PUD, biliary pathology, UTI, pancreatitis, obstruction, mesenteric ischemia, aortic pathology, infections, inflammatory bowel disease, renal colic, as well as others were deemed relatively unlikely. The pt informed about the findings as listed above. All questions were answered and pleased with the treatment. Return instructions were outlined and the patient was discharged in stable condition. Outpatient prescription management: [facility] Referral: The patient was referred back to their primary care physician for follow-up in 2 to 3 days for a recheck of the current condition. Case reviewed with my attending Medical Decision As above [place] Drug Monitoring Program Search Results: patient reviewed within database, no issues identified Medication Reconcilliation Current Medication List: was personally reviewed by me Blood Pressure Screening Patient's blood pressure: Elevated blood pressure Blood pressure disposition: Elevated BP felt to be situational Impression Primary Impression: Splenic infarct Departure Information Dispostion Home / Self-Care Condition FAIR Prescriptions No Active Prescriptions or Reported Meds Referrals Jeronimo Benitez D.O. (PCP) Patient Instructions My [facility] Additional Instructions DO NOT drive, drink alcohol, operate machinery, or perform dangerous activities today. You were given medications in the ER that can affect your ability to safely function or operate a vehicle. Oxycodone (OxyIR) 5mg: Take 1-2 pills every four hours for breakthrough pain. Avoid alcohol, operating machinery or dangerous equipment, working on ladders or roofs, DRIVING, or situations where being under the influence may be dangerous. It is recommended to use an [id number] stool softener such as Colace, 100mg twice daily while taking this medication to avoid constipation. Ibuprofen(Motrin, Advil) may be used for fever or pain. Use 600mg every six hours as needed. Take with food. Avoid using more than 2400mg in a 24 hour period. Do not use 2400mg per day for more than three consecutive days without physician direction. Prolonged inappropriate use can lead to stomach upset or ulcers. This medication can be taken if you need to drive, work, or perform activities which may be dangerous when taking narcotic pain medication. (AND/OR) Acetaminophen(Tylenol) may be used for fever or pain. Use 1000mg every six hours as needed. Avoid using more than 3000mg in a 24 hour period. This medication can be taken if you need to drive, work, or perform activities which may be dangerous when taking narcotic pain medication. Zofran 4mg: Take one every six hours as needed for nausea. Avoid alcohol, operating machinery or dangerous equipment, working on ladders or roofs, DRIVING , or situations where being under the influence may be dangerous. Rest and drink plenty of fluids as tolerated. Continue current medications. Call your utilization review coordinator today to make a follow-up appointment with the next few days. Return to the ER immediately for worsening or persistent abdominal pain, vomiting, fevers, chest pains, difficulty breathing, black or bloody stools, worsening of your condition, or as needed. Follow up with your primary physician in 1-2 days for a recheck of your current condition.
[2017-12-08] MEDS ORDERED: ONDA4TAB10 SL (05:57)
[2017-12-08] MEDS ORDERED: OXYC1TAB3 PO (05:57)
[2017-12-08] MEDS ORDERED: OXYCODONE IR HOME PACK PO ONE (06:00)
[2017-12-08] MEDS ORDERED: ONDANSETRON HOME PACK 4MG OD TAB PO ONE (06:00)
[2017-12-08 06:17] VITALS: BP 112/64; PULSE 94; O2SAT 97
--- NOTE | 2017-12-08 07:04 | DIAGNOSTIC IMAGING REPORT ---
(SPLEEN) ABD LTD HISTORY: 22 years-old Male LUQ, SS pt, hx splenic infarct acute left upper quadrant abdominal pain. History of sickle cell. COMPARISON: CT abdomen and pelvis of same day and also 11/01/2016, ultrasound 11/01/2016 TECHNIQUE: Multiple real-time sonographic images of the spleen were obtained assessing grayscale appearance and color flow FINDINGS: There is improved sonographic appearance of the spleen from comparison studies dated 11/01/2016. The spleen is heterogeneous throughout and demonstrates mild perisplenic fluid. Focal area of decreased echogenicity are seen near the superior and inferior portions of the spleen measuring up to 3.7 cm suggesting area of prior infarction. The spleen measures up to 11.2 cm in length. Splenic artery appears patent. No hydronephrosis of the left kidney. IMPRESSION: Overall improved appearance of the spleen from comparison studies dated 11/01/2016 which again appears heterogeneous with trace perisplenic fluid. Focal areas of decreased echogenicity along the superior and inferior margins of the spleen suggest areas of prior infarction. The above report was generated using voice recognition software. It may contain grammatical, syntax or spelling errors. Electronically signed by: Salazar Daniels M.D. 12/08/2017 7:03 AM Dictated Date/Time: 12/08/2017 6:56 AM
--- NOTE | 2017-12-08 07:38 | DIAGNOSTIC IMAGING REPORT ---
ABDOMEN AND PELVIS CT WITH IV CONTRAST CT DOSE: 263.26 mGy.cm HISTORY: Acute severe left upper quadrant abdominal pain with history of sickle cell disease and recent splenic infarction severe left abd pain, SS, hx splenic infarct TECHNIQUE: Multiaxial CT images of the abdomen and pelvis were performed following the use of intravenous contrast. A dose lowering technique was utilized adhering to the principles of ALARA. COMPARISON STUDY: Splenic ultrasound of same day, CT and ultrasound 11/01/2016 and 01/14/2017. FINDINGS: Lung bases are generally clear. There is no pneumatosis or pneumoperitoneum identified. Imaged inferior cardiac chambers are unremarkable. Prior cholecystectomy. Mild periportal edema likely secondary to overhydration. Liver is otherwise unremarkable. Pancreas and adrenal glands are within normal limits. There is improved appearance of the spleen from comparison study 01/14/2017 which again appears heterogeneous with decreased size of the splenic infarctions. Spleen is decreased in size, now measuring 11 cm, previously 13 cm in length. Decreased enhancement within the inferior medial portions of the spleen again noted compatible with areas of infarction. Kidneys, ureters and urinary bladder are unremarkable. Aorta is normal in both course and caliber. No bulky adenopathy. Unchanged mildly prominent mesenteric lymph nodes are seen throughout. Fluid-filled nondilated loops of small bowel are likely physiologic. No bowel obstruction or focal bowel wall thickening. The appendix appears unchanged from comparison study and is nondilated within the right lower quadrant. Soft tissues are unremarkable. Bones appear intact. IMPRESSION: 1. Improved appearance of the spleen which has slightly decreased in size from most recent comparison study. Areas of prior splenic infarction have also decreased in size. 2. Prior cholecystectomy. 3. Unchanged mild mesenteric adenopathy. 4. No bowel obstruction or focal bowel wall thickening. Electronically signed by: Salazar Daniels M.D. 12/08/2017 7:36 AM Dictated Date/Time: 12/08/2017 7:29 AM
[2017-12-08] MEDS ORDERED: HEPARIN SOD 5000 UNIT/0.5 ML CARP SQ SCH (09:00)
== END 2017-12-08 06:18 | disposition home or self-care (01) ==
LOC: C.EDB 00:35 → ENRESERV 05:41 → CANBEDREQ 05:54 → C.EDB 06:18
DX: R10.12 Left upper quadrant pain (principal); D57.1 Sickle-cell disease without crisis; R17 Unspecified jaundice; R03.0 Elevated blood-pressure reading, without diagnosis of hypertension; Z90.49 Acquired absence of other specified parts of digestive tract; Z83.3 Family history of diabetes mellitus; Z82.49 Family history of ischemic heart disease and other diseases of the circulatory system; Z84.1 Family history of disorders of kidney and ureter